=== PATIENT | male | born 1970 | race Caucasian/White ===

== ENCOUNTER 2019-06-21 18:06 | Inpatient (IN) | payer SELFPAY ==
[~2019-06-21] VITALS: Ht 182.9 cm; Wt 98.3 kg
[~2019-06-21 18:06] MED LIST: ASPI325EC PO; LISI20 PO; LISI5 PO; MULVITMIND PO; OMEP20ER PO; OXYACE5T PO; Prilosec Otc20 MG PO
[2019-06-21 18:55] LABS: BASOPHILS ABSOLUTE AUTO 0.02 K/mm3 (0.00-0.23); BASOPHILS PERCENT AUTO 0 % (0-2); EOSINOPHILS ABSOLUTE AUTO 0.01 K/mm3 (0.00-0.68); EOSINOPHILS PERCENT AUTO 0 % (0-6); Hematocrit 32.5 % (37.0-53.0); Hemoglobin 10.9 g/dL (13.5-17.5); IMMATURE GRAN ABSOLUTE AUTO 0.06 K/mm3 (0.00-0.10); IMMATURE GRAN PERCENT AUTO 1 % (0-1); LYMPHOCYTES ABSOLUTE AUTO 0.77 K/mm3 (0.84-5.20); LYMPHOCYTES PERCENT AUTO 17 % (21-46); MONOCYTES ABSOLUTE AUTO 0.43 K/mm3 (0.16-1.47); MONOCYTES PERCENT AUTO 10 % (4-13); Mean Corpuscular HGB 31.1 pg (26.0-34.0); Mean Corpuscular HGB Conc 33.5 g/dL (31.5-36.5); Mean Corpuscular Volume 93 fL (80-100); Mean Platelet Volume 11.1 fL (9.1-12.4); NEUTROPHILS PERCENT AUTO 71 % (41-73); Platelet Count 67 K/mm3 (150-400); RDW Coefficient Variation 18.7 % (11.7-14.2); RDW Standard Deviation 63.5 fL (35.1-46.3); White Blood Cell Count 4.49 K/mm3 (4.00-11.30)
[2019-06-21 19:04] LABS: Alanine Aminotransfer (ALT/SGP 18 U/L (12-78); Albumin, Blood 2.8 g/dL (3.4-5.0); Albumin/Globulin Ratio 0.6 (0.8-1.8); Alk Phos 73 U/L (50-136); Anion Gap 18 mmol/L (6-16); Aspartate Aminotrans (AST/SGOT 111 U/L (12-37); Bilirubin, Total 2.5 mg/dL (0.1-1.0); Blood Urea Nitrogen 5 mg/dL (8-24); Bun/Creatinine Ratio 11.5 (12.0-20.0); CO2, Blood 19 mmol/L (21-32); Calcium, Blood 6.2 mg/dL (8.5-10.1); Chloride, Blood 92 mmol/L (98-108); Creatinine, Blood 0.43 mg/dL (0.60-1.20); Ethanol (Alcohol), Blood, Med 90 mg/dL; Glomerular Filtration Rate >60 (60-); Glucose, Blood 66 mg/dL (70-99); Potassium, Blood 2.5 mmol/L (3.5-5.5); Sodium, Blood 129 mmol/L (136-145); Total Protein, Blood 7.8 g/dL (6.4-8.2)
[2019-06-21 19:50] LABS: Magnesium, Blood 0.4 mg/dL (1.6-2.4)
[2019-06-21 19:51] LABS: Beta-hydroxybutyrate 57.1 mg/dL (0.2-2.8)
[2019-06-22 04:31] LABS: BASOPHILS ABSOLUTE AUTO 0.02 K/mm3 (0.00-0.23); BASOPHILS PERCENT AUTO 1 % (0-2); EOSINOPHILS ABSOLUTE AUTO 0.02 K/mm3 (0.00-0.68); EOSINOPHILS PERCENT AUTO 1 % (0-6); Hematocrit 27.9 % (37.0-53.0); Hemoglobin 9.4 g/dL (13.5-17.5); IMMATURE GRAN ABSOLUTE AUTO 0.04 K/mm3 (0.00-0.10); IMMATURE GRAN PERCENT AUTO 1 % (0-1); LYMPHOCYTES ABSOLUTE AUTO 0.65 K/mm3 (0.84-5.20); LYMPHOCYTES PERCENT AUTO 17 % (21-46); MONOCYTES ABSOLUTE AUTO 0.33 K/mm3 (0.16-1.47); MONOCYTES PERCENT AUTO 9 % (4-13); Mean Corpuscular HGB 31.2 pg (26.0-34.0); Mean Corpuscular HGB Conc 33.7 g/dL (31.5-36.5); Mean Corpuscular Volume 93 fL (80-100); Mean Platelet Volume 10.7 fL (9.1-12.4); NEUTROPHILS ABSOLUTE AUTO 2.81 K/mm3 (1.96-9.15); NEUTROPHILS PERCENT AUTO 73 % (41-73); Platelet Count 57 K/mm3 (150-400); RDW Coefficient Variation 18.4 % (11.7-14.2); RDW Standard Deviation 62.5 fL (35.1-46.3); Red Blood Cell Count 3.01 M/mm3 (4.30-5.90); White Blood Cell Count 3.87 K/mm3 (4.00-11.30)
[2019-06-22 04:47] LABS: Troponin I 0.065 ng/mL (0.000-0.040)
[2019-06-22 04:50] LABS: Anion Gap 16 mmol/L (6-16); Blood Urea Nitrogen 6 mg/dL (8-24); CO2, Blood 23 mmol/L (21-32); Chloride, Blood 94 mmol/L (98-108); Creatinine, Blood 0.55 mg/dL (0.60-1.20); Glomerular Filtration Rate >60 (60-); Glucose, Blood 81 mg/dL (70-99); Magnesium, Blood 0.8 mg/dL (1.6-2.4); Potassium, Blood 2.5 mmol/L (3.5-5.5); Sodium, Blood 133 mmol/L (136-145)
[2019-06-22 04:51] LABS: Calcium, Blood 5.9 mg/dL (8.5-10.1)
--- NOTE | 2019-06-22 06:33 | NUR ---
shift summary: Patient arrived to pcu4 at approx 2140 via gurney from ed, patient alert and oriented but too weak to transfer to bed without maximum assist/slide sheet. Skin has multiple small bruises and scabs in various sizes and stages of healing all throughout. Patient admission and room orientation completed, friend at bedside throughout night. Seizure pads applied, patients CIWA scores remain 0, last drink was reportedly 06/21/19 sometime in the afternoon. Patients urine is orange and his sclera and skin are jaundiced appearing. VSS, call light within reach, bed low and locked with exit alarm on, tele placed on patient per unit protocol.
--- NOTE | 2019-06-22 08:00 | NUR ---
pt laying in bed, visitor in room, pt is a/ox3, pleasant and cooperative with care, follows commands well, denies pain at this time, lungs are clear t/o, resp even and unlabored, no cough noted, hrr, tle in place, running st per monitor, see strip, no edema noted, ppp+1, cap refill <3sec, vs stable, iv sites are clear and patent, to r hand and r ac, voids via urinal, dk orange color, skin has some sores, to head, otherwise intact, maew, very weak, naima, call light in reach.
--- NOTE | 2019-06-22 13:30 | NUR ---
PT FAMILY IN TO VISIT, ASKING QUESTIONS, WAS WILLING TO GO IN AND SPEAK TO THEM, PT UP TO CHAIR THIS AM FOR A FEW HRS. NO COMPLAINTS, CALL LIGHT IN REACH.
[2019-06-22 15:28] LABS: Anion Gap 13 mmol/L (6-16); Blood Urea Nitrogen 9 mg/dL (8-24); Bun/Creatinine Ratio 11.2 (12.0-20.0); CO2, Blood 24 mmol/L (21-32); Calcium, Blood 6.1 mg/dL (8.5-10.1); Chloride, Blood 97 mmol/L (98-108); Glomerular Filtration Rate >60 (60-); Glucose, Blood 113 mg/dL (70-99); Potassium, Blood 2.9 mmol/L (3.5-5.5); Sodium, Blood 134 mmol/L (136-145)
[2019-06-22 15:40] LABS: Magnesium, Blood 0.8 mg/dL (1.6-2.4)
--- NOTE | 2019-06-22 19:15 | NUR ---
PT MAG CAME BACK THE SAME THIS AFTERNOON, RUNNING MORE RIDERS, LOTS OF FAMILY IN ROOM. NO CHANGES IN PT CONDITION, CALL LIGHT IN REACH.
--- NOTE | 2019-06-23 04:06 | NUR ---
SHIFT SUMMARY: PATIENT UP TO BSC WITH 1 PERSON ASSIST AND FWW, VSS. PATIENT STAES HE FEELS BETTER. BED LOW AND LOCKED, FAMILY AT BEDSIDE ALL SHIFT, PATIENT COMPLIANT WITH CARE, NO OTHER ISSUES NOTED THIS SHIFT.
[2019-06-23 04:21] LABS: BASOPHILS ABSOLUTE AUTO 0.01 K/mm3 (0.00-0.23); BASOPHILS PERCENT AUTO 0 % (0-2); EOSINOPHILS ABSOLUTE AUTO 0.02 K/mm3 (0.00-0.68); EOSINOPHILS PERCENT AUTO 1 % (0-6); Hematocrit 26.2 % (37.0-53.0); Hemoglobin 8.7 g/dL (13.5-17.5); IMMATURE GRAN ABSOLUTE AUTO 0.04 K/mm3 (0.00-0.10); IMMATURE GRAN PERCENT AUTO 1 % (0-1); LYMPHOCYTES ABSOLUTE AUTO 0.48 K/mm3 (0.84-5.20); LYMPHOCYTES PERCENT AUTO 17 % (21-46); MONOCYTES ABSOLUTE AUTO 0.46 K/mm3 (0.16-1.47); MONOCYTES PERCENT AUTO 16 % (4-13); Mean Corpuscular HGB 31.5 pg (26.0-34.0); Mean Corpuscular HGB Conc 33.2 g/dL (31.5-36.5); Mean Corpuscular Volume 95 fL (80-100); Mean Platelet Volume 10.7 fL (9.1-12.4); NEUTROPHILS ABSOLUTE AUTO 1.79 K/mm3 (1.96-9.15); NEUTROPHILS PERCENT AUTO 64 % (41-73); RDW Coefficient Variation 18.5 % (11.7-14.2); RDW Standard Deviation 63.8 fL (35.1-46.3); Red Blood Cell Count 2.76 M/mm3 (4.30-5.90)
[2019-06-23 04:27] LABS: Platelet Count 49 K/mm3 (150-400)
[2019-06-23 04:41] LABS: Anion Gap 10 mmol/L (6-16); Blood Urea Nitrogen 8 mg/dL (8-24); Bun/Creatinine Ratio 12.8 (12.0-20.0); CO2, Blood 26 mmol/L (21-32); Calcium, Blood 6.3 mg/dL (8.5-10.1); Chloride, Blood 100 mmol/L (98-108); Creatinine, Blood 0.63 mg/dL (0.60-1.20); Glomerular Filtration Rate >60 (60-); Glucose, Blood 101 mg/dL (70-99); Magnesium, Blood 1.2 mg/dL (1.6-2.4); Potassium, Blood 2.9 mmol/L (3.5-5.5); Sodium, Blood 136 mmol/L (136-145)
[2019-06-23 04:48] LABS: Phosphorus, Blood 0.8 mg/dL (2.5-4.9)
--- NOTE | 2019-06-23 08:21 | NUR ---
PT LAYING IN BED AWAKE, MOM IN ROOM, STATES HE HAD A PRETTY GOOD NIGHT, LUNGS ARE CLEAR T/O, RESP EVEN AND UNLABORED, NO COUGH NOTED, HRR, TELE IN PLACE RUNNING ST PER MONITOR, SEE STRIP, NO EDEMA NOTED, PPP+2, CAP REFILL <3SEC, VS STABLE, AFEBRILE, IV SITE TO RAC, SITE IS CLEAR AND PATENT, BTX4, ABD FLAT SOFT NONTENDER, VOIDS DK TAMEKA URINE VIA URINAL, SKIN PALE, FRAIL, OTHERWISE C/W/D, PRADEEP STAPLES, CALL LIGHT IN REACH.
--- NOTE | 2019-06-23 11:00 | NUR ---
PATIENT TRANSFERRED FROM PCU 4 TO ROOM 358. PATIENT IS A/O X4, PARENTS AT BEDSIDE. VSS, ON RA. KPHOS RUNNING CURRENTLY. DENIES ANY PAIN. REPORTS RECEIVED FROM MI PHELPS. PATIENT ORIENTED TO ROOM AND USE OF CALL LIGHT.
--- NOTE | 2019-06-23 11:14 | NUR ---
PT HAS BEEN TRANSFERRED TO MEDICAL FLOOR, LEFT VIA WHEELCHAIR WITH MANAGER STRATEGIC IN ATTENDENCE, REPORT TO HOLLIE STARK, ALL BELONGINGS WENT WITH PT.
[2019-06-23 13:06] LABS: Anion Gap 11 mmol/L (6-16); Blood Urea Nitrogen 8 mg/dL (8-24); Bun/Creatinine Ratio 11.9 (12.0-20.0); CO2, Blood 23 mmol/L (21-32); Calcium, Blood 6.6 mg/dL (8.5-10.1); Chloride, Blood 102 mmol/L (98-108); Creatinine, Blood 0.67 mg/dL (0.60-1.20); Glomerular Filtration Rate >60 (60-); Glucose, Blood 125 mg/dL (70-99); Magnesium, Blood 1.6 mg/dL (1.6-2.4); Potassium, Blood 3.3 mmol/L (3.5-5.5); Sodium, Blood 136 mmol/L (136-145)
[2019-06-24 06:03] LABS: Alanine Aminotransfer (ALT/SGP 15 U/L (12-78); Albumin, Blood 2.6 g/dL (3.4-5.0); Albumin/Globulin Ratio 0.6 (0.8-1.8); Alk Phos 81 U/L (50-136); Anion Gap 10 mmol/L (6-16); Aspartate Aminotrans (AST/SGOT 80 U/L (12-37); Bilirubin, Total 2.7 mg/dL (0.1-1.0); Blood Urea Nitrogen 8 mg/dL (8-24); Bun/Creatinine Ratio 13.1 (12.0-20.0); CO2, Blood 24 mmol/L (21-32); Calcium, Blood 6.5 mg/dL (8.5-10.1); Chloride, Blood 104 mmol/L (98-108); Creatinine, Blood 0.61 mg/dL (0.60-1.20); Globulin, Blood 4.5 g/dL (2.2-4.0); Glomerular Filtration Rate >60 (60-); Glucose, Blood 113 mg/dL (70-99); Magnesium, Blood 1.3 mg/dL (1.6-2.4); Phosphorus, Blood 1.5 mg/dL (2.5-4.9); Potassium, Blood 2.9 mmol/L (3.5-5.5); Sodium, Blood 138 mmol/L (136-145); Total Protein, Blood 7.1 g/dL (6.4-8.2)
--- NOTE | 2019-06-24 07:15 | NUR ---
SHIFT SUMMARY NO ACUTE CHANGES TO REPORT THIS SHIFT. PT HAS RESTED FOR MOST OF THE NIGHT. CIWA'S ARE AT A ZERO. A/OX4, PLESANT, MAKES NEEDS KNOWN. PT STRENGTH IS RETURNING AND HE IS ABLE TO AMBULATE WELL WITH 1 PA. VITALS STABLE. PT MOTHER AT BEDSIDE T/O THE NIGHT. BED IN LOWEST POSITION, CALL LIGHT WITHIN REACH. WILL CONTINUE TO MONITOR AND REPORT TO ONCOMING RN.
--- NOTE | 2019-06-24 18:05 | NUR ---
PATIENT A/OX4, UP WITH FWW AND 1 ASSIST. DENIES ANY PAIN OR DISCOMFORT. ELECTROLYTES REPLACED TODAY. TOLERATING REGULAR DIET. VSS, ON RA. VOIDING IN RESTROOM, URINE TEA COLORED. SR/ST ON TELE, DENIES ANY CP OR SOB. CIWA < 8, NO WITHDRAWAL MEDICATION NEEDED THIS SHIFT. 20G IV TO L FA WNL AND SL. WORKED WITH PT/OT TODAY. PATIENT IS CALM AND COOPERATIVE WITH CARE, AND USES CALL LIGHT APPROPRIATELY FOR ASSISTANCE.
--- NOTE | 2019-06-25 04:55 | NUR ---
SUMMARY PT HAS HAD NOTED EPISODE OF DIARRHEA THIS SHIFT. PT REPORTED FEELING FATIGUED AT BEGINNING OF SHIFT. PT HAS SLEPT WELL T/O SHIFT. PT CIWA HAS BEEN UNREMARKABLE, "0". PT MOTHER STAYED THE NIGHT. PT IS EAGER TO GO HOME. PT CURRENTLY SLEEPING IN NO DISTRESS. CALL LIGHT IN REACH
[2019-06-25 05:21] LABS: BASOPHILS ABSOLUTE AUTO 0.02 K/mm3 (0.00-0.23); BASOPHILS PERCENT AUTO 1 % (0-2); EOSINOPHILS ABSOLUTE AUTO 0.03 K/mm3 (0.00-0.68); EOSINOPHILS PERCENT AUTO 1 % (0-6); Hemoglobin 9.1 g/dL (13.5-17.5); IMMATURE GRAN ABSOLUTE AUTO 0.04 K/mm3 (0.00-0.10); IMMATURE GRAN PERCENT AUTO 1 % (0-1); LYMPHOCYTES ABSOLUTE AUTO 0.58 K/mm3 (0.84-5.20); LYMPHOCYTES PERCENT AUTO 17 % (21-46); MONOCYTES ABSOLUTE AUTO 0.76 K/mm3 (0.16-1.47); MONOCYTES PERCENT AUTO 22 % (4-13); Mean Corpuscular HGB 31.9 pg (26.0-34.0); Mean Corpuscular HGB Conc 32.5 g/dL (31.5-36.5); Mean Platelet Volume 11.2 fL (9.1-12.4); NEUTROPHILS ABSOLUTE AUTO 1.97 K/mm3 (1.96-9.15); NEUTROPHILS PERCENT AUTO 58 % (41-73); Platelet Count 68 K/mm3 (150-400); RDW Coefficient Variation 18.9 % (11.7-14.2); RDW Standard Deviation 68.8 fL (35.1-46.3); Red Blood Cell Count 2.85 M/mm3 (4.30-5.90)
[2019-06-25 05:23] LABS: Mean Corpuscular Volume 98 fL (80-100)
[2019-06-25 05:50] LABS: Magnesium, Blood 1.6 mg/dL (1.6-2.4)
[2019-06-25 05:53] LABS: Alanine Aminotransfer (ALT/SGP 16 U/L (12-78); Albumin, Blood 2.3 g/dL (3.4-5.0); Albumin/Globulin Ratio 0.5 (0.8-1.8); Alk Phos 67 U/L (50-136); Anion Gap 10 mmol/L (6-16); Aspartate Aminotrans (AST/SGOT 72 U/L (12-37); Bilirubin, Total 2.3 mg/dL (0.1-1.0); Blood Urea Nitrogen 9 mg/dL (8-24); Bun/Creatinine Ratio 15.3 (12.0-20.0); CO2, Blood 20 mmol/L (21-32); Calcium, Blood 6.6 mg/dL (8.5-10.1); Chloride, Blood 105 mmol/L (98-108); Creatinine, Blood 0.59 mg/dL (0.60-1.20); Globulin, Blood 4.6 g/dL (2.2-4.0); Glomerular Filtration Rate >60 (60-); Glucose, Blood 88 mg/dL (70-99); Phosphorus, Blood 3.1 mg/dL (2.5-4.9); Potassium, Blood 3.6 mmol/L (3.5-5.5); Sodium, Blood 135 mmol/L (136-145); Total Protein, Blood 6.9 g/dL (6.4-8.2)
[2019-06-25] MEDS ORDERED: THERA1 EACH PO (10:49)
--- NOTE | 2019-06-25 18:17 | NUR ---
PATIENT DISCHARGE: PATIENT DISCHARGED TO HOME/XFR TO HOME HEALTH THIS SHIFT. MEDICATION RECONCILIATION COMPLETED; NO NEW MEDS TO REPORT. DISCHARGE EDUCATION COMPLETED WITH PATIENT AND FAMILY. PATIENT TRANSPORTED TO EXIT BY [facility] STAFF WITH WHEELCHAIR AT 1630. PATIENT DEPARTED [facility] VIA PRIVATE AUTO.
== END 2019-06-25 16:30 | disposition home health service (06) | DRG 641 ==
LOC: ER 18:06 → PCU 21:31 → MEDS 06-23 11:11 → ENPENDDIS 06-25 10:00 → MEDS 06-25 16:30
PROVIDERS: Emergency Medicine; Hospitalist; Internal Medicine; ADMIT Internal Medicine
DX: E87.6 Hypokalemia (principal); D61.818 Other pancytopenia; E83.39 Other disorders of phosphorus metabolism; E87.2 Acidosis; F10.10 Alcohol abuse, uncomplicated; G62.1 Alcoholic polyneuropathy; E83.42 Hypomagnesemia; R26.89 Other abnormalities of gait and mobility; K70.31 Alcoholic cirrhosis of liver with ascites; D63.1 Anemia in chronic kidney disease; I10 Essential (primary) hypertension; F17.220 Nicotine dependence, chewing tobacco, uncomplicated
CPT/HCPCS: 36415; 70450; 71045; 76705; 80048; 80053; 82010; 82140; 82272; 83735; 84100; 84484; 85025; 86850; 86900; 86901; 93005; 93010; 96365; 96375; 97110; 97162; 97166; 97530; 97535; 99285-25; C9113; G0480; J0610; J2060; J3411; J3475; J3480; J7042; J7050; J7060

== ENCOUNTER 2019-10-20 15:37 | Emergency (ER) | payer SELFPAY ==
[~2019-10-20] VITALS: Ht 182.9 cm; Wt 94.8 kg
[~2019-10-20 15:37] MED LIST changes: +Daily Multiple1 EACH PO; +Vitamin D2000 UNIT PO
[2019-10-20] MEDS ORDERED: Cod Liver Oil1 EAC2 (15:58)
[2019-10-20] MEDS ORDERED: AMOX50 (15:58)
[2019-10-20] MEDS ORDERED: OMEP20ER (15:59)
[2019-10-20 19:30] LABS: BASOPHILS ABSOLUTE AUTO 0.04 K/mm3 (0.00-0.23); BASOPHILS PERCENT AUTO 0 % (0-2); EOSINOPHILS ABSOLUTE AUTO 0.03 K/mm3 (0.00-0.68); EOSINOPHILS PERCENT AUTO 0 % (0-6); Hematocrit 38.3 % (37.0-53.0); Hemoglobin 11.1 g/dL (13.5-17.5); IMMATURE GRAN ABSOLUTE AUTO 0.04 K/mm3 (0.00-0.10); IMMATURE GRAN PERCENT AUTO 0 % (0-1); LYMPHOCYTES ABSOLUTE AUTO 0.49 K/mm3 (0.84-5.20); LYMPHOCYTES PERCENT AUTO 5 % (21-46); MONOCYTES ABSOLUTE AUTO 0.45 K/mm3 (0.16-1.47); MONOCYTES PERCENT AUTO 5 % (4-13); Mean Corpuscular Volume 72 fL (80-100); Mean Platelet Volume 9.2 fL (9.1-12.4); NEUTROPHILS ABSOLUTE AUTO 8.46 K/mm3 (1.96-9.15); NEUTROPHILS PERCENT AUTO 89 % (41-73); Platelet Count 800 K/mm3 (150-400); RDW Coefficient Variation 14.6 % (11.7-14.2); RDW Standard Deviation 38.1 fL (35.1-46.3); Red Blood Cell Count 5.29 M/mm3 (4.30-5.90); White Blood Cell Count 9.51 K/mm3 (4.00-11.30)
[2019-10-20] MEDS ORDERED: JEVITY 1.2 CAL237 M1 PO (19:37)
[2019-10-20] MEDS ORDERED: MIRALAX17 GM PO (19:40)
[2019-10-20] MEDS ORDERED: [UNRECOGNIZED DRUG - OTHER] PO (19:41)
[2019-10-20] MEDS ORDERED: [UNRECOGNIZED DRUG - OTHER] PO (19:42)
[2019-10-20 19:54] LABS: Alanine Aminotransfer (ALT/SGP 31 U/L (12-78); Albumin, Blood 2.6 g/dL (3.4-5.0); Albumin/Globulin Ratio 0.5 (0.8-1.8); Alk Phos 246 U/L (50-136); Anion Gap 9 mmol/L (6-16); Aspartate Aminotrans (AST/SGOT 29 U/L (12-37); Bilirubin, Total 0.7 mg/dL (0.1-1.0); Blood Urea Nitrogen 19 mg/dL (8-24); Bun/Creatinine Ratio 24.7 (12.0-20.0); CO2, Blood 24 mmol/L (21-32); Calcium, Blood 8.8 mg/dL (8.5-10.1); Chloride, Blood 99 mmol/L (98-108); Creatinine, Blood 0.77 mg/dL (0.60-1.20); Globulin, Blood 5.3 g/dL (2.2-4.0); Glomerular Filtration Rate >60 (60-); Glucose, Blood 118 mg/dL (70-99); Potassium, Blood 4.5 mmol/L (3.5-5.5); Sodium, Blood 132 mmol/L (136-145); Total Protein, Blood 7.9 g/dL (6.4-8.2)
== END 2019-10-20 23:34 | disposition short-term general hospital (02) ==
LOC: ER 15:37
PROVIDERS: Student in an Organized Health Care Education/Training Program
DX: K94.23 Gastrostomy malfunction (principal); A41.9 Sepsis, unspecified organism; R65.20 Severe sepsis without septic shock; K65.9 Peritonitis, unspecified; I10 Essential (primary) hypertension; E11.9 Type 2 diabetes mellitus without complications; F17.220 Nicotine dependence, chewing tobacco, uncomplicated; Z79.899 Other long term (current) drug therapy
CPT/HCPCS: 36415; 74177; 80053; 83605; 83690; 85025; 96361-59; 96374-59; 96375-59; 99284-25; J1170; J2270; J2543; J7030; Q9967; U0002

== ENCOUNTER 2020-05-24 07:30 | Day surgery (SDC) | payer OTHER ==
[~2020-05-24] VITALS: Ht 182.9 cm; Wt 84.0 kg
[~2020-05-24 07:30] MED LIST changes: +AMOX50; +Cod Liver Oil1 EAC2; +JEVITY 1.2 CAL237 M1 PO; +MIRALAX17 GM PO; +OMEP20ER; +[UNRECOGNIZED DRUG - OTHER] PO; +[UNRECOGNIZED DRUG - OTHER] PO
[2020-05-24] MEDS ORDERED: FURO20 PO (08:00)
[2020-05-24] MEDS ORDERED: FEROSUL325 M1 PO (08:00)
[2020-05-24] MEDS ORDERED: SPIR50 PO (08:00)
[2020-05-24] MEDS ORDERED: LISI20 PO (08:01)
--- NOTE | 2020-05-24 11:50 | NUR ---
PT ANXIOUS TO GO HOME. ALERT AND ORIENTED, TALKED WITH DR ABOUT PROCEDURE. DISCHARGE GONE OVER WITH PT, VERBALIZES UNDERSTANDING. SALINE LOCK OUT WITH CATHETER INTACT. PT TO PRIVATE VEHICLE PER W/C.
== END 2020-05-24 11:49 | disposition home or self-care (01) ==
LOC: MHTC 07:30
DX: K74.60 Unspecified cirrhosis of liver (principal); I10 Essential (primary) hypertension; E11.9 Type 2 diabetes mellitus without complications; D64.9 Anemia, unspecified; Z93.4 Other artificial openings of gastrointestinal tract status; Z87.19 Personal history of other diseases of the digestive system
CPT/HCPCS: 36012; 75889; 76937; 99152; C1769; C1887; C1894; J1644; J2250; J3010; J7030; J7040; Q9967

== ENCOUNTER 2020-06-26 10:52 | Day surgery (SDC) | payer OTHER ==
[~2020-06-26] VITALS: Ht 182.9 cm; Wt 81.4 kg
[~2020-06-26 10:52] MED LIST changes: +FEROSUL325 M1 PO; +FURO20 PO; +SPIR50 PO
== END 2020-06-26 12:58 | disposition home or self-care (01) ==
LOC: ORSCSDS 10:52
PROVIDERS: Internal Medicine Gastroenterology
PROC: 0DJD8ZZ Inspection of Lower Intestinal Tract, Via Natural or Artificial Opening Endoscopic (ICD-10-PCS; principal; 2020-06-26 12:00)
DX: Z01.818 Encounter for other preprocedural examination (principal); K22.3 Perforation of esophagus; K70.31 Alcoholic cirrhosis of liver with ascites; I10 Essential (primary) hypertension; E11.9 Type 2 diabetes mellitus without complications; F17.220 Nicotine dependence, chewing tobacco, uncomplicated; Z79.899 Other long term (current) drug therapy
CPT/HCPCS: J2704; J7120

== ENCOUNTER 2020-07-06 07:14 | Emergency (ER) | payer OTHER ==
[~2020-07-06] VITALS: Ht 182.9 cm; Wt 81.7 kg
== END 2020-07-06 10:03 | disposition home or self-care (01) ==
LOC: ER 07:14
DX: K94.23 Gastrostomy malfunction (principal); I10 Essential (primary) hypertension; E11.9 Type 2 diabetes mellitus without complications; F17.220 Nicotine dependence, chewing tobacco, uncomplicated; Z79.899 Other long term (current) drug therapy
CPT/HCPCS: 43762; 74018; 99282-25; A9270

== ENCOUNTER 2021-02-14 10:51 | Day surgery (SDC) | payer OTHER ==
[~2021-02-14] VITALS: Ht 182.9 cm; Wt 83.0 kg
--- NOTE | 2021-02-14 13:04 | NUR ---
02/14/21 1304 Krystle Fiore DURING DISCHARGE PROCESS THE PATIENT HAD A PERSON LISTED A SUPERVISOR COOK ROOM AND A PHONE NUMBER, I CALLED THIS PERSON AND HE ANSWERED AND I ASKED HIM TO PULL HIS CAR TO THE FRONT DOOR AND THAT I WOULD WALK THIS PATIENT OUT. ASKED THE GENTLEMAN WHO ANSWERED WHAT TYPE AND COLOR OF CAR HE WAS DRIVING AND HE ANSWRED A [employer] [place] 4RUNNER. I PROCEEDED TO WALK THE PATIENT OUT AND WE WERE WALKING THIS PATIENT KEPT SAYING THINGS LIKE I'M OK, I GOT IT ETC. WHEN WE ARRIVED TO THE FRONT DOOR AND THE CAR WASN'T WAITING THE PATIENT LOOKS AROUND AND SHOWS ME A [employer]ARK BLUE 4RUNNER AND SAYS OH THAT'S HIS CAR. I STATED TO HIM THERE ISN'T ANYONE IN IT. THE PATIENT THEN SAYS "OH I SHOULD TELL YOU I REALLY DON'T HAVE A SUPERVISOR COOK ROOM" I BRING THE PATIENT BACK INSIDE AND STAY WITH HIM WHILE HE CALLS A FRIEND NAMED NINOSKA TO COME AND GIVEN HIM A RIDE HOME. I LEAVE THIS PATIENT IN STEPDOWN WITH THE NURSES THERE WATCHING AND AWARE OF THE SITUATION. CASSIE STARK COMES TO REPORT TO ME THAT THE SUPERVISOR COOK ROOM NINOSKA HAS ARRIVED AND SHE TOOK THIS PATIENT OUT TO HER CAR.
== END 2021-02-14 12:30 | disposition home or self-care (01) ==
LOC: ORSCSDS 10:51
PROVIDERS: Internal Medicine Gastroenterology
PROC: 0DJ08ZZ Inspection of Upper Intestinal Tract, Via Natural or Artificial Opening Endoscopic (ICD-10-PCS; principal; 2021-02-14 12:30)
DX: K74.60 Unspecified cirrhosis of liver (principal); I10 Essential (primary) hypertension; E11.9 Type 2 diabetes mellitus without complications; Z79.899 Other long term (current) drug therapy
CPT/HCPCS: J2704; J7120

== ENCOUNTER 2021-04-19 22:09 | Emergency (ER) | payer OTHER ==
[~2021-04-19] VITALS: Ht 182.9 cm; Wt 90.7 kg
== END 2021-04-20 00:30 | disposition home or self-care (01) ==
LOC: ER 22:09
DX: S09.90XA Unspecified injury of head, initial encounter (principal); S80.01XA Contusion of right knee, initial encounter; I10 Essential (primary) hypertension; E11.9 Type 2 diabetes mellitus without complications; Z79.899 Other long term (current) drug therapy; W19.XXXA Unspecified fall, initial encounter
CPT/HCPCS: 70450; 72125; 73080; 73562-RT; 99284-25

== ENCOUNTER 2023-04-20 12:28 | Inpatient (IN) | payer OTHER ==
[~2023-04-20] VITALS: Ht 180.3 cm; Wt 110.1 kg
[~2023-04-20 12:28] MED LIST changes: -OMEP20ER; +ONE DAILY MUL400 MCG PO; -[UNRECOGNIZED DRUG - OTHER] PO
[2023-04-20 14:18] LABS: BASOPHILS ABSOLUTE AUTO 0.01 K/mm3 (0.00-0.23); BASOPHILS PERCENT AUTO 0 % (0-2); EOSINOPHILS ABSOLUTE AUTO 0.01 K/mm3 (0.00-0.68); EOSINOPHILS PERCENT AUTO 0 % (0-6); Hematocrit 28.5 % (37.0-53.0); Hemoglobin 8.3 g/dL (13.5-17.5); IMMATURE GRAN ABSOLUTE AUTO 0.08 K/mm3 (0.00-0.10); IMMATURE GRAN PERCENT AUTO 1 % (0-1); LYMPHOCYTES ABSOLUTE AUTO 0.57 K/mm3 (0.84-5.20); LYMPHOCYTES PERCENT AUTO 8 % (21-46); MONOCYTES ABSOLUTE AUTO 0.71 K/mm3 (0.16-1.47); MONOCYTES PERCENT AUTO 10 % (4-13); Mean Corpuscular HGB 24.4 pg (26.0-34.0); Mean Corpuscular HGB Conc 29.1 g/dL (31.5-36.5); Mean Corpuscular Volume 84 fL (80-100); NEUTROPHILS ABSOLUTE AUTO 5.53 K/mm3 (1.96-9.15); NEUTROPHILS PERCENT AUTO 80 % (41-73); NRBC ABSOLUTE 0.02 K/mm3 (0.00-0.02); NRBC Auto 0.3 /100 WBC (0.0-0.2); Platelet Count 74 K/mm3 (150-400); RDW Standard Deviation 63.5 fL (35.1-46.3); White Blood Cell Count 6.91 K/mm3 (4.00-11.30)
[2023-04-20 14:31] LABS: Albumin, Blood 1.9 g/dL (3.4-5.0); Albumin/Globulin Ratio 0.4 (0.8-1.8); Bilirubin, Total 5.7 mg/dL (0.1-1.0); Bun/Creatinine Ratio 11.3 (12.0-20.0); Calcium, Blood 7.8 mg/dL (8.5-10.1); Creatinine, Blood 0.71 mg/dL (0.60-1.20); Globulin, Blood 4.4 g/dL (2.2-4.0); Potassium, Blood 4.1 mmol/L (3.5-5.5); Total Protein, Blood 6.3 g/dL (6.4-8.2)
[2023-04-20 15:14] LABS: Source, Urine Clean Catch
[2023-04-20 15:17] LABS: Appearance, Urine Cloudy (Clear); Blood, Urine 3+ (Neg); Glucose Qualitative, Urine Neg (Neg); Ketones, Urine 3+ (Neg); Leukocyte Esterase, Urine 3+ (Neg); Nitrite, Urine Pos (Neg); Protein, Urine 2+ (Neg); Urobilinogen, Urine 4+ (Normal)
[2023-04-20 15:23] LABS: Bilirubin, Urine 3+ (Neg)
[2023-04-20 15:25] LABS: Color, Urine Amber (P-Yellow); White Blood Cells, Urine TNTC /hpf (0-5)
[2023-04-20 15:27] LABS: Bacteria Many /hpf; Squamous Epithelial Cells Few /hpf (Few)
[2023-04-20 15:28] LABS: Amorphous Light (0-Heavy); Mucus Light (0-Heavy)
[2023-04-20 15:30] LABS: Hyaline Casts 0-2 /lpf (0-2); Transitional Epithelial Cells Rare /hpf (0-Rare)
[2023-04-20 18:07] LABS: International Normalized Ratio 1.41; Prothrombin Time Results 14.5 Sec (9.7-11.5)
[2023-04-20 19:22] LABS: Hematocrit 25.4 % (37.0-53.0); Hemoglobin 7.2 g/dL (13.5-17.5)
[2023-04-20 21:30] VITALS: BP 133/88
[2023-04-21 02:10] LABS: BASOPHILS ABSOLUTE AUTO 0.01 K/mm3 (0.00-0.23); BASOPHILS PERCENT AUTO 0 % (0-2); EOSINOPHILS ABSOLUTE AUTO 0.03 K/mm3 (0.00-0.68); EOSINOPHILS PERCENT AUTO 1 % (0-6); Hematocrit 26.7 % (37.0-53.0); Hemoglobin 7.8 g/dL (13.5-17.5); IMMATURE GRAN ABSOLUTE AUTO 0.07 K/mm3 (0.00-0.10); IMMATURE GRAN PERCENT AUTO 1 % (0-1); LYMPHOCYTES PERCENT AUTO 10 % (21-46); MONOCYTES ABSOLUTE AUTO 0.66 K/mm3 (0.16-1.47); MONOCYTES PERCENT AUTO 13 % (4-13); Mean Corpuscular HGB 24.8 pg (26.0-34.0); Mean Corpuscular HGB Conc 29.2 g/dL (31.5-36.5); Mean Corpuscular Volume 85 fL (80-100); NEUTROPHILS ABSOLUTE AUTO 3.81 K/mm3 (1.96-9.15); NEUTROPHILS PERCENT AUTO 75 % (41-73); Platelet Count 72 K/mm3 (150-400); RDW Coefficient Variation 21.1 % (11.7-14.2); RDW Standard Deviation 64.9 fL (35.1-46.3); Red Blood Cell Count 3.15 M/mm3 (4.30-5.90); White Blood Cell Count 5.08 K/mm3 (4.00-11.30)
[2023-04-21 02:32] LABS: Albumin, Blood 2.2 g/dL (3.4-5.0); Albumin/Globulin Ratio 0.6 (0.8-1.8); Bilirubin, Total 5.3 mg/dL (0.1-1.0); Calcium, Blood 7.7 mg/dL (8.5-10.1); Creatinine, Blood 0.75 mg/dL (0.60-1.20); Globulin, Blood 3.9 g/dL (2.2-4.0); Potassium, Blood 3.8 mmol/L (3.5-5.5); Total Protein, Blood 6.1 g/dL (6.4-8.2)
[2023-04-21 03:48] VITALS: BP 124/81
[2023-04-21 07:18] VITALS: BP 122/85
--- NOTE | 2023-04-21 07:46 | NUR ---
Shift Summary Pt came in from ED with dx of UTI+Sepsis and alcohol withdrawal. CIWA assessment was stable between 4-7. No c/o of pain or nausea. Pt is too weak to transfer out of bed at this time, at baseline he uses a walker but for the past 3 days he has been feeling weak, and tonight he doesn't feel safe getting out of bed. He is on tele running sinus tach 100-130. Incontinet voids and 3 loose bowel movements with a high water content. Pt is AOx4 and cooperative with care.
[2023-04-21 08:37] LABS: Hematocrit 26.7 % (37.0-53.0); Hemoglobin 7.7 g/dL (13.5-17.5)
[2023-04-21 14:16] LABS: Hematocrit 25.3 % (37.0-53.0); Hemoglobin 7.4 g/dL (13.5-17.5)
--- NOTE | 2023-04-21 15:37 | NUR ---
URINE URINE DARK ORANGE. SMALL VOLUME. IV FLUIDS INFUSING AT 125 ML/HR. ENCOURAGED PT TO INCREASE FLUID INTAKE. CARE ON GOING.
--- NOTE | 2023-04-21 16:20 | NUR ---
LOW OUTPT REPORTED TO DR HOWARD PT LOW URINE OUT PUT AND COLOR. CARE ONGOING.
[2023-04-21 17:39] VITALS: BP 116/92
[2023-04-21 19:34] VITALS: BP 111/79
[2023-04-21 20:17] LABS: Hematocrit 24.3 % (37.0-53.0); Hemoglobin 6.9 g/dL (13.5-17.5)
[2023-04-22] VITALS (7 sets, daily range): BP systolic 94–143; BP diastolic 60–88
[2023-04-22 05:23] LABS: Hematocrit 27.5 % (37.0-53.0); Hemoglobin 7.8 g/dL (13.5-17.5)
[2023-04-22 05:46] LABS: Albumin, Blood 2.1 g/dL (3.4-5.0); Albumin/Globulin Ratio 0.5 (0.8-1.8); Bilirubin, Total 5.1 mg/dL (0.1-1.0); Bun/Creatinine Ratio 14.6 (12.0-20.0); Calcium, Blood 7.9 mg/dL (8.5-10.1); Creatinine, Blood 0.76 mg/dL (0.60-1.20); Globulin, Blood 4.4 g/dL (2.2-4.0); Potassium, Blood 3.5 mmol/L (3.5-5.5); Total Protein, Blood 6.5 g/dL (6.4-8.2)
--- NOTE | 2023-04-22 07:25 | NUR ---
Shift Summary Pt became confused and disoriented last night, combined with his tremors and anxiety he scored a CIWA of 12. Gave PRN Ativan, 1 mg followed by 3 mg an hour later. Pt remained fairly confused t/o the night, alert and oriented to self and person only. He had no nausea, headache, sweating or sensetivity to light. This AM pt is insistent on going home but is still extremely weak and unable to ambulate. Pt rcving NS @ 125 and IV ABX for UTI. He is on tele, HR elevated t/o the night 100-130.
--- NOTE | 2023-04-22 10:24 | NUR ---
ETOH W/D PT CURRENTLY RESTING QUEITLY. HOB 45 DEGREES FOR ASPIRATION PRECAUTIONS. ATIVAN TOTAL 8MG, LIBRIUM TOTAL 75MG. HE WILL WAKE UP TO VOICE. COOPERATIVE WITH CARE. TELE HR 115. IVF INFUSING 125 ML/HR. CONTINUE POC.
--- NOTE | 2023-04-22 17:35 | NUR ---
EVENING NOTE PT AWAKE AND CONFUSED. COOPERATIVE WITH CARE. ATIVAN TOTAL 12MG, LIBRIUM 150MG. PARENTS AT BEDSIDE. NO ATTEMPTS TO CLIMB OOB OR PULL LINES. BED BATH DONE. INCONTENT OF URINE. URINE VERY DARK, ORANGE. PT CONTINUES TO BE JAUNDICED. IVF INFUSING 125 ML/HR. PLAN TO TRANSFER TO A HIGHER LEVEL OF CARE-PCU. CARE ON GOING.
--- NOTE | 2023-04-22 18:33 | NUR ---
PCU 9 TRANSFER TO U 9. REPORT GIVEN TO DOMENICA STARK.
--- NOTE | 2023-04-22 18:45 | NUR ---
Pt arrived from medical floor, in his bed, at approx 1815. Alert, oriented to person, but not to place. STates date is February 23, 2023. Asking questions about where he is and why everyone is awake so late at night. Responding well to reorientation attempts, cooperative and calm. CIWA score 6 at this time. IVF infusing NS at 125 cc/hour, left AC IV. R AC IV is patent, verified with 5 cc NS flush.
[2023-04-23 04:04] VITALS: BP 144/90
--- NOTE | 2023-04-23 06:48 | NUR ---
SHIFT SUMMARY PATIENT ALERT AND ORIENTED TO SELF AND ABLE TO FOLLOW SIMPLE DIRECTIONS, HE IS FORGETFUL AND OCCASIONALLY PULLING AT LINES. CIWA MAX OF 15 MEDICATED THREE TIMES OVERNIGHT ACCORDINGLY. SPO2 >90% ON ROOM AIR. VITAL SIGNS STABLE. DENIES CHEST PAIN AND SHORTNESS OF BREATH. WILL CONTINUE TO MONITOR. CALL LIGHT WITHIN REACH.
[2023-04-23 07:28] VITALS: BP 134/87
[2023-04-23 07:42] LABS: BASOPHILS ABSOLUTE AUTO 0.04 K/mm3 (0.00-0.23); BASOPHILS PERCENT AUTO 1 % (0-2); EOSINOPHILS ABSOLUTE AUTO 0.07 K/mm3 (0.00-0.68); EOSINOPHILS PERCENT AUTO 2 % (0-6); Hematocrit 29.2 % (37.0-53.0); IMMATURE GRAN ABSOLUTE AUTO 0.07 K/mm3 (0.00-0.10); IMMATURE GRAN PERCENT AUTO 2 % (0-1); LYMPHOCYTES ABSOLUTE AUTO 0.45 K/mm3 (0.84-5.20); LYMPHOCYTES PERCENT AUTO 10 % (21-46); MONOCYTES ABSOLUTE AUTO 0.59 K/mm3 (0.16-1.47); MONOCYTES PERCENT AUTO 13 % (4-13); Mean Corpuscular HGB 24.9 pg (26.0-34.0); Mean Corpuscular HGB Conc 27.4 g/dL (31.5-36.5); Mean Platelet Volume 10.1 fL (9.1-12.4); NEUTROPHILS ABSOLUTE AUTO 3.35 K/mm3 (1.96-9.15); NEUTROPHILS PERCENT AUTO 73 % (41-73); RDW Coefficient Variation 20.4 % (11.7-14.2); RDW Standard Deviation 67.9 fL (35.1-46.3); Red Blood Cell Count 3.21 M/mm3 (4.30-5.90); White Blood Cell Count 4.57 K/mm3 (4.00-11.30)
[2023-04-23 07:46] LABS: Bun/Creatinine Ratio 14.6 (12.0-20.0); Calcium, Blood 7.6 mg/dL (8.5-10.1); Creatinine, Blood 0.69 mg/dL (0.60-1.20); Potassium, Blood 3.4 mmol/L (3.5-5.5)
[2023-04-23 07:47] LABS: Mean Corpuscular Volume 91 fL (80-100); Platelet Count 99 K/mm3 (150-400)
[2023-04-23 12:12] VITALS: BP 122/81
[2023-04-23 15:10] VITALS: BP 129/88
--- NOTE | 2023-04-23 16:42 | NUR ---
SPEECH THERAPY ORDERED PT CHANGED TO [facility] SOFT DIET DUE TO COUGHING ON FOOD, THIN LIQUIDS, AND HAVING ISSUES SWALLLOWING MEDS. THIS WAS DISCUSSED W/ DR. GRESHAM. HE IS ABLE TO SWALLOW MEDICATIONS ONE AT A TIME IN APPLE SAUCE BUT NEEDS COACHING. HE IS A SUPERVISED FEEDER.
--- NOTE | 2023-04-23 17:58 | NUR ---
SHIFT SUMMARY PT IS A [facility] PT WHO'S CIWA IS CURRENTLY ABOUT 9-11. I JUST GAVE 1MG OF ATIVAN. SEE [facility] DOCUMENTATION AND EMAR FOR DAILY ASSEMENTS. HE HAS BEEN SR/ST 90'S-110'S ON TELE W/O ANY COMPLAINTS OF ANGINA OR CHEST PRESSURE. HIS SP02 HAS BEEN >90% ON RA AND HE DENIES ANY SOB. THE PT HAS BEEN PRETTY COURSE T/O. HE WORK WITH MAYUR FROM [facility] AND DEPENDING ON MENTATION HE IS A 2P MAX ASSIST W/ GAITBELT AND FWW PIVTO TRANSFER. THE PT DID NOT AMBULATE TODAY. A SPEECH THERAPY CONSULT WAS PLACED TODAY BECAUSE THE PT WAS HAVING A HARD TIME EATING AND SWALLOWING PILLS, SEE PREVIOUS NOTE. I DO THINK THE PT DOES BETTER TAKING HIS PILLS WITH PUDDING OR APPLE SAUCE ONE AT A TIME, DRINKING THICKENED LIQUIDS WITH A SPOON, AND EATING MECHANICAL SOFT FOODS. THE PT DOES HAVE A VIRTUAL EMERGING TECHNOLOGIES DIRECTOR IN THE ROOM, HAS A BED ALARM ON, HE HAS NON SLIP SOCKS ON, THREE SIDE RAILS ARE UP, CALL LIGHT IS IN REACH, AND THE DOOR REMAINS OPEN. THE PT'S PARENTS CAME AND VISITED A FEW TIMES TODAY AND HAVE BEEN UPDATES ON CARE. FIRE IGNITION RISK HAS BEEN ASSESSED.
--- NOTE | 2023-04-23 18:08 | NUR ---
I TALKED TO DR. GRESHAM ABOUT THE RASH ON THE PT'S FACE AND HE SAID TO JUST MONITOR IT AT THIS TIME.
[2023-04-23 22:18] VITALS: BP 104/75
[2023-04-24 03:37] VITALS: BP 128/75
--- NOTE | 2023-04-24 06:55 | NUR ---
SHIFT SUMMARY PATIENT ALERT AND ORIENTED X 2-3. CIWAS STABLE OVERNIGHT NOT REQUIRING TO BE MEDICATED, PATIENT HAS BECOME MORE ALERT AND ORIENTED THE NIGHT GONE ON. IS APPROPRIATELY FOLLOWING CONVERSATIONS, ASKING WHERE HIS CALL LIGHT IS, AND ASKING TO USE THE URINAL. CONTINUES ON ROOM AIR WITH SPO2 >90%. VITAL SIGNS STABLE. NO ACUTE ISSUES NOTED OVERNIGHT. WILL CONTINUE TO MONITOR. CALL LIGHT WITHIN REACH.
[2023-04-24 07:01] LABS: BASOPHILS ABSOLUTE AUTO 0.03 K/mm3 (0.00-0.23); BASOPHILS PERCENT AUTO 1 % (0-2); EOSINOPHILS ABSOLUTE AUTO 0.07 K/mm3 (0.00-0.68); EOSINOPHILS PERCENT AUTO 2 % (0-6); Hematocrit 25.2 % (37.0-53.0); IMMATURE GRAN ABSOLUTE AUTO 0.05 K/mm3 (0.00-0.10); IMMATURE GRAN PERCENT AUTO 1 % (0-1); LYMPHOCYTES ABSOLUTE AUTO 0.44 K/mm3 (0.84-5.20); LYMPHOCYTES PERCENT AUTO 9 % (21-46); MONOCYTES PERCENT AUTO 13 % (4-13); Mean Corpuscular HGB 24.6 pg (26.0-34.0); Mean Corpuscular HGB Conc 27.8 g/dL (31.5-36.5); Mean Corpuscular Volume 89 fL (80-100); Mean Platelet Volume 10.3 fL (9.1-12.4); NEUTROPHILS ABSOLUTE AUTO 3.48 K/mm3 (1.96-9.15); NEUTROPHILS PERCENT AUTO 75 % (41-73); Platelet Count 108 K/mm3 (150-400); RDW Coefficient Variation 20.7 % (11.7-14.2); RDW Standard Deviation 67.6 fL (35.1-46.3); Red Blood Cell Count 2.84 M/mm3 (4.30-5.90); White Blood Cell Count 4.67 K/mm3 (4.00-11.30)
[2023-04-24 07:22] VITALS: BP 122/86
[2023-04-24 07:25] LABS: Bun/Creatinine Ratio 15.5 (12.0-20.0); Calcium, Blood 7.3 mg/dL (8.5-10.1); Creatinine, Blood 0.58 mg/dL (0.60-1.20); Potassium, Blood 3.2 mmol/L (3.5-5.5)
--- NOTE | 2023-04-24 08:38 | NUR ---
PT COVERED FOR CIWA OF 8 THIS MORNING, HE HAS A NOTED STRONG TERMOR AND TACHY ON MONITOR. HE ATTEMPTED TO WORK WITH OCCUPATIONAL THERAPY WHICH WAS NOT COMPLETELY SUCCESSFUL, PT WAS ABLE TO SIT UP AT THE SIDE OF THE BED AND FLEX ARMS BUT WAS UNABLE TO STAND
[2023-04-24 11:35] VITALS: BP 118/85
--- NOTE | 2023-04-24 12:17 | NUR ---
STATUS CHANGED TO MEDICAL WITH TELE. HIS CIWA IS NEGATIVE AT THIS TIME HE HAS BEEN RESTING WELL SINCE LIBRIUM ADMINISTRATION THIS AM, ALL SIGNS OF ETOH WITHDRAWL CEASED AFTER MEDICATION WAS GIVEN. JOEYS
[2023-04-24 14:24] LABS: BASOPHILS ABSOLUTE AUTO 0.04 K/mm3 (0.00-0.23); BASOPHILS PERCENT AUTO 1 % (0-2); EOSINOPHILS ABSOLUTE AUTO 0.07 K/mm3 (0.00-0.68); EOSINOPHILS PERCENT AUTO 1 % (0-6); Hematocrit 28.7 % (37.0-53.0); Hemoglobin 7.9 g/dL (13.5-17.5); IMMATURE GRAN ABSOLUTE AUTO 0.05 K/mm3 (0.00-0.10); IMMATURE GRAN PERCENT AUTO 1 % (0-1); LYMPHOCYTES ABSOLUTE AUTO 0.55 K/mm3 (0.84-5.20); LYMPHOCYTES PERCENT AUTO 11 % (21-46); MONOCYTES ABSOLUTE AUTO 0.57 K/mm3 (0.16-1.47); MONOCYTES PERCENT AUTO 11 % (4-13); Mean Corpuscular HGB 24.5 pg (26.0-34.0); Mean Corpuscular HGB Conc 27.5 g/dL (31.5-36.5); Mean Corpuscular Volume 89 fL (80-100); Mean Platelet Volume 10.6 fL (9.1-12.4); NEUTROPHILS ABSOLUTE AUTO 3.75 K/mm3 (1.96-9.15); NEUTROPHILS PERCENT AUTO 75 % (41-73); Platelet Count 123 K/mm3 (150-400); RDW Coefficient Variation 20.7 % (11.7-14.2); RDW Standard Deviation 67.2 fL (35.1-46.3); Red Blood Cell Count 3.22 M/mm3 (4.30-5.90); White Blood Cell Count 5.03 K/mm3 (4.00-11.30)
[2023-04-24 15:33] VITALS: BP 126/90
--- NOTE | 2023-04-24 17:52 | NUR ---
PT WITH LOW URINE OUTPUT, BLADDER SCAN WAS PERFORMED, THERE WERE QUESTIONABLE RESULTS OF BLADDER SCAN RELATED TO ASCITES. PT REPORTS THAT HE HAS A STRONG URGE TO VOID AND IS UNABLE TO, PT AGREEABLE TO STRAIGHT CATH. STRIAGHT CATH WAS PERFORMED WITH 25ML URINE OUTPUT, REPEAT BLADDER SCAN SHOWS LESS THAN 100ML. DR GUERRA IS CALLED ABOUT LOW URINE OUTPUT, HE IS MADE AWARE, KIDNEY FUNCTION REMAINS PRESERVED, THERE ARE NO FURTHER ORDERS FROM MD. PT REMAINS ALERT, HE IS ORIENTED X3 BUT THIS ORIENTATION WAXES AND WANES T/O THE DAY. PT IS CALM AND PLEASANT WITH ME, BUT DOES GET ANGRY WITH BUSINESS ADMINISTRATION PROGRAM CHAIR EASILY. HIS DIET IS CHANGED TO PUREE, HE IS NECTAR THICK LIQUIDS WITH A SPOON, MEDS ARE CRUSHED IN APPLESAUCE. THE RASH TO FACE HAS REMAINED UNCHANGED FOR THIS SHIFT, PER FAMILY THIS RASH IS NEW, PT STS THAT THE RASH IS NOT NEW. VSS.
--- NOTE | 2023-04-24 18:51 | NUR ---
PT BECOMING MORE CONFUSED AT THIS TIME, PICKING AT LINENS, HE WAS WAVING TO THE CAMERA IN ROOM THIS RN TO ROOM PT ASKED WHAT HE NEEDS PT STARES BLANKLY AT THIS RN, SLIGHT TREMOR NOTED HE IS PICKING AT LINENS. CIWA 8, 2MG ATIVAN ADMINISTERED AT THIS TIME FOR CIWA OF 8. ST 113 NOTED ON MONITOR. WHEN I RETURNED TO THE ROOM PT SUDDENLY HE IS VERBAL
[2023-04-24 21:46] VITALS: BP 119/82
[2023-04-25 04:03] VITALS: BP 138/90
--- NOTE | 2023-04-25 06:50 | NUR ---
SHIFT SUMMARY PATIENT ALERT AND ORIENTED X 2-3. WAS PLEASANTLY CONFUSE OVERNIGHT. CIWAS RANGED FROM 6-10, MEDICATED TWICE FOR ALCOHOL WITHDRAWL SYMPTOMS. VITAL SIGNS STABLE. ON ROOM AIR. WILL CONTINUE TO MONITOR. CALL LIGHT WITHIN REACH.
[2023-04-25 07:46] VITALS: BP 131/89
[2023-04-25 17:08] VITALS: BP 125/84
--- NOTE | 2023-04-25 17:26 | NUR ---
PT'S MENTATION HAS WAXES AND WANES T/O THE DAY. HIS CIWA INCREASES TO 8 TWICE DURING THIS SHIFT WHICH HE RESPONDS WELL TO LIBRIUM FOR CIWA COVERAGE. RASH HAS REMAINED UNCAHGED FOR THIS SHIFT. VSS. DENIES CP OR SOB. HE HAD A BED BATH TODAY, DRESSINGS APPLIED TO BUTTOCKS AND BARRIER CREAM. HE IS REPOSITIONED T/O THE DAY WHICH IS ALL TOLERATED WELL. FAMILY HAS BEEN UPDATED ABOUT SUGGESTION FOR SNF PLACEMENT. NS HAS BEEN STOPPED THIS SHIFT. HE CONTINUES TO HAVE LOW URINE OUTPUT WITH 1 UNMEASURED VOID TODAY. HE IS ABLE TO TAKE IN ORAL FLUIDS BY SPOON WHICH ARE NECTAR THICK, HE CAN NOT TOLERATE MUCH FLUIDS AT A TIME HE COUGHS, SPEECH THERAPY SAW HIM TODAY THERE WAS NO CHANGE IN PRECAUTIONS. PHYSICAL THERAPY SAW PT TODAY THEY WERE NOT ABLE TO AMBULATE PT HE IS TOO WEAK.
[2023-04-25 19:26] VITALS: BP 159/97
--- NOTE | 2023-04-25 22:18 | NUR ---
UPDATE THIS RN TO PT'S ROOM, PT W/ LEGS SWUNG OVER SIDE OF BED & FIDGETING W/ SIDE RAIL. PT AGITATED & RESTLESS, BECOMING UPSET W/ STAFF STATING "YOU ARE JUST NOT MAKING ANY SENSE RIGHT NOW" WHEN ASSISTING PT W/ PUTTING LEGS BACK IN BED. CALL PLACED TO PHYSICIAN REGARDING INCREASING AGITATION; ORDERS RECEIVED FOR OLANZAPINE 5-10MG QHS PRN AGITATION/INSOMNIA. AWAITING PHARMACY VERIFICATION AT THIS TIME. AVASURE CAMERA AND BED ALARM REMAIN IN PLACE FOR PT'S SAFETY PT IS CONTINUING TO ATTEMPT TO CLIMB OUT OF BED.
[2023-04-26 04:12] VITALS: BP 146/89
[2023-04-26 04:42] LABS: BASOPHILS ABSOLUTE AUTO 0.04 K/mm3 (0.00-0.23); BASOPHILS PERCENT AUTO 1 % (0-2); EOSINOPHILS ABSOLUTE AUTO 0.04 K/mm3 (0.00-0.68); EOSINOPHILS PERCENT AUTO 1 % (0-6); Hematocrit 29.3 % (37.0-53.0); Hemoglobin 7.8 g/dL (13.5-17.5); IMMATURE GRAN ABSOLUTE AUTO 0.02 K/mm3 (0.00-0.10); IMMATURE GRAN PERCENT AUTO 1 % (0-1); LYMPHOCYTES ABSOLUTE AUTO 0.53 K/mm3 (0.84-5.20); LYMPHOCYTES PERCENT AUTO 15 % (21-46); MONOCYTES ABSOLUTE AUTO 0.46 K/mm3 (0.16-1.47); MONOCYTES PERCENT AUTO 13 % (4-13); Mean Corpuscular HGB 24.3 pg (26.0-34.0); Mean Corpuscular HGB Conc 26.6 g/dL (31.5-36.5); Mean Corpuscular Volume 91 fL (80-100); Mean Platelet Volume 10.4 fL (9.1-12.4); NEUTROPHILS ABSOLUTE AUTO 2.39 K/mm3 (1.96-9.15); NEUTROPHILS PERCENT AUTO 69 % (41-73); Platelet Count 134 K/mm3 (150-400); RDW Coefficient Variation 20.6 % (11.7-14.2); RDW Standard Deviation 68.5 fL (35.1-46.3); RETICULOCYTE ABSOLUTE 0.1711 M/mm3 (0.0200-0.1100); RETICULOCYTE COUNT PERCENT 5.33 % (0.50-2.50); Red Blood Cell Count 3.21 M/mm3 (4.30-5.90); White Blood Cell Count 3.48 K/mm3 (4.00-11.30)
[2023-04-26 04:59] LABS: Percent Saturation 6.2 % (20.0-50.0)
--- NOTE | 2023-04-26 05:14 | NUR ---
END OF SHIFT NOTE: PT REMAINS ALERT, CONFUSED T/O SHIFT. AGITATED AT TIMES, ZYPREXA ADMINISTERED PER EMAR. CIWA SCORE UP TO 10 BUT DOWN TO 4 W/ ZYPREXA. CIWA UP TO 9 AT 0432, LIBRUIM ADMINISTERED PER EMAR. HR 100'S, SINUS TACH ON TELE. BP STABLE, MAP >65. SPO2 >95% ON RA. AFEBRILE. NO C/O PAIN, HEADACHE, OR N/V. REPOSITIONED Q2HR T/O SHIFT. MULTIPLE INCONTINENT VOIDS W/ TAMEKA COLORED URINE, ATTENDS CHANGED TO KEEP C/D/I. NO BM'S. ABLE TO VOID IN URINAL X1. WOUND DRESSINGS REMAIN C/D/I ON COCCYX, DRESSINGS CHANGED 04/25/23 ON DAY SHIFT. HEEL PROTECTORS CHANGED 04/26/23. CONTINUES TO TOLERATE MEDICATIONS CRUSHED IN APPLESAUCE. VERY MINIMAL PO INTAKE OTHERWISE. PT REMAINS ON BEDREST DUE TO PROFOUND WEAKNESS & AMS. NO OTHER EVENTS. CALL LIGHT WITHIN REACH, BED IN LOWEST POSITION. AVASURE CAMERA AND BED ALARM IN PLACE FOR PT SAFETY AND FALL PREVENTION. WILL REPORT TO ONCOMING RN.
[2023-04-26 09:30] VITALS: BP 107/78
[2023-04-26 16:53] VITALS: BP 117/82
--- NOTE | 2023-04-26 18:29 | NUR ---
DR GRESHAM IN ROOM THIS MORNING, PT'S MENTATION AND HALLUCINATIONS WAS DISCUSSED WITH . DECISION WAS MADE TO FOREGO GIVING ANY BENZODIAZEPINES TODAY TO MONITOR ORIENTATION. PT'S MENTATION CONTINUES TO WAX AND WANE T/O THE DAY. HE HAS HAD VISUAL HALLUCINATIONS THROUGH OUT THE ENTIRE DAY. VSS. HE HAS HAD 2 UNMREASURED VOIDS TODAY, WHICH IS AN IMPROVMENT IN URINE OUTPUT. VSS. HE DENIES CP OR SOB. HE IS CALM AND PLEASANT. FAMILY HAS BEEN IN TO VISIT, THEY ARE PDATED. HE HAS HAD A GOOD APPETITE.
[2023-04-26 19:19] VITALS: BP 108/82
[2023-04-27 03:42] VITALS: BP 125/83
[2023-04-27 03:53] LABS: BASOPHILS ABSOLUTE AUTO 0.05 K/mm3 (0.00-0.23); BASOPHILS PERCENT AUTO 1 % (0-2); EOSINOPHILS ABSOLUTE AUTO 0.03 K/mm3 (0.00-0.68); EOSINOPHILS PERCENT AUTO 1 % (0-6); Hematocrit 26.8 % (37.0-53.0); Hemoglobin 7.5 g/dL (13.5-17.5); IMMATURE GRAN ABSOLUTE AUTO 0.03 K/mm3 (0.00-0.10); IMMATURE GRAN PERCENT AUTO 1 % (0-1); LYMPHOCYTES ABSOLUTE AUTO 0.49 K/mm3 (0.84-5.20); LYMPHOCYTES PERCENT AUTO 14 % (21-46); MONOCYTES PERCENT AUTO 14 % (4-13); Mean Corpuscular HGB 24.6 pg (26.0-34.0); Mean Corpuscular Volume 88 fL (80-100); Mean Platelet Volume 10.5 fL (9.1-12.4); NEUTROPHILS ABSOLUTE AUTO 2.49 K/mm3 (1.96-9.15); NEUTROPHILS PERCENT AUTO 70 % (41-73); Platelet Count 131 K/mm3 (150-400); RDW Coefficient Variation 20.2 % (11.7-14.2); RDW Standard Deviation 64.8 fL (35.1-46.3); Red Blood Cell Count 3.05 M/mm3 (4.30-5.90); White Blood Cell Count 3.59 K/mm3 (4.00-11.30)
[2023-04-27 04:16] LABS: Albumin, Blood 1.6 g/dL (3.4-5.0); Albumin/Globulin Ratio 0.4 (0.8-1.8); Bilirubin, Total 4.2 mg/dL (0.1-1.0); Bun/Creatinine Ratio 13.4 (12.0-20.0); Calcium, Blood 7.5 mg/dL (8.5-10.1); Creatinine, Blood 0.6 mg/dL (0.60-1.20); Globulin, Blood 3.8 g/dL (2.2-4.0); Magnesium, Blood 1.6 mg/dL (1.6-2.4); Phosphorus, Blood 2.7 mg/dL (2.5-4.9); Potassium, Blood 3.4 mmol/L (3.5-5.5); Total Protein, Blood 5.4 g/dL (6.4-8.2)
--- NOTE | 2023-04-27 05:15 | NUR ---
END OF SHIFT NOTE: PT REMAINS ALERT, CONFUSED T/O SHIFT. SOME ATTEMPTS TO CLIMB OUT OF BED W/ AVASURE CAMERA ALARMING. PT REDIRECTABLE AND AGREEABLE TO REMAINING IN BED. VISUAL HALLUCINATIONS PRESENT T/O SHIFT. PT REPORTS SEEING "SNAKES IN THE CEILING" AND NEEDING TO "GET PIZZA FOR ALL THE GUESTS HERE" WHEN NO ONE IS PRESENT IN THE ROOM. HR 90-120'S, SINUS TACH ON TELE. BP STABLE, MAP >65. SPO2 >95% ON RA. AFEBRILE. NO C/O PAIN, HEADACHE, OR N/V. REPOSITIONED Q2HR T/O SHIFT. INCONTINENT VOIDS W/ TAMEKA COLORED URINE, ATTENDS CHANGED TO KEEP C/D/I. NO BM'S. WOUND DRESSINGS REMAIN C/D/I ON COCCYX. HEEL PROTECTORS IN PLACE PHOPHYLACTICALLY. PT CONTINUES TO TOLERATE MEDICATIONS CRUSHED IN APPLESAUCE. VERY MINIMAL PO INTAKE OTHERWISE. PT REMAINS ON BEDREST DUE TO PROFOUND WEAKNESS & AMS. NO OTHER EVENTS. CALL LIGHT WITHIN REACH, BED IN LOWEST POSITION. AVASURE CAMERA AND BED ALARM IN PLACE FOR PT SAFETY AND FALL PREVENTION. WILL REPORT TO ONCOMING RN.
[2023-04-27 07:40] VITALS: BP 114/77
[2023-04-27 16:15] VITALS: BP 116/80
--- NOTE | 2023-04-27 18:41 | NUR ---
PT SUMMARY: PT ALERT AND ORIENTED X3-4 VITALS HAS BEEN STABLE, PT STILL HAS SOME CONFUSION EPISODES PER PROVIDER PT'S MENTATION HAS IMPROVED COMPARED TO YESTERDAY, NO BENZOS GIVEN FOR THE SHIFT, PT HAS BEEN COOPERATIVE AND PLEASANT, BED ALARM AND AVASURE MONITORING REMAIN IN PLACE FOR PT'S SAFETY. PT WAS UP IN THE RECLINER ONCE FOR THE SHIFT FOR A COUPLE OF HRS PT TOLERATED WELL GOT BACK IN BED DUE TO COCCYX/SORE PAIN. PT HAD A BED BATH THIS MORNING HAD 3 INCONTINENT VOIDS FOR THE SHIFT URINE DARK YELLOW IN COLOR. PT ALSO APPEARS JAUNDICED PROVIDER IS AWARE. PT IS VERY WEAK HAS BAD TREMORS WHEN GETTING UP TO TRANSFER, HEAVY 2 PERSON MAX ASSIST FOR TRANSFERS VIA GAIT BELT AND WALKER. COCCYX DRESSINGS REMOVED SORE LEFT OPEN TO AIR DUE TO PT'S INCONTINENCE DRESSINGS GETS SOILED OFTEN, BARRIER CREAM APPLIED. PT REMAINS ON PUREE DIET AND NECTAR THICK FLUIDS, PT ABLE TO FEED HIMSELF NOW NEEDING SUPERVISION. FAMILY HAS BEEN AT THE BEDSIDE ALMOST ALL SHIFT WITH THE PT. NO OTHER ISSUES REPORTED. PT IN BED RESTING CALL LIGHTS IN REACH WILL REPORT TO ONCOMING SHIFT
[2023-04-27 20:00] VITALS: BP 125/81
[2023-04-28 04:00] VITALS: BP 105/78
[2023-04-28 04:02] LABS: BASOPHILS ABSOLUTE AUTO 0.04 K/mm3 (0.00-0.23); BASOPHILS PERCENT AUTO 1 % (0-2); EOSINOPHILS ABSOLUTE AUTO 0.02 K/mm3 (0.00-0.68); EOSINOPHILS PERCENT AUTO 1 % (0-6); Hematocrit 26.5 % (37.0-53.0); Hemoglobin 7.3 g/dL (13.5-17.5); IMMATURE GRAN ABSOLUTE AUTO 0.02 K/mm3 (0.00-0.10); IMMATURE GRAN PERCENT AUTO 1 % (0-1); LYMPHOCYTES ABSOLUTE AUTO 0.47 K/mm3 (0.84-5.20); LYMPHOCYTES PERCENT AUTO 14 % (21-46); MONOCYTES ABSOLUTE AUTO 0.55 K/mm3 (0.16-1.47); MONOCYTES PERCENT AUTO 16 % (4-13); Mean Corpuscular HGB 24.3 pg (26.0-34.0); Mean Corpuscular HGB Conc 27.5 g/dL (31.5-36.5); Mean Corpuscular Volume 88 fL (80-100); Mean Platelet Volume 10.1 fL (9.1-12.4); NEUTROPHILS ABSOLUTE AUTO 2.25 K/mm3 (1.96-9.15); NEUTROPHILS PERCENT AUTO 67 % (41-73); Platelet Count 140 K/mm3 (150-400); RDW Coefficient Variation 20.3 % (11.7-14.2); RDW Standard Deviation 65.4 fL (35.1-46.3); White Blood Cell Count 3.35 K/mm3 (4.00-11.30)
[2023-04-28 04:22] LABS: Albumin, Blood 1.6 g/dL (3.4-5.0); Albumin/Globulin Ratio 0.4 (0.8-1.8); Bilirubin, Total 3.9 mg/dL (0.1-1.0); Bun/Creatinine Ratio 13.8 (12.0-20.0); Calcium, Blood 7.8 mg/dL (8.5-10.1); Creatinine, Blood 0.58 mg/dL (0.60-1.20); Globulin, Blood 3.8 g/dL (2.2-4.0); Potassium, Blood 3.6 mmol/L (3.5-5.5); Total Protein, Blood 5.4 g/dL (6.4-8.2)
--- NOTE | 2023-04-28 05:45 | NUR ---
SHIFT SUMMARY PT A&O X2-3; CONTINUES TO HAVE SOME CONFUSION. PT STATING OR ASKING ODD/INCOHERENT QUESTIONS OR STATEMENTS SUCH "IS WOODY IN THE CHAIR", "IS THAT BLANKET MOVING?" OR "WHO IS STANDING RIGHT THERE". PT OFTEN FORGETTING THAT HE IS IN THE HOSPITAL. PT REDIRECTABLE AND ABLE TO BE REORIENTED, PT THEN ABLE TO RECALL INFORMATION BUT QUICKY FORGETS OR SIMILIR EVENTS ABOVE. VSS T/O SHIFT; REMAINS ON RA, SBP 100 - 120'S, HRR SINUS RHYTHM/SINUS TACH 90 - 100'S. PT AFEBRILE DURING SHIFT. REMAINS CP/PRESSURE FREE, NO SOB NOTED. PT DENIES CP/PRESSRUE, SOB. PT HAD 1 SMALL, FORMED BM THAT WAS LIGHT BROWN IN COLOR WITH SCANT BRIGHT, RED BLOOD NOTED. PT VOID X1 THIS SHIFT; UNMEASURED D/T LEAKING FROM URINAL. PT CONTINUES TO HAVE RASH ON CHEEKS AND FOREHEAD, WELL SCATTERED T/O BODY. NO ACUTE CHANGES WITH PT THIS SHIFT. CALL LIGHT IN REACH AND BED IN LOW POSITION, BED ALARM AND CAMERA IN PLACE. PT DID NOT TRY TO GET OUT OF BED THIS SHIFT, AND SEEMS TO BE FOLLOWING AND UNDERSTANDING COMMANDS WELL. WILL INEZTE JOSE ALEJANDRO STARK
[2023-04-28 08:09] VITALS: BP 112/71
--- NOTE | 2023-04-28 13:38 | NUR ---
PT ALERT AND ORIENTED X 2-3 HE OFTEN DOESN'T KNOW WHAT TOWN HE IS IN AND HAS ESPISODES OF CONFUSION. AVASURE MONITORING WAS IN PLACE AT BEGINNING OF SHIFT & AND IT WAS D/C'S AROUND 0830 AND PT HAS NOT ATTEMPTED TO GET OUT OF BED ON HIS OWN. HIS PARENTS HAVE BEEN IN THE ROOM WITH HIM THE MAJORITY OF THE DAY. BED ALARM IS ON FOR PT'S SAFETY. PT HAS BEEN COOPERATIVE WITH CARE THIS SHIFT. HE IS ON RA AND MAINTAINING 02 SATURATION ABOVE 92%, PT DENIES SOB. PT DENIES CHEST PAIN AND PAIN OF ANY KIND. PT HAS BRIEF ON FOR INCONTINENT EPISODES. HE KNEW HE NEEDED TO URINATE EARLIER IN SHIFT AND USED URINAL WITH ASSISTANCE. URINE IS TEA COLORED. NO BOWEL MOVEMENT THIS SHIFT. PTS SKIN IS JAUNDICE AND HAS RASH SCATTERED THROUGHOUT. BLE PITTING EDEMA, R LOWER LEG SLIGHTLY MORE SWOLLEN THAN LEFT. SWOLLEN PENIS & BLANCHABLE REDNESS TO COCCYX, BARRIER CREAM AND ATTENDS CHANGED PRN. REPOSITIONED Q 2 HOURS. PT WAS UP TO CHAIR WITH 2 PERSON ASSIST, GAIT BELT, AND WALKER. PT WAS VERY SHAKY AND WEAK DURING TRANSFER, BUT HE WAS SUCCESSFUL IN GETTING FROM BED TO CHAIR. CHAIR ALARM SET FOR PT'S SAFETY. PT TRANSFERRED TO MEDICAL FLOOR AT APPROXIMATELY 1445 WITH ALL OF HIS BELONGINGS AND CHART. REPORT WAS GIVEN TO MEDICAL FLOOR NURSE. PT WAS STABLE UPON TRANSFER.
[2023-04-28 15:06] VITALS: BP 93/59
--- NOTE | 2023-04-28 16:03 | NUR ---
PT ARRIVED TO THE MEDICAL FLOOR FROM THE U A/OX3, VIA RECLINER CHAIR. ACCOMPANIED BY HIS FAMILY, THE PT IS A 2 PERSON MAX ASSIST TO STAND AND PIVOT TO THE BED FROM THE CHAIR. THE PT DENIED ANY PAIN AT TIS TIME. THE PT WAS ORIENTED TO THE CALL SYSTEM. BED ALARM ON. BED IN THE LOW POSITION. PT WORKED WITH THE OCCUPATIONAL AND PHYSICAL THERAPIST TODAY. CALL LIGHT IN REACH
[2023-04-28 19:53] VITALS: BP 107/69
[2023-04-29 02:14] VITALS: BP 140/78
--- NOTE | 2023-04-29 04:24 | NUR ---
SHIFT SUMMARY PT A&O TO SELF, BUT VARIES IN MENTATION BETWEEN BEING ORIENTED TO PLACE AND SITUATION AND CONFUSED. PT ATTEMPTED TO EXIT BED FREQUENTLY DURING SHIFT. REDIRECTION/REORIENTATION UNSUCCESSFUL. PHYSICIAN CALLED AND TEMAZEPAM ORDERED AND GIVEN AT 2345 TO ASSIST WITH RESTLESSNESS AND ANXIETY. PT WAS AWAKE THROUGHOUT MOST OF SHIFT AND VERBALIZED CONCERN WITH "SOCIALIZING ONCE I GET OUT" DUE TO HIS INABILITY TO AMBULATE. THERAPEUTIC COMMUNICATION UTELIZED. PT WAS INCONTINENT AND PRODUCED A SMALL BM. NO ACUTE EVENTS OCCURED DURING MY SHIFT. VSS. PT LEFT IN A POSITION OF SAFETY WITH APPROPRIATE FALL PRECAUTIONS IN PLACE AND CALL LIGHT WITHIN REACH.
[2023-04-29 06:13] LABS: BASOPHILS ABSOLUTE AUTO 0.07 K/mm3 (0.00-0.23); BASOPHILS PERCENT AUTO 2 % (0-2); EOSINOPHILS ABSOLUTE AUTO 0.04 K/mm3 (0.00-0.68); EOSINOPHILS PERCENT AUTO 1 % (0-6); Hematocrit 30.2 % (37.0-53.0); Hemoglobin 8.3 g/dL (13.5-17.5); IMMATURE GRAN ABSOLUTE AUTO 0.03 K/mm3 (0.00-0.10); IMMATURE GRAN PERCENT AUTO 1 % (0-1); LYMPHOCYTES ABSOLUTE AUTO 0.71 K/mm3 (0.84-5.20); LYMPHOCYTES PERCENT AUTO 19 % (21-46); MONOCYTES ABSOLUTE AUTO 0.57 K/mm3 (0.16-1.47); MONOCYTES PERCENT AUTO 15 % (4-13); Mean Corpuscular HGB 24.4 pg (26.0-34.0); Mean Corpuscular HGB Conc 27.5 g/dL (31.5-36.5); Mean Corpuscular Volume 89 fL (80-100); Mean Platelet Volume 10.7 fL (9.1-12.4); NEUTROPHILS ABSOLUTE AUTO 2.28 K/mm3 (1.96-9.15); NEUTROPHILS PERCENT AUTO 62 % (41-73); Platelet Count 189 K/mm3 (150-400); RDW Coefficient Variation 20.2 % (11.7-14.2)
[2023-04-29 07:28] LABS: Albumin, Blood 1.8 g/dL (3.4-5.0); Albumin/Globulin Ratio 0.4 (0.8-1.8); Bun/Creatinine Ratio 13.1 (12.0-20.0); Calcium, Blood 7.9 mg/dL (8.5-10.1); Creatinine, Blood 0.61 mg/dL (0.60-1.20); Globulin, Blood 4.2 g/dL (2.2-4.0); Potassium, Blood 3.6 mmol/L (3.5-5.5)
[2023-04-29 07:49] LABS: Bilirubin, Total 3.9 mg/dL (0.1-1.0)
[2023-04-29 07:50] VITALS: BP 102/69
[2023-04-29 16:36] VITALS: BP 101/67
--- NOTE | 2023-04-29 17:38 | NUR ---
PT IS ALERT, ORIENTED TO SELF AND HIS FAMILY. THE PT HAD VISUAL HALUCINATIONS THIS AM, SEEMED TO RESOLVE THIS AFTERNOON. THE PT APPEARS TO BE BREATHING EASILY ON RA AT REST. THE PT WAS UP IN THE CHAIR FOR LUNCH TODAY HE IS A 2 PERSON MAX ASSIST UP FROM THE CHAIR TO THE BED. MEPILEX APPLIED TO B COCCYX AND BARRIER CREAM APPLIED TO THE BUTTOCKS. THE PTS FAMILY WAS AT THE BEDSIDE FOR MOST OF THE DAY. CALL LIGHT IN REACH. BED IN THE LOW POSITION.
[2023-04-29 19:12] VITALS: BP 90/63
[2023-04-29 20:31] VITALS: BP 113/72
--- NOTE | 2023-04-30 04:12 | NUR ---
SHIFT SUMMARY PT A/O X2-3. EXPERIENCES CONFUSION AT TIMES EVIDENCED BY SPEAKING TO PEOPLE NOT REALLY THERE. PT INCONTINENT, ATTENDS CHANGED PRN. PT TOLERATING PURREED DIET, NEEDS ASSISTANCE WHEN EATING OR DRINKING. PT ABLE TO MAKE NEEDS KNOWN AND CALLS APPROPRIATELY. BED KEPT IN LOWEST POSIITON WITH CALL LIGHT WITHIN REACH. WILL CONTNUE TO MONITOR.
[2023-04-30 04:45] VITALS: BP 119/79
[2023-04-30 07:33] VITALS: BP 129/88
[2023-04-30 17:18] VITALS: BP 108/70
--- NOTE | 2023-04-30 17:50 | NUR ---
SHIFT SUMMARY- PT IS ALERT, PLESANT AND COOPERATIVE. HE IS EATING AND DRINKING WELL. WENT FOR MODIFIED BARIUM THIS AFTERNOON. HE WORKED WITH PT AND OT THIS SHIFT. WAS UP TO THE CHAIR FOR DINNER WITH THE LIFT. PARENTS WERE AT BEDSIDE THIS SHIFT. HIS CALL LIGHT IS WITIN REACH.
[2023-04-30 20:19] VITALS: BP 104/65
--- NOTE | 2023-05-01 03:43 | NUR ---
SHIFT SUMMARY PT IS ALERT, CONFUSED AND EXPERIENCING VISUAL HALLUCINATIONS. TALKING TO PEOPLE AND SEEING THINGS NOT IN THE ROOM. PT INCONTINENT OF BOWEL/BLADDER THIS SHIFT. ATTENDS CHANGED NEEDED. LIFT PATIENT. BED IN LOWEST POSITION WITH CALL LIGHT WITHIN REACH. WILL CONTINUE TO MONITOR UNTIL END OF SHIFT.
[2023-05-01 03:44] VITALS: BP 113/84
[2023-05-01 14:20] VITALS: BP 94/60
--- NOTE | 2023-05-01 16:25 | NUR ---
SHIFT SUMMARY MR HARRIS REMAINS CONFUSED TODAY. MUMBLING CONVERSATION WHICH CAN BE DIFFICULT TO UNDERSTAND. SUPPORTIVE PARENTS AT BEDSIDE MOST OF THE DAY. UP TO THE RECLINER WITH THE [employer] LIFT, HE WAS ENCOURAGED TO DO ARM AND LEG EXERCISES. HE WAS ENCOURAGED TO PARTICIPATE IN HIS CARE. HE NEEDS A FAIR AMOUNT OF PROMPTING AND EDUCATION TO PARTICIPATE IN HIS OWN CARE. HE STOOD UP WITH P.T. AND C/O DIZZYNESS. MANUAL BLOOD PRESSURE WHEN HE WAS BACK IN THE RECLINER WAS 94/60. ABDOMINAL SWELLING, BLE EDEMA. PO FLUIDS ENCOURAGED BUT POOR INTAKE. HE ATE SMALL LUNCH AND MAGIC CUP AND C/O FEELING ABSOLUTELY FULL. HE VOIDED ONCE THIS SHIFT TO THE URINAL. NO BM. BED AND CHAIR ALARMS IN USE. BED LOW, CALL LIGHT IN REACH.
[2023-05-01 17:25] VITALS: BP 108/72
--- NOTE | 2023-05-01 18:12 | NUR ---
RN UPDATE 400CC UOP THIS SHIFT. INCREASING PITTING EDEMA UP TO HIS HIPS.
[2023-05-01 19:38] VITALS: BP 96/66
[2023-05-02 01:58] VITALS: BP 92/64
--- NOTE | 2023-05-02 06:24 | NUR ---
SHIFT SUMMARY: PT IS ADMITTED FOR SEPSIS AND IS A FULL CODE. IS ALERT AND ABLE TO MAKE SOME NEEDS KNOWN. ADLs HAVE BEEN 2P MAX THROUGH SHIFT WHILE IN BED WITH LIFT TRANSFERS FROM CHAIR TO BED. DENIES PAIN OR DISCOMFORT WHEN ASKED. SOME FLEM BUILD UP NOTED OFF AND ON THROUGH SHIFT BUT WAS ABLE TO CLEAR WITHOUT ASSISTANCE.
[2023-05-02 07:40] VITALS: BP 115/81
--- NOTE | 2023-05-02 15:05 | NUR ---
SHIFT SUMMARY MR HARRIS IS MORE TALKATIVE TODAY, HE REMAINS CONFUSED, BUT ABLE TO HAVE MORE COHERANT CONVERSATIONS, VOICE IS CLEARER AND EASIER TO UNDERSTAND. HE STILL GETS CONFUSED ABOUT WHERE HE IS AND WHAT HE'S DOING HERE BUT CAN BE REORIENTATED EACH TIME. HE IS MORE ACTIVE TODAY, MOVING HIS LIMBS AND PARTICIPATING IN HIS CARE A LITTLE MORE THAN YESTERDAY. HE IS ABLE TO LIFT THE CUP TO HIS MOUTH AND DRINK BY HIMSELF AND FEED HIMSELF UNDER OBSERVATION. HE STILL HAS A POOR APPETITE AND FEELS FULL QUICKLY. EDEMA PITTING TO BLE, THIGHS AND HIPS - INCONTINENT OF URINE HEAVILY AFTER PO LASIX AND FREQUENT EPISODES OF INCONTINENCE OF SOFT STOOL. HIS BUTTOCKS ARE RED AND SKIN IS FRIABLE AND SLIGHTLY BLOODY. UP TO CHAIR FOR MEALS AND SHORT DURATIONS THEN BACK TO BED AND KEPT OFF HIS BUTTOCKS. ZINC CREAM APPLIED TO FRIABLE SKIN. BED LOW, CALL LIGHT IN REACH. BED AND CHAIR ALARMS USED.
[2023-05-02 16:34] VITALS: BP 93/60
[2023-05-02 19:30] VITALS: BP 98/62
[2023-05-03 03:50] VITALS: BP 110/82
--- NOTE | 2023-05-03 05:37 | NUR ---
SHIFT SUMMARY: PT IS ADMITTED FOR SEPSIS AND IS A FULL CODE. IS ALERT AND ABLE TO MAKE MOST NEEDS KNOWN. ADLs HAVE BEEN MOSTLY 2P MOD-MAX WHILE IN BED. DENIES PAIN OR DISCOMFORT. IV TO RIGHT AC IS PATENT WITH A DRESSING THAT IS CDI.
[2023-05-03 07:17] LABS: Bun/Creatinine Ratio 15.5 (12.0-20.0); Calcium, Blood 7.9 mg/dL (8.5-10.1); Creatinine, Blood 0.65 mg/dL (0.60-1.20); Potassium, Blood 3.3 mmol/L (3.5-5.5)
[2023-05-03 08:17] VITALS: BP 131/70
[2023-05-03 10:53] VITALS: BP 118/76
--- NOTE | 2023-05-03 11:06 | NUR ---
PATIENT STARTED COUGHING WITH BREAKFAST SO IT WAS TAKEN AWAY. PATIENT SWALOWED HIM CRUSHED MEDS WITH APPLESAUCE FINE. IV LASIX ADMINISTERED OVER 2 MINUTES. PATIENT WAS EAGER TO GET BACK TO BED SO STAFF TRANSFERED HIM BACK TO BED VIA LIFT. ONCE IN BED PATIENT STARTED COUGHING AGAIN AND SPIITING UP SOME CLEAR SPUTUM, SUCTION WAS ALSO UTILIZED. PATIENT WAS SAT UP IN BED TO HELP WITH COUGHING. HIS EYES ARE CLOSED AND ABLE TO REST BETWEEN COUGHING FITS. THE PATIENT'S PARENTS ARE AT THE BEDSIDE. VITALS WERE TAKEN WHILE THE PATIENT WAS IN BED, AFTER HIS LASIX WAS ADMINISTERED. WILL CONTINUE TO MONITOR
[2023-05-03 14:11] VITALS: BP 100/62
[2023-05-03 14:56] VITALS: BP 95/66
--- NOTE | 2023-05-03 17:19 | NUR ---
THE PATIENT IS ALERT AN ORIENTED TO SELF, FOLLOWING DIRECTIONS AND HIS FAMILY. HE WAS UNABLE TO TELL THE RN WHERE HE IS. THE PATIENT WAS COUGHING WHILE EATING/DRINKING DURING BREAKFAST AND LUNCH. THIS RN SPOON FED HIM PO FLUIDS THIS AFTERNOON WITH SOME SUCESS. THE PATIENT'S MOTHER REPORTS HIS URINE IS DARKER TODAY THAN BEFORE. DIURETICS WERE STARTED TODAY, PO LASIX AND ALDACTONE WERE HELD THIS AFTERNOON ACCORDING TO THE PARAMETERS GIVEN BY DR. SAM. PATIENT DOES HAVE EDEMA RANGING FROM HIS BACK DOWN TO HIS FEET. CHEST XRAY WAS COMPLETED THIS MORNING. THE PATIENTS PARENTS SPOKE WITH DR. SAM THIS AFTERNOON AND ARE EAGER TO SPEAK WITH CARE MANAGEMENT SOON REGARDING HIS DISCHARGE TO A FACILITY. PATIENT IS ON RA. WILL CONTINUE TO MONITOR
[2023-05-03 21:12] VITALS: BP 117/82
--- NOTE | 2023-05-03 21:50 | NUR ---
2145: CALL TO DR. WINSTON. PT HAS PULLED OUT HIS PIV. ORDERS RECEIVED THAT IT IS OK TO LEAVE HIS IV OUT.
[2023-05-04 02:42] VITALS: BP 128/86
--- NOTE | 2023-05-04 04:12 | NUR ---
1900: ASSUMED CARE OF PT, REPORT RECEIVED FROM DAY SHIFT RN. PT SITTING UP IN BED WITH HOB ELEVATED. A/O TO SELF AND PLACE. NEEDS FREQUENT REORIENTATION. CONCERNED ABOUT WHAT HIS PLAN IS FROM HERE. HALLUCINATIONS OFF/ON. QUESTIONS WHY HE NEEDS POLICE ESCORT. WANTS TO KNOW WHY SO MANY PEOPLE ARE STANDING IN HIS ROOM WHEN NO ONE IS THERE. SLEPT MINIMALLY DURING THE NIGHT. INCONTINENT OF STOOL AND URINE MULPTIPLE TIMES DURING THE NIGHT. DECLINES TO WEAR ANYTHING OTHER THAN HIS BRIEF. SEE EMR FOR ROS AND MEDICATION ADMINISTRATION. PT PULLED HIS PIV OUT AT THE START OF SHIFT, NOT FOUND. PT STATES THAT SOMEONE ELSE THREW IT AWAY FOR HIM. NO S/S OF INFECTION AT THE INSERTION SITE. BED ALARM USED, CALL LIGHT WITHIN REACH, PT DOES NOT USE THE CALL LIGHT HOWEVER. NURSE SITTING NEAR PT DOOR FOR SAFETY. FREQUENT ROUNDING.
[2023-05-04 06:04] LABS: BASOPHILS ABSOLUTE AUTO 0.06 K/mm3 (0.00-0.23); BASOPHILS PERCENT AUTO 1 % (0-2); EOSINOPHILS ABSOLUTE AUTO 0.04 K/mm3 (0.00-0.68); EOSINOPHILS PERCENT AUTO 1 % (0-6); Hematocrit 25.3 % (37.0-53.0); Hemoglobin 7.1 g/dL (13.5-17.5); IMMATURE GRAN ABSOLUTE AUTO 0.02 K/mm3 (0.00-0.10); IMMATURE GRAN PERCENT AUTO 0 % (0-1); LYMPHOCYTES ABSOLUTE AUTO 0.73 K/mm3 (0.84-5.20); LYMPHOCYTES PERCENT AUTO 16 % (21-46); MONOCYTES ABSOLUTE AUTO 0.68 K/mm3 (0.16-1.47); MONOCYTES PERCENT AUTO 15 % (4-13); Mean Corpuscular HGB Conc 28.1 g/dL (31.5-36.5); Mean Corpuscular Volume 86 fL (80-100); Mean Platelet Volume 10.7 fL (9.1-12.4); NEUTROPHILS ABSOLUTE AUTO 3.04 K/mm3 (1.96-9.15); NEUTROPHILS PERCENT AUTO 67 % (41-73); Platelet Count 194 K/mm3 (150-400); RDW Coefficient Variation 19.1 % (11.7-14.2); RDW Standard Deviation 59.7 fL (35.1-46.3); Red Blood Cell Count 2.96 M/mm3 (4.30-5.90); White Blood Cell Count 4.57 K/mm3 (4.00-11.30)
[2023-05-04 06:26] LABS: Bun/Creatinine Ratio 17.1 (12.0-20.0); Calcium, Blood 7.8 mg/dL (8.5-10.1); Creatinine, Blood 0.64 mg/dL (0.60-1.20); Magnesium, Blood 1.9 mg/dL (1.6-2.4); Potassium, Blood 3.2 mmol/L (3.5-5.5)
[2023-05-04 07:42] VITALS: BP 129/75
--- NOTE | 2023-05-04 09:00 | NUR ---
pt pleasant very soft spoken. denies pain this time. a/o x3, slow to respond, hard to understand. not correct on president, thought it was ariel. eyes noticably yellow. h/r reg, murmur noted. no tele. edema ble 3+ pitting. waist down is 2+. lungs clear, resp easy, unlabored. on r.a. b/t x4 last b/m today. voids attends. states too weak to walk. presently is a lift patient. sometimes gets confused. bed in low position. call lite in reach, bed alarm on for safety
[2023-05-04 10:46] LABS: Hematocrit 28.9 % (37.0-53.0); Hemoglobin 8.1 g/dL (13.5-17.5)
[2023-05-04 15:19] VITALS: BP 106/75
--- NOTE | 2023-05-04 18:10 | NUR ---
pt pleasant today. more awake and alert t/o day. parents into visit today. up in chair today with lift. edema persists. vss. no new concerns noted. trying to get moving with p/t today. talking better this afternoon also. bed in low positioin, call lite in reach, bed alarm on for safety
[2023-05-04 19:51] VITALS: BP 100/62
--- NOTE | 2023-05-04 20:57 | NUR ---
RREPORT RECEIVED VERIFIED A/O X 2-3 SOFT SPOKEN ASKED TO BE LIFTED BACK TO BED. LIFT USED ARELI WELL ASSESSMENT DONE VSS, PT HAS NO C/O PAIN SHOWS NO DISTRESS FELL RIGHT ASLEEP WHEN PLACED IN BED.
[2023-05-05 04:21] VITALS: BP 105/82
[2023-05-05 05:50] LABS: BASOPHILS ABSOLUTE AUTO 0.05 K/mm3 (0.00-0.23); BASOPHILS PERCENT AUTO 1 % (0-2); EOSINOPHILS ABSOLUTE AUTO 0.06 K/mm3 (0.00-0.68); EOSINOPHILS PERCENT AUTO 2 % (0-6); Hematocrit 26.4 % (37.0-53.0); Hemoglobin 7.3 g/dL (13.5-17.5); IMMATURE GRAN ABSOLUTE AUTO 0.01 K/mm3 (0.00-0.10); IMMATURE GRAN PERCENT AUTO 0 % (0-1); LYMPHOCYTES ABSOLUTE AUTO 0.87 K/mm3 (0.84-5.20); LYMPHOCYTES PERCENT AUTO 24 % (21-46); MONOCYTES ABSOLUTE AUTO 0.52 K/mm3 (0.16-1.47); MONOCYTES PERCENT AUTO 14 % (4-13); Mean Corpuscular HGB 23.8 pg (26.0-34.0); Mean Corpuscular HGB Conc 27.7 g/dL (31.5-36.5); Mean Corpuscular Volume 86 fL (80-100); Mean Platelet Volume 10.6 fL (9.1-12.4); NEUTROPHILS ABSOLUTE AUTO 2.16 K/mm3 (1.96-9.15); NEUTROPHILS PERCENT AUTO 59 % (41-73); Platelet Count 192 K/mm3 (150-400); RDW Standard Deviation 59.4 fL (35.1-46.3); Red Blood Cell Count 3.07 M/mm3 (4.30-5.90); White Blood Cell Count 3.67 K/mm3 (4.00-11.30)
[2023-05-05 06:10] LABS: Bun/Creatinine Ratio 18.2 (12.0-20.0); Creatinine, Blood 0.66 mg/dL (0.60-1.20); Potassium, Blood 3.6 mmol/L (3.5-5.5)
[2023-05-05 07:49] VITALS: BP 101/81
[2023-05-05 15:59] VITALS: BP 125/75
--- NOTE | 2023-05-05 16:28 | NUR ---
NO ACUTE CHANGES AT THIS TIME. PT AOX2 AND COOPERATIVE OF CARE. PT CAN MAKE SOME NEEDS KNOWN. PT CONTINUES TO HAVE A VERY WEAK COUGH AND WILL TRY TO COUGH HARDER WHEN CUED. SUCTIONING DID NOT SEEM TO GET MUCH OUT. PT IS INCONTINENT AND NEEDS TURNED Q2 HRS HE CAN'T CHANGE POSTION. BED ALARM IS IN PLACE AND LIFT IS NEEDED FOR SAFE TRANSFER.
[2023-05-05 19:31] VITALS: BP 148/132
[2023-05-05 23:45] VITALS: BP 107/69
[2023-05-06 04:10] VITALS: BP 104/67
--- NOTE | 2023-05-06 04:24 | NUR ---
SHIFT SUMMARY: TRELL IS A&OX1-2. VSS, DIASTOLIC BP ELEVATED BEGINNING OF SHIFT BUT RESOLVED AFTER PT WAS RESTING IN BED. PT IS TOLERATING PO INTAKE WELL, BUT STATES THAT HE FEELS THAT THE THICKENED LIQUIDS DO NOT QUENCH HIS THIRST. ATTENDS IN PLACE, PT HAS BEEN ABLE TO USE THE URINAL WITH ASSISTANCE THIS SHIFT. THE CEILING LIFT WAS USED TO ASSIST PT BACK TO BED FROM THE RECLINER. HE IS LYING IN BED WITH THE CALL LIGHT IN REACH. WILL REPORT TO ONCOMING SHIFT.
[2023-05-06 05:30] LABS: BASOPHILS ABSOLUTE AUTO 0.06 K/mm3 (0.00-0.23); BASOPHILS PERCENT AUTO 1 % (0-2); EOSINOPHILS ABSOLUTE AUTO 0.06 K/mm3 (0.00-0.68); EOSINOPHILS PERCENT AUTO 1 % (0-6); Hematocrit 28.3 % (37.0-53.0); Hemoglobin 7.8 g/dL (13.5-17.5); IMMATURE GRAN ABSOLUTE AUTO 0.02 K/mm3 (0.00-0.10); IMMATURE GRAN PERCENT AUTO 1 % (0-1); LYMPHOCYTES ABSOLUTE AUTO 0.82 K/mm3 (0.84-5.20); LYMPHOCYTES PERCENT AUTO 19 % (21-46); MONOCYTES ABSOLUTE AUTO 0.62 K/mm3 (0.16-1.47); MONOCYTES PERCENT AUTO 14 % (4-13); Mean Corpuscular HGB 23.7 pg (26.0-34.0); Mean Corpuscular HGB Conc 27.6 g/dL (31.5-36.5); Mean Corpuscular Volume 86 fL (80-100); Mean Platelet Volume 10.1 fL (9.1-12.4); NEUTROPHILS ABSOLUTE AUTO 2.85 K/mm3 (1.96-9.15); NEUTROPHILS PERCENT AUTO 64 % (41-73); Platelet Count 205 K/mm3 (150-400); RDW Coefficient Variation 18.7 % (11.7-14.2); RDW Standard Deviation 59.1 fL (35.1-46.3); Red Blood Cell Count 3.29 M/mm3 (4.30-5.90); White Blood Cell Count 4.43 K/mm3 (4.00-11.30)
[2023-05-06 05:57] LABS: Albumin, Blood 1.9 g/dL (3.4-5.0); Albumin/Globulin Ratio 0.4 (0.8-1.8); Bilirubin, Total 2.8 mg/dL (0.1-1.0); Bun/Creatinine Ratio 21.1 (12.0-20.0); Calcium, Blood 8.3 mg/dL (8.5-10.1); Creatinine, Blood 0.66 mg/dL (0.60-1.20); Globulin, Blood 4.5 g/dL (2.2-4.0); Potassium, Blood 3.7 mmol/L (3.5-5.5); Total Protein, Blood 6.4 g/dL (6.4-8.2)
[2023-05-06 08:07] VITALS: BP 125/80
[2023-05-06 15:01] VITALS: BP 95/64
--- NOTE | 2023-05-06 16:06 | NUR ---
PT AOX3 AND COOPERATIVE OF CARE. PT DOING WELL TODAY AND PARTICIPATED WELL WITH ALL CARE TODAY. PT WAS ABLE TO BE TRANSFERED WITH A SIT TO STAND AND WORKED WITH OT WELL. PT HAD PARENTS IN ROOM ALL DAY AND HELP TO ENCOURAGE HIM. PT WAS NOT COUGHING MUCH TODAY. PT HAS BEEN ABLE TO VERBALIZED NEEDS. PT WAS ABLE TO BE HELPED TO STANDING, BUT IS TO WEAK TO DO THIS FOR VERY LONG AND NEEDS TO PEOPLE TO ASSIST. BED ALARM AND CHAIR ALARM ARE IN PLACE PT CAN BE IMPULSIVE WHEN ALONE. CALL LIGHT IS ENCOURAGED. WILL CONTINUE TO MONITOR.
[2023-05-06 19:16] VITALS: BP 93/69
[2023-05-07 02:03] VITALS: BP 136/83
--- NOTE | 2023-05-07 04:43 | NUR ---
SHIFT SUMMARY: TRELL IS A&OX1-2. VSS, NO ACUTE EVENTS THIS SHIFT. ATTENDS IN PLACE, PT ABLE TO USE THE URINAL WITH ASSISTANCE, MIXED CONTINENT/INCONTINENT. [id number] LIFT TO BEDSIDE RECLINER AND BACK. HE IS TOLERATING PO INTAKE WELL, ASPIRATION PRECAUTIONS IN PLACE. HE IS LYING IN BED WITH THE CALL LIGHT IN REACH. WILL REPORT TO ONCOMING RN.
[2023-05-07 07:08] VITALS: BP 105/69
[2023-05-07 16:26] VITALS: BP 116/76
--- NOTE | 2023-05-07 16:56 | NUR ---
SHIFT SUMMARY: NO ACUTE EVENTS. DENIED PAIN. A&O TO SELF AND FAMILY, FORGETS WHERE HE IS. HAS 3+ PITTING EDEMA IN BLE FROM FEET TO MID-THIGH. HAS BEEN IN RECLINER WITH FEET ELEVATED MOST OF THE DAY; WOULD LIKELY BENEFIT FROM [facility]. CBG AT START OF SHIFT WAS 65; GAVE NECTAR-THICK APPLE JUICE AND BREAKFAST WAS DELIVERED SHORTLY AFTER. WEARING ATTENDS. USING [id number] LIFT TO TRANSFER FROM BED TO CHAIR.
[2023-05-07 19:49] VITALS: BP 101/65
[2023-05-08 03:00] VITALS: BP 138/86
--- NOTE | 2023-05-08 05:03 | NUR ---
SHIFT SUMMARY: TRELL IS A&OX2. VSS, NO ACUTE EVENTS THIS SHIFT. ATTENDS IN PLACE FOR MIXED INCONTINENCE, PT DID HAVE A BOWEL MOVEMENT THIS SHIFT. PT REFUSED TO LEAVE SCDs IN PLACE, [facility] MAY PROVIDE BETTER BENEFIT. HE IS TOLERATING PO INTAKE WELL, ASPIRATION PRECAUTIONS IN PLACE. SPEECH MUMBLED, ABLE TO REORIENT TO PLACE OCCASIONALLY. [id number]-[id number] USED FOR TRANSFERS. HE IS SITTING UP IN THE BEDSIDE RECLINER WITH THE CALL LIGHT IN REACH. WILL REPORT TO ONCOMING RN.
[2023-05-08 07:12] VITALS: BP 101/79
[2023-05-08 15:55] VITALS: BP 110/67
--- NOTE | 2023-05-08 18:12 | NUR ---
SHIFT SUMMARY A&O X 1. CONFUSED, VSS. HAS BEEN UP IN RECLINER CHAIR MAJORITY OF THE SHIFT. SIT TO STAND LIFT USED TO MOVE PT FROM BED TO RECLINER BACK TO BED. PLAN IS FOR PLACEMENT HOWEVER HE HAS BEEN DENIED TO FACILITIES, HE MAY BE DC'D TO CARE OF PARENTS W/HH, CAREGIVERS & EQUIPMENT. HAS NO IV, BED & CHAIR ALARM HAVE BEEN ON THIS SHIFT. IS INCONTINENT OF URINE & STOOL. IS PLEASANT & COOPERATIVE WITH MUCH ENCOURAGMENT & REDIRECTION FOR SIMPLE TASKS. CALL LIGHT WITHIN REACH, BED IN LOW POSITION.
[2023-05-08 21:02] VITALS: BP 147/86
[2023-05-09 02:32] VITALS: BP 110/77
--- NOTE | 2023-05-09 04:24 | NUR ---
SHIFT SUMMARY PATIENT HAD NO ACUTE CHANGES. AXO X 1 WITH CONFUSION AND MUMBLED SPEECH. SIT TO STAND LIFT. INCONTINENT OF BOWEL AND BLADDER. MULTIPLE OOB ATTEMPTS ACTIVATING ALARM. REDIRECTED BACK TO BED. TAKES MEDICATION CRUSHED IN APPLESAUCE. MELATONIN 5 MG ORDERED FOR INSOMNIA BY HOSPITALIST DR COLLIER. NO IV ACCESS. DENIES CHEST PAIN, SOB, AND N/V. VSS/AFEBRILE.CALL LIGHT IN REACH. BED IN LOWEST POSITION AND ALARM ACTIVATED. WILL CONTINUE TO MONITOR UNTIL DAY SHIFT NURSE ASSUMES CARE.
[2023-05-09 07:26] VITALS: BP 106/70
[2023-05-09 07:35] LABS: BASOPHILS ABSOLUTE AUTO 0.03 K/mm3 (0.00-0.23); BASOPHILS PERCENT AUTO 1 % (0-2); EOSINOPHILS ABSOLUTE AUTO 0.07 K/mm3 (0.00-0.68); EOSINOPHILS PERCENT AUTO 1 % (0-6); Hematocrit 27.7 % (37.0-53.0); Hemoglobin 7.9 g/dL (13.5-17.5); IMMATURE GRAN ABSOLUTE AUTO 0.01 K/mm3 (0.00-0.10); IMMATURE GRAN PERCENT AUTO 0 % (0-1); LYMPHOCYTES ABSOLUTE AUTO 0.66 K/mm3 (0.84-5.20); LYMPHOCYTES PERCENT AUTO 12 % (21-46); MONOCYTES PERCENT AUTO 9 % (4-13); Mean Corpuscular HGB 23.7 pg (26.0-34.0); Mean Corpuscular HGB Conc 28.5 g/dL (31.5-36.5); Mean Corpuscular Volume 83 fL (80-100); Mean Platelet Volume 9.6 fL (9.1-12.4); NEUTROPHILS ABSOLUTE AUTO 4.32 K/mm3 (1.96-9.15); NEUTROPHILS PERCENT AUTO 77 % (41-73); Platelet Count 187 K/mm3 (150-400); RDW Standard Deviation 54.6 fL (35.1-46.3); Red Blood Cell Count 3.33 M/mm3 (4.30-5.90); White Blood Cell Count 5.59 K/mm3 (4.00-11.30)
[2023-05-09 07:55] LABS: Albumin/Globulin Ratio 0.4 (0.8-1.8); Bilirubin, Total 2.8 mg/dL (0.1-1.0); Bun/Creatinine Ratio 22.3 (12.0-20.0); Calcium, Blood 8.4 mg/dL (8.5-10.1); Creatinine, Blood 0.63 mg/dL (0.60-1.20); Globulin, Blood 4.5 g/dL (2.2-4.0); Potassium, Blood 3.6 mmol/L (3.5-5.5); Total Protein, Blood 6.5 g/dL (6.4-8.2)
[2023-05-09 16:19] VITALS: BP 116/57
--- NOTE | 2023-05-09 18:03 | NUR ---
SHIFT SUMMARY PATIENT APPEARED TO BE HALLUCINATING MID SHIFT TODAY, STATED HE WAS SPEAKING TO ANDREW AND GESTURING TOWARD EMPTY CHAIRS, SHUSHED NURSE WHEN CONTINUING TO INVESTIGATE, STATED "YOURE BEING RUDE, I WASN'T TALKING TO YOU, I'M TALKING TO ANDREW, QUIT INTERUPTING" AND CONTINUED TO SPEAK TO EMPTY CHAIRS. WORKED WITH PT AND ST THIS SHIFT. COMPLIANT WITH CARES AND WAS ABLE TO USE BEDPAN AND VERBALIZE NEED TO GO RATHER THAN BE INCONTINENT. WILL CONTINUE TO MONITOR.
[2023-05-09 20:11] VITALS: BP 96/73
--- NOTE | 2023-05-09 21:57 | NUR ---
PATIENT HAVING INCREASED AGITATION. REFUSING PERSONAL CARE AT FIRST. ABLE TO CHANGE ATTENDS AFTER TALKING TO PATIENT. SWINGING LEGS OUT OF BED X FOUR SINCE SHIFT CHANGE. BED ALARM ON. WCTM.
[2023-05-10 03:03] VITALS: BP 125/76
--- NOTE | 2023-05-10 04:00 | NUR ---
SHIFT SUMMARY PATIENT AGITATED X ONE AND ABLE TO CALM DOWN. AXOX 2 AND SIT TO STAND. TAKES MEDS CRUSHED IN APPLESAUCE. BASELINE TREMORS. NO IV ACCESS. VSS/AFEBRILE. DENIES CHEST PAIN, SOB, AND N/V. ON ROOM AIR. PATIENT SWINGING LEGS OOB T/O SHIFT ACTIVATING BED ALARM. CALLS OUT FOR PARENTS AT TIMES. CALL LIGHT IN REACH. BED IN LOWEST POSITION AND ALARM ACTIVATED. WILL CONTINUE TO MONITOR UNTIL DAY SHIFT NURSE ASSUMES CARE.
[2023-05-10 05:31] LABS: BASOPHILS ABSOLUTE AUTO 0.03 K/mm3 (0.00-0.23); BASOPHILS PERCENT AUTO 1 % (0-2); EOSINOPHILS PERCENT AUTO 2 % (0-6); Hematocrit 27.5 % (37.0-53.0); Hemoglobin 7.7 g/dL (13.5-17.5); IMMATURE GRAN ABSOLUTE AUTO 0.01 K/mm3 (0.00-0.10); IMMATURE GRAN PERCENT AUTO 0 % (0-1); LYMPHOCYTES ABSOLUTE AUTO 0.72 K/mm3 (0.84-5.20); LYMPHOCYTES PERCENT AUTO 14 % (21-46); MONOCYTES ABSOLUTE AUTO 0.69 K/mm3 (0.16-1.47); MONOCYTES PERCENT AUTO 14 % (4-13); Mean Corpuscular HGB 23.5 pg (26.0-34.0); Mean Corpuscular Volume 84 fL (80-100); Mean Platelet Volume 10.1 fL (9.1-12.4); NEUTROPHILS ABSOLUTE AUTO 3.46 K/mm3 (1.96-9.15); NEUTROPHILS PERCENT AUTO 69 % (41-73); Platelet Count 173 K/mm3 (150-400); RDW Standard Deviation 55.8 fL (35.1-46.3); Red Blood Cell Count 3.28 M/mm3 (4.30-5.90); White Blood Cell Count 5.01 K/mm3 (4.00-11.30)
[2023-05-10 06:03] LABS: Bun/Creatinine Ratio 20.3 (12.0-20.0); Calcium, Blood 8.3 mg/dL (8.5-10.1); Creatinine, Blood 0.69 mg/dL (0.60-1.20); Potassium, Blood 3.4 mmol/L (3.5-5.5)
[2023-05-10 07:06] VITALS: BP 93/64
--- NOTE | 2023-05-10 18:00 | NUR ---
SHIFT SUMMARY PATIENT AGREEABLE TO SIT IN CHAIR TODAY. CONTINUES TO HALLUCINATE PERSONS SPEAKING TO HIM. ABLE TO USE URINAL THIS SHIFT WITH NO INCONTINENT EPISODES. C/O TESTICLE PAIN WHILE IN CHAIR, RESOLVED WITH REPOSITIONING. ABLE TO CLEAR THROAT AFTER FLUID INTAKE. CARES ONGOING.
[2023-05-10 18:12] VITALS: BP 94/57
[2023-05-10 20:10] VITALS: BP 94/66
[2023-05-11] VITALS (7 sets, daily range): BP systolic 82–142; BP diastolic 57–84
--- NOTE | 2023-05-11 03:02 | NUR ---
PATIENT HAVING MULTIPLE OOB ATTEMPTS ACTIVATING BED ALARM. BEDREST. INCREASED AGITATION. ALERT TO SELF. NOT ABLE TO FOLLOW DIRECTIONS AT THIS TIME. PATIENT BACK INTO BED AND ALARM ON. WCTM.
--- NOTE | 2023-05-11 04:01 | NUR ---
SHIFT SUMMARY PATIENT AGITATED AT TIMES WITH ATTENDS CHANGES AND GETTING BACK IN BED FROM SITTING POSITION IN BED. SIX PLUS OOB ATTEMPTS ACTIVATING BED ALARM. AXOX 2 AND BEDREST. SIT TO STAND FROM CHAIR TO BED. NO IV ACCESS. DENIES CHEST PAIN, SOB, AND N/V. VSS/AFEBRILE. BASELINE TREMORS BUE AND BLE. CALL LIGHT IN REACH. BED IN LOWEST POSITION AND ALARM ACTIVATED. WILL CONTINUE TO MONIOR UNTIL DAY SHIFT NURSE ASSUMES CARE.
[2023-05-11 04:59] LABS: BASOPHILS ABSOLUTE AUTO 0.04 K/mm3 (0.00-0.23); BASOPHILS PERCENT AUTO 1 % (0-2); EOSINOPHILS ABSOLUTE AUTO 0.09 K/mm3 (0.00-0.68); EOSINOPHILS PERCENT AUTO 1 % (0-6); Hematocrit 24.5 % (37.0-53.0); IMMATURE GRAN ABSOLUTE AUTO 0.02 K/mm3 (0.00-0.10); IMMATURE GRAN PERCENT AUTO 0 % (0-1); LYMPHOCYTES PERCENT AUTO 13 % (21-46); MONOCYTES ABSOLUTE AUTO 0.88 K/mm3 (0.16-1.47); MONOCYTES PERCENT AUTO 14 % (4-13); Mean Corpuscular HGB 23.9 pg (26.0-34.0); Mean Corpuscular HGB Conc 28.6 g/dL (31.5-36.5); Mean Corpuscular Volume 84 fL (80-100); Mean Platelet Volume 10.5 fL (9.1-12.4); NEUTROPHILS ABSOLUTE AUTO 4.51 K/mm3 (1.96-9.15); NEUTROPHILS PERCENT AUTO 71 % (41-73); Platelet Count 177 K/mm3 (150-400); RDW Coefficient Variation 18.1 % (11.7-14.2); RDW Standard Deviation 55.1 fL (35.1-46.3); Red Blood Cell Count 2.93 M/mm3 (4.30-5.90); White Blood Cell Count 6.34 K/mm3 (4.00-11.30)
[2023-05-11 05:18] LABS: Albumin, Blood 1.7 g/dL (3.4-5.0); Albumin/Globulin Ratio 0.4 (0.8-1.8); Bun/Creatinine Ratio 23.8 (12.0-20.0); Calcium, Blood 8.1 mg/dL (8.5-10.1); Creatinine, Blood 0.67 mg/dL (0.60-1.20); Potassium, Blood 3.4 mmol/L (3.5-5.5); Total Protein, Blood 5.7 g/dL (6.4-8.2)
[2023-05-11 10:28] LABS: Hematocrit 27.5 % (37.0-53.0); Hemoglobin 7.8 g/dL (13.5-17.5)
--- NOTE | 2023-05-11 15:44 | NUR ---
HYPOTENSION BP 86/[address] CASANOVA NOTIFIED AND IN TO SEE THE PATIENT. ORDERED BOLUS OF 1L NS. IV PLACED AND FLUIDS NOW RUNNING. PTS PARENTS IN ROOM AND UPDATED ABOUT THIS. ENCOURAGING PO FLUID INTAKE.
--- NOTE | 2023-05-11 17:17 | NUR ---
SHIFT SUMMARY PT UP TO CHAIR FOR MEALS AND MOST THE DAY. HAD A BM ON THE COMMODE. BP LW THIS AFTERNOON. PT STATES HE IS DIZZY WHEN STANDING WITH PHYSICAL THERAPY. 1L NS BOLUS ADMINISTERED ORDERED. BP IMPROVED TO 107/60 AFTERWARDS. PT ENCOURAGED TO INCREASE FLUID INTAKE. PT HAS DONE BETTER THE SECOND HALF OF DAY. DRINKING 480CC SO FAR THIS SHIFT. URINE TEA COLORED. MDS AWARE. DISCHARGE PLANNING WORKING ON PLACEMENT FOR THE PATIENT. NO OTHER ACUTE CHANGES IN ASSESSMENT AT THIS TIME. NO OTHER ACUTE CHANGES IN ASSESSMENT AT THIS TIME. VS REVIEWED. CALL LIGHT IN REACH. DENIES OTHER NEEDS AT THIS TIME.
--- NOTE | 2023-05-12 | NUR ---
2330: PT ATTEMPTED TO GET UP OOB. PT WAS VERY CONFUSED, STATED THAT HE HAD TO TAKE HIS SISTER TO HER DOCTOR'S APPOINTMENT. PT WAS VERY ADAMANT ABOUT LEAVING AMA RIGHT NOW. VAIBHAV WAS ABLE TO PERSUADE PT TO STAY OVERNIGHT. PT WAS SAFELY REPOSITIONED, PT ASSESSED FOR PAIN. PT DENIED PAIN/DISCOMFORT. THIS AUTHOR ASKED IF PT NEEDED TO USE THE URINAL. EARLIER DURING 2100 MEDICATION PASS, PT CLAIMED THAT HE JUST GOT BACK FROM [place] RECENTLY. PRN MELATONIN OFFERED BUT PT DECLINED. FLUIDS ENCOURAGED, AND SNACKS WERE OFFERED. BED ALARM TURNED ON, BED IN LOWEST POSITION, CALL LIGHT WITHIN REACH, WCTM.
[2023-05-12 02:14] VITALS: BP 121/71
--- NOTE | 2023-05-12 02:48 | NUR ---
END OF SHIFT SUMMARY PT SLEPT ON AND OFF THROUGHOUT THE SHIFT. PT A&O x1-2. PT ATTEMPTED TO GET OOB, PULLED HIS IV OUT AND URINATED ALL OVER THE FLOOR. TOTAL BED CHANGE x1, PT VERY UNSTEADY WHILE STANDING UP TO USE FWW TO STAND PIVIOT TO CHAIR AT BEDSIDE. PT ENCOURAGED TO USE CALL LIGHT FOR ASSISTANCE. 3 BED RAILS ARE UP, BED ALARM ON FOR SAFETY. FREQUENT SAFETY CHECKS COMPLETED. CALL LIGHT WITHIN REACH, WCTM.
[2023-05-12 07:21] VITALS: BP 91/60
[2023-05-12 08:46] LABS: Hematocrit 27.5 % (37.0-53.0); Hemoglobin 7.8 g/dL (13.5-17.5)
[2023-05-12 09:09] LABS: Albumin, Blood 1.9 g/dL (3.4-5.0); Albumin/Globulin Ratio 0.4 (0.8-1.8); Bilirubin, Total 2.2 mg/dL (0.1-1.0); Bun/Creatinine Ratio 27.2 (12.0-20.0); Calcium, Blood 8.2 mg/dL (8.5-10.1); Creatinine, Blood 0.63 mg/dL (0.60-1.20); Globulin, Blood 4.7 g/dL (2.2-4.0); Potassium, Blood 3.5 mmol/L (3.5-5.5); Total Protein, Blood 6.6 g/dL (6.4-8.2)
[2023-05-12 11:19] LABS: Source, Urine Voided
[2023-05-12 11:24] LABS: Appearance, Urine Clear (Clear); Bilirubin, Urine Neg (Neg); Blood, Urine Neg (Neg); Color, Urine Yellow (P-Yellow); Glucose Qualitative, Urine Neg (Neg); Ketones, Urine Neg (Neg); Leukocyte Esterase, Urine 1+ (Neg); Nitrite, Urine Neg (Neg); Protein, Urine 1+ (Neg); Urobilinogen, Urine 2+ (Normal)
[2023-05-12 11:31] LABS: Bacteria Rare /hpf; Red Blood Cells, Urine 0-2 /hpf (0-2); Squamous Epithelial Cells Rare /hpf (Few)
[2023-05-12 12:06] LABS: Base Excess Venous -3.4 mmol/L; Bicarbonate Venous 21.5 mmol/L (24.0-30.0); PCO2 Venous 47.4 mmHg (38-42)
--- NOTE | 2023-05-12 12:50 | NUR ---
AGITATION PT INCREASED IN AGITATION. PT UPSET AT STAFF FOR "RUINING HIS LIFE". RN ATTEMPTED TO TALK WITH PATIENT AND SEE WHAT MIGHT BE THE ISSUE. PT RESPONDED BY STATING "I AM GOING TO THROW THIS KELIN IN YOUR FACE". RN REMINDED PATIENT THAT IS INAPPROPRIOTE AND LEFT THE ROOM.
[2023-05-12 12:58] VITALS: BP 120/100
[2023-05-12 15:16] VITALS: BP 106/68
--- NOTE | 2023-05-12 16:48 | NUR ---
SHIFT SUMMARY OVERALL PT MENTATION IS FLUCTUATING TODAY. PT WAS AGITATED FIRST THIS THIS MORNING. AND ALSO UPSET THIS AFTERNOON, STATING HE WAS "GETTING OUT OF HERE". PT CALMED DOWN BY STAFF AND ENCOURAGED TO STAY UNTIL HE IS ABLE TO WALK ON HIS OWN. PT UNDERSTOOD AND SETTLED BACK DOWN. OTHERWISE, PT HAS BEEN COOPERATIVE TODAY. OVERALL MORE CONFUSED AND HALLUCINATING MORE COMPARED TO YESTERDAY. UA OBTAINED & SET TO LAB. CURRENTLY BEING CULTURED. BP SOFT THIS AM. D51/2 NS X1 LITER ORDERED & ADMINISTERED TO HELP. PT ENCOURAGED TO INCREASE HIS PO INTAKE. PT DOES NOT REMEMBER TO DRINK UNLESS BEING REMINDED. POOR APPETITE OVERALL TODAY. URINATING WITHOUT RETENTION, CONTINENTLY. UP TO CHAIR FOR MEALS VIA SIT TO STAND LIFT. PARTICIPATING IN THERAPY TODAY. NO OTHER ACUTE CHANGES IN ASSESSMENT AT THIS TIME. VS REVIEWED. CALL LIGHT IN REACH. PT CURRENTLY PRESSING CALL LIGHT BUTTONS, BUT STATES HE DOES NOT NEED HELP. BED BATH COMPLETED TODAY ALSO.
--- NOTE | 2023-05-12 19:40 | NUR ---
DISCUSSED BEHAVIOR DURING SHIFT REPORT. VOICED UNDERSTANDING OF WHAT WE WERE TALKING ABOUT, BUT DID NOT SEEM MOTIVATED ABOUT BEING COOPERATIVE. CALL LIGHT IN REACH. WILL ENCOURAGE SAFETY OF ELF AND OTHERS
[2023-05-12 19:57] VITALS: BP 99/69
--- NOTE | 2023-05-13 03:30 | NUR ---
MACHINE INSPECTOR SUMMARY BP LOW NORMAL, OTHERWISE VSS. FLUIDS ENCOURAGED, ASSISED WITH URINAL HE VOICED NEED TO VOID AND IS WEAK WITH AMBULATION. INTERMITTENT VERBALIZATION SLOW, LOW TONED WORDS. SOME CONFSUSION AND APPARENT VISUAL HALLUCINATIONS HE MENTIONED/DISCUSSED THINGS HE SAW BUT I DID NOT. EASILY AGITATED, ESPECIALLY WHEN STAFF TRIED TO ASSIST HIM AND HE DIDN'T WANT TO BE ASSISTED. ASSISTED TO BED FROM BEDSIDE CHAIR WITH SIT TO STAND. BECAME AGITATED SOON AFTER AND MADE MULTIPLE ATTEMPTS TO GET OUT OF BED. NONRECEPTIVE TO REDIRECTIN AND ANGER/AGITATION INCREASED. NOTIFIED AND HALDOL 2.5 MG IV ORDERED/ADMINISTERED AND HAS BEEN RESTING QUIETLY WITH FEW INTERRUPTIONS SINCE. CALL LIGHT IN REACH. RAILS UP X 3 FOR SAFETY. BED ALARM ON. WILL CONTINUE TO MONITOR
[2023-05-13 03:56] VITALS: BP 148/86
[2023-05-13 05:08] LABS: BASOPHILS ABSOLUTE AUTO 0.04 K/mm3 (0.00-0.23); BASOPHILS PERCENT AUTO 1 % (0-2); EOSINOPHILS ABSOLUTE AUTO 0.13 K/mm3 (0.00-0.68); EOSINOPHILS PERCENT AUTO 2 % (0-6); Hematocrit 26.1 % (37.0-53.0); Hemoglobin 7.5 g/dL (13.5-17.5); IMMATURE GRAN ABSOLUTE AUTO 0.03 K/mm3 (0.00-0.10); IMMATURE GRAN PERCENT AUTO 0 % (0-1); LYMPHOCYTES ABSOLUTE AUTO 0.86 K/mm3 (0.84-5.20); LYMPHOCYTES PERCENT AUTO 11 % (21-46); MONOCYTES ABSOLUTE AUTO 0.72 K/mm3 (0.16-1.47); MONOCYTES PERCENT AUTO 9 % (4-13); Mean Corpuscular HGB 23.7 pg (26.0-34.0); Mean Corpuscular HGB Conc 28.7 g/dL (31.5-36.5); Mean Corpuscular Volume 83 fL (80-100); NEUTROPHILS ABSOLUTE AUTO 5.91 K/mm3 (1.96-9.15); NEUTROPHILS PERCENT AUTO 77 % (41-73); Platelet Count 212 K/mm3 (150-400); RDW Coefficient Variation 17.7 % (11.7-14.2); RDW Standard Deviation 53.4 fL (35.1-46.3); Red Blood Cell Count 3.16 M/mm3 (4.30-5.90); White Blood Cell Count 7.69 K/mm3 (4.00-11.30)
[2023-05-13 05:37] LABS: Albumin, Blood 1.8 g/dL (3.4-5.0); Albumin/Globulin Ratio 0.4 (0.8-1.8); Bilirubin, Total 2.1 mg/dL (0.1-1.0); Bun/Creatinine Ratio 27.1 (12.0-20.0); Calcium, Blood 8.2 mg/dL (8.5-10.1); Creatinine, Blood 0.52 mg/dL (0.60-1.20); Globulin, Blood 4.4 g/dL (2.2-4.0); Potassium, Blood 3.4 mmol/L (3.5-5.5); Total Protein, Blood 6.2 g/dL (6.4-8.2)
[2023-05-13 07:05] VITALS: BP 137/75
[2023-05-13 16:31] VITALS: BP 132/62
--- NOTE | 2023-05-13 17:24 | NUR ---
SUMMARY- PT A/O X2, LABILE ORIENTATION, TIMES OF CONFUSION/DELUSIONS, TALKATIVE NONSENCIAL SPEECH. AT OTHER TIMES MORE ORIENTED. PT UP TO CHAIR FOR BREAKFAST AND LUNCH USING SIT TO STAND. PT IS AT TIMES CONTINET OTHER TIMES INCONT. PT FEEDS SELF WITH SET UP AND ASSISTANCE/CUING NEEDED. PT DOES NOT DRINK FLUIDS WITHOUT FREQ CUES TO TAKE SIPS. TAKES IN SMALL SIPS AT A TIME OF THICK FLUIDS. APPROX 3 TIMES TODAY THAT PT BEGAN COUGHING CLOSELY AFTER PO INTAKE, ENC COUGH AND YANKAUR SUCTION. SATS 98-100% ON ROOM AIR. LUNGS CLEAR. CONT PULSE OX ON REMOTE MONITOR. PT TOLERATES ABOUT 25%-50 OF MEALS. NAPPED ON/OFF TODAY DURING ACTIVITIES. WORKED WITH PHYSICAL THERAPY TODAY. PARANTS HERE MOST OF THE DAY ON/OFF, INVOLVED AND SUPPORTIVE IN CARE. WILL REPORT TO GENI STARK
[2023-05-13 20:16] VITALS: BP 123/73
--- NOTE | 2023-05-14 03:55 | NUR ---
SHIFT SUMMARY PT ALERT TO SELF ONLY. CONFUSED WITH FREQUENT AUDITORY AND VISUAL HALLUCINATIONS. PT IS CURRENTLY NPO DUE TO ASPIRATION RISK AND AWAITING SWALLOW EVAL. LR INFUISING AT 75 ML/HR. PT CONTINENT/INCONTINET. USES URINAL WITH ASSISTANCE AND SIT TO STAND TO BSC. PT FREQUENTLY HITS CALL LIGHT, TRIES GETTING OOB, OR PULLS AT CLOTHING AND LINES. EASILY REDIRECTABLE BUT EASILY FORGETS. BED ALARM IN PLACE FOR SAFETY. BED IN LOWEST POSITION WITH CALL LIGHT IN REACH.
[2023-05-14 04:33] VITALS: BP 125/77
[2023-05-14 05:50] LABS: BASOPHILS ABSOLUTE AUTO 0.03 K/mm3 (0.00-0.23); BASOPHILS PERCENT AUTO 1 % (0-2); EOSINOPHILS PERCENT AUTO 2 % (0-6); Hematocrit 26.9 % (37.0-53.0); Hemoglobin 7.7 g/dL (13.5-17.5); IMMATURE GRAN ABSOLUTE AUTO 0.01 K/mm3 (0.00-0.10); IMMATURE GRAN PERCENT AUTO 0 % (0-1); LYMPHOCYTES ABSOLUTE AUTO 0.59 K/mm3 (0.84-5.20); LYMPHOCYTES PERCENT AUTO 10 % (21-46); MONOCYTES ABSOLUTE AUTO 0.54 K/mm3 (0.16-1.47); MONOCYTES PERCENT AUTO 10 % (4-13); Mean Corpuscular HGB 23.8 pg (26.0-34.0); Mean Corpuscular HGB Conc 28.6 g/dL (31.5-36.5); Mean Corpuscular Volume 83 fL (80-100); Mean Platelet Volume 10.3 fL (9.1-12.4); NEUTROPHILS ABSOLUTE AUTO 4.43 K/mm3 (1.96-9.15); NEUTROPHILS PERCENT AUTO 78 % (41-73); Platelet Count 198 K/mm3 (150-400); RDW Coefficient Variation 17.8 % (11.7-14.2); RDW Standard Deviation 54.4 fL (35.1-46.3); Red Blood Cell Count 3.23 M/mm3 (4.30-5.90)
[2023-05-14 06:04] LABS: Albumin, Blood 1.8 g/dL (3.4-5.0); Albumin/Globulin Ratio 0.4 (0.8-1.8); Bilirubin, Total 2.1 mg/dL (0.1-1.0); Bun/Creatinine Ratio 21.2 (12.0-20.0); Calcium, Blood 8.2 mg/dL (8.5-10.1); Creatinine, Blood 0.57 mg/dL (0.60-1.20); Globulin, Blood 4.5 g/dL (2.2-4.0); Potassium, Blood 3.4 mmol/L (3.5-5.5); Total Protein, Blood 6.3 g/dL (6.4-8.2)
[2023-05-14 07:46] VITALS: BP 140/57
[2023-05-14 15:39] VITALS: BP 77/62
[2023-05-14 15:41] VITALS: BP 110/71
--- NOTE | 2023-05-14 18:25 | NUR ---
SUMMARY- PT A/O X2- CONFUSED, MUMBLED SPEECH, FREQ DELUSIONS AND VISUAL HALLULCINATIONS. DURING WAKING HOURS IS CONSTANTLY TALKING TO HIMSELF AND FIDGITING WITH ANYTHING CLOSE TO HIS REACH. NAPPED ON/OFF DURING THE DAY FOR 30MIN PERIODS THAN AWAKENS, ANXIOUS AND CONFUSED. GOT UP TO CHAIR WITH CEILING LIFT. USED SIT TO STAND TO TRY FOR BM ON BSC, PT NOT ABLE TO BEAR WT AND TEDIOUS, SLIPPING OUT FROM MACHINE, 3 PEOPLE WERE ABLE TO GET HIM BACK TO THE CHAIR. PT GIVEN [place]. PT KEPT TRYING FOR BM, RN CHECKED RECTUM, FELT FIRM STOOL FILLING RECTUM. ORDER FOR FLEETS, GIVEN, PT HAD LG FORMED BROWN BM AFTER FLEETS. PT FED LUNCH TODAY AFTER CLEARED BY SPEECH, SM BITES, SLOWLY, PT STILL HAD COUGHING EPISODE DURING LUNCH. THICK LIQ, CONSTANTLY OFFERING FLUIDS. PT ABLE TO TAKE IN FREQ SM AMOUNTS OF THICK LIQ ONLY WITH QUING. PARENTS HERE VISITING MOST OF THE DAY. INVOLVED IN POC. WILL REPORT TO GENI STARK
[2023-05-14 21:34] VITALS: BP 140/89
--- NOTE | 2023-05-15 04:27 | NUR ---
SHIFT SUMMARY PT ALERT, CONFUSED, AND COOPERATIVE WITH CARE. PT UP MOST OF THE NIGHT HAVING AUDITORY AND VISUAL HALLUCINATIONS. TRIED GIVING PT THINGS TO FIDGIT WITH BECAUSE HE IS CONSTANTLY PULLING ON THINGS AND FREQ TRYING TO GET OOB. PT ON PUREED DIET AND THICKENED LIQUIDS. PT IS A FEEDER AND NEEDS FULL ASSITANCE, OFFERED THICKENED FLUIDS FREQ. PT CONTINENT/INCONTINENT OF BLADDER AND BOWEL. ROOM AIR WITH REMOTE BOIX IN PLACE, SATS IN THE 90S. BED KEPT IN LOWEST POSITION WITH CALL LIGHT IN REACH. PT KNOWS HOW TO CALL FOR NEEDS. BED ALARM IN PLACE.
[2023-05-15 07:39] VITALS: BP 95/81
[2023-05-15 08:38] VITALS: BP 131/96
[2023-05-15 08:40] LABS: BASOPHILS ABSOLUTE AUTO 0.03 K/mm3 (0.00-0.23); BASOPHILS PERCENT AUTO 1 % (0-2); EOSINOPHILS ABSOLUTE AUTO 0.14 K/mm3 (0.00-0.68); EOSINOPHILS PERCENT AUTO 2 % (0-6); Hematocrit 29.2 % (37.0-53.0); Hemoglobin 8.1 g/dL (13.5-17.5); IMMATURE GRAN ABSOLUTE AUTO 0.01 K/mm3 (0.00-0.10); IMMATURE GRAN PERCENT AUTO 0 % (0-1); LYMPHOCYTES ABSOLUTE AUTO 0.68 K/mm3 (0.84-5.20); LYMPHOCYTES PERCENT AUTO 12 % (21-46); MONOCYTES ABSOLUTE AUTO 0.63 K/mm3 (0.16-1.47); MONOCYTES PERCENT AUTO 11 % (4-13); Mean Corpuscular HGB 23.7 pg (26.0-34.0); Mean Corpuscular HGB Conc 27.7 g/dL (31.5-36.5); Mean Corpuscular Volume 85 fL (80-100); Mean Platelet Volume 10.2 fL (9.1-12.4); NEUTROPHILS ABSOLUTE AUTO 4.32 K/mm3 (1.96-9.15); NEUTROPHILS PERCENT AUTO 74 % (41-73); Platelet Count 200 K/mm3 (150-400); RDW Coefficient Variation 17.7 % (11.7-14.2); RDW Standard Deviation 54.6 fL (35.1-46.3); Red Blood Cell Count 3.42 M/mm3 (4.30-5.90); White Blood Cell Count 5.81 K/mm3 (4.00-11.30)
[2023-05-15 09:10] LABS: Alanine Aminotransfer (ALT/SGP 38 U/L (12-78); Albumin, Blood 1.8 g/dL (3.4-5.0); Albumin/Globulin Ratio 0.4 (0.8-1.8); Alk Phos 208 U/L (50-136); Anion Gap 7 mmol/L (6-16); Aspartate Aminotrans (AST/SGOT 91 U/L (12-37); Bilirubin, Indirect 0.1 mg/dL (0.1-0.7); Bilirubin, Total 2.1 mg/dL (0.1-1.0); Blood Urea Nitrogen 10 mg/dL (8-24); Bun/Creatinine Ratio 15.9 (12.0-20.0); CO2, Blood 23 mmol/L (21-32); Calcium, Blood 8.1 mg/dL (8.5-10.1); Chloride, Blood 115 mmol/L (98-108); Creatinine, Blood 0.63 mg/dL (0.60-1.20); Globulin, Blood 4.5 g/dL (2.2-4.0); Glomerular Filtration Rate 115 (60-); Glucose, Blood 80 mg/dL (70-99); Potassium, Blood 3.5 mmol/L (3.5-5.5); Sodium, Blood 145 mmol/L (136-145); Total Protein, Blood 6.3 g/dL (6.4-8.2)
[2023-05-15 15:26] VITALS: BP 93/71
[2023-05-15 15:27] VITALS: BP 91/62
--- NOTE | 2023-05-15 15:48 | NUR ---
SHIFT SUMMARY: PATIENT ALERT AND ORIENTED TO SELF ONLY, MUMBLES IN SPEECH, ANXIOUS AT TIMES, CONFUSED AND EPISODE OF VISUAL HALLUCINATION OFF AND ON T/O THE DAY. PATIENT HAS VISIBLE TREMORS TO BUE'S. PATIENT ABLE TO GET OOB USING A CEILING LIFT AND TRANSFERRED TO RECLINER CHAIR c 2 MAX ASSIST AND STAYED IN CHAIR FOR 6 HRS, TOLERATED WELL. PATIENT HAD LARGE SOFT BM, INCONT OF BLADDER, EMILY CARE, ATTENDS PLACED AND CHANGED T/O SHIFT. PATIENT PARTICIPATED c OT MOBILITY IN CHAIR, TOLERATED WELL. PATIENT DENIES SOB, N/V, CP/PRESSURE, AND DIZZINESS. PATIENT RECEIVED SCHEDULED MEDS PER EMAR. PATIENT ON PUREED DIET, FEED ASSIST AND ORAL CARE DONE. VITAL SIGNS REVIEWED. CHAIR ALARM ON FOR SAFETY. CALL LIGHT IN REACH.
[2023-05-15 16:30] VITALS: BP 110/60
[2023-05-15 20:27] VITALS: BP 122/88
[2023-05-15 22:49] LABS: HOMOCYSTEINE,TOTAL 7 umol/L (0-15)
[2023-05-16] VITALS (7 sets, daily range): BP systolic 89–129; BP diastolic 54–110
--- NOTE | 2023-05-16 02:46 | NUR ---
AGGRESSION PT AWAKENED FOR ATTENDS CHECK. PT STATED TO PICTURE FRAMER," GET OUT OR I WILL PUNCH YOU." REDIRECTED. ASKED PT TO USE THE URINAL. BED ALARM ON. BED LOW AND LOCKED. CALL LIGHT WITH IN REACH. CARE ON GOING.
--- NOTE | 2023-05-16 03:55 | NUR ---
NOTE PT AWAKE AND DELISIONAL. THINNKS THE BED CONTROLS ARE THE CONTROLS TO A VIDEO GAME HE'S PLAYING. SCREAMS AT STAFF IF THEY TOUCH THE BUTTONS. VSS. REFUSED CPAP DURING THE NIGHT. MULTIPLE ATTEMPTS TO APPLY. VOIDED X1 WITH ASSIST IN URINAL. FREQUENT ATTEMPTS TO CLIMB OOB UNASSISTED. SLIPPY SOCK ON BFEET. BED LOW AND LOCKED. CALL LIGHT WITH IN REACH. BED ALARM ON. CARE ONGOING.
--- NOTE | 2023-05-16 16:02 | NUR ---
SHIFT SUMMARY: PATIENT A/O TO SELF ONLY, MUMBLES IN SPEECH, VISIBLE TREMORS TO BUE'S AND CONINUES TO HAVE VISUAL HALLUCINATION THIS SHIFT. PATIENT IS CONFUSED, ATTEMPTED TO GET OOB ON COUPLE OCCASION, BUT EASILY REDIRECTABLE. PATIENT IS ON PUREED DIET, FEED ASSIST c MEALS AND ORAL CARE DONE. PATIENT IS CONTIN/INCON OF BLADDER, EMILY CARE, ATTENDS PLACED/CHANGED AND USES URINAL c ASSISTANCE. PATIENT OOB USING CEILING LIFT c 2 MAX ASSIST, TRANSFERRED TO RECLINER CHAIR AND STAYED IN CHAIR FOR A TOTAL OF 8 HRS THIS SHIFT AND TOLERATED WELL. PATIENT HAS BEEN SLEEPING OFF AND ON c CPAP IN PLACED T/O THE DAY. PARENTS AT BEDSIDE OFF/ON T/O SHIFT. PATIENT IS PLEASANT AND COOPERATIVE c CARE THIS SHIFT. PATIENT TAKES MEDS CRUSHED IN APPLE SAUCE. VITAL SIGNS REVIEWED. CHAIR ALARM ON FOR SAFETY. CALL LIGHT IN REACH.
[2023-05-17 03:55] VITALS: BP 122/76
--- NOTE | 2023-05-17 04:44 | NUR ---
Shift Assessment Patient was awake and alert until aroud 2 am. After that he slept about an hour. Respirations regular and unlabored. Skin warm and dry. His speach is mumbled but clear at times. He had a large bowel movement this shift. He used his call light appropriately during the first few hours of the shift. Later he tried to get up unassisted. Bed alarm is in use for patient safety. Denies pain. Call light in reach. Bed in low position.
[2023-05-17 06:46] LABS: Albumin, Blood 1.8 g/dL (3.4-5.0); Albumin/Globulin Ratio 0.4 (0.8-1.8); Bun/Creatinine Ratio 29.2 (12.0-20.0); Creatinine, Blood 0.62 mg/dL (0.60-1.20); Globulin, Blood 4.6 g/dL (2.2-4.0); Potassium, Blood 3.6 mmol/L (3.5-5.5); Total Protein, Blood 6.4 g/dL (6.4-8.2)
[2023-05-17 07:08] VITALS: BP 106/84
[2023-05-17 15:42] VITALS: BP 102/85
--- NOTE | 2023-05-17 16:03 | NUR ---
SHIFT SUMMARY: NO NEW ACUTE CHANGES IN PATIENT CONDITION. PATIENT CONTINUES TO BE A/O TO SELF ONLY, VISUAL HALLUCINATIONS AND VISIBLE TREMORS TO BUE'S. PATIENT HAD BEDBATH AND LINEN CHANGED, TRANSFERRED TO RECLINER CHAIR USING CEILING LIFT. PATIENT STAYED IN THE RECLINER CHAIR c LEGS ELEVATED FOR ABOUT 6 HRS AND HAS BEEN SLEEPING OFF AND ON T/O SHIFT c CPAP IN PLACED. PATIENT STILL ON PUREE DIET c FEED ASSIST AND ORAL CARE DONE. PATIENT TAKE MEDS CRUSHED IN APPLE SAUCE. PATIENT DENIES CP/PRESSURE, N/V, DIZZINESS AND SOB. VITAL SIGNS REVIEWED. NO IV ACCESS PER ORDER. PATIENT AWATING FOR LTC MEDICAID AUTH AND SNF PLACEMENT. CHAIR ALARM ON FOR SAFETY. CALL LIGHT IN REACH.
[2023-05-17 20:25] VITALS: BP 114/73
[2023-05-18 02:42] VITALS: BP 102/81
--- NOTE | 2023-05-18 05:22 | NUR ---
SHIFT SUMMARY PT IS A&O TO SELF. HAVING VISUAL AND AUDITORY HALUCINATIONS. VSS, HR TACHY IN THE 100'S, ON RA, PUT CPAP ON PT AT BEDTIME, HE REMOVED SHORTLY AFTER. DENIES PAIN. TOLERATING A PUREED DIET WITH THICKENED LIQUID. NOT ABLE TO FEED HIMSELF D/T BUE TREMORS. VOIDING SMALL AMOUNTS OF [place] COLORED URINE IN URINAL WITH ASSISTANCE. ALSO IS INCONTINENT, PULL-UP IN PLACE. NO BM THIS SHIFT. BED IN LOWEST POSITION, CALL LIGHT WITHIN REACH. DOES NOT USE CALL LIGHT APPROPRIATELY, BED ALARM SET FOR PT'S SAFETY.
[2023-05-18 06:02] LABS: Hematocrit 26.3 % (37.0-53.0); Hemoglobin 7.5 g/dL (13.5-17.5)
[2023-05-18 06:29] LABS: Albumin, Blood 1.7 g/dL (3.4-5.0); Albumin/Globulin Ratio 0.4 (0.8-1.8); Bilirubin, Total 1.7 mg/dL (0.1-1.0); Bun/Creatinine Ratio 29.9 (12.0-20.0); Creatinine, Blood 0.74 mg/dL (0.60-1.20); Globulin, Blood 4.5 g/dL (2.2-4.0); Potassium, Blood 3.4 mmol/L (3.5-5.5); Total Protein, Blood 6.2 g/dL (6.4-8.2)
[2023-05-18 07:39] VITALS: BP 92/58
[2023-05-18 07:42] VITALS: BP 102/70
--- NOTE | 2023-05-18 08:00 | NUR ---
pt laying in bed, repositioned him for breakfast, he attempted to help but is pretty weak, alert to self, did say good morning and attempted some conversation, lungs are clear t/o, on r/a, resp even and unlabored, has an occ cough more like trying to clear his throat, hrr, murmur noted, no edema noted, ppp+1, cap refill <3sec, vs stable, afebrile, btx4, abd flat soft nontender, voids without diff, skin c/w/d, maew, naima, call light in reach.
[2023-05-18 16:10] VITALS: BP 118/74
--- NOTE | 2023-05-18 18:06 | NUR ---
Pt ambulated the length of the damian with PT, using a walker and gaitbelt, parents here when he walked. pt was assisted to bsc several times with two person assist, he does better if he has a walker or funiture to hold on to, no further changes this shift. call light in reach.
[2023-05-18 19:30] VITALS: BP 114/70
--- NOTE | 2023-05-19 04:29 | NUR ---
SHIFT SUMMARY PT IS A&OX2, SELF AND PLACE. C/O PAIN IN HIS ABD, RLQ. ABD IS FIRM AND TENDER TO PALPATE. VSS ON RA. NO ACUTE CHANGES THIS SHIFT. X1 ASSIST WITH URINAL, ALSO INCONTINENT AT TIMES. PULL-UP IN PLACE. HAD A LARGE LOOSE BM X1 THIS SHIFT. PT STATES HIS ABD FEELS BETTER AFTER THIS. X2 ASSIST WITH GAITBELT, STAND PIVOT TO BSC. SLEPT MORE TONIGHT THAN THE PREVIOUS NIGHT. BED IN LOWEST POSITION, CALL LIGHT WITHIN REACH. BED ALARM SET FOR PT'S SAFETY.
[2023-05-19 04:38] VITALS: BP 116/77
[2023-05-19 07:09] VITALS: BP 119/75
[2023-05-19 07:41] LABS: Hematocrit 26.7 % (37.0-53.0); Hemoglobin 7.6 g/dL (13.5-17.5)
[2023-05-19 08:14] LABS: Albumin, Blood 1.8 g/dL (3.4-5.0); Albumin/Globulin Ratio 0.4 (0.8-1.8); Bilirubin, Total 1.5 mg/dL (0.1-1.0); Bun/Creatinine Ratio 37.9 (12.0-20.0); Creatinine, Blood 0.71 mg/dL (0.60-1.20); Globulin, Blood 4.3 g/dL (2.2-4.0); Potassium, Blood 3.5 mmol/L (3.5-5.5); Total Protein, Blood 6.1 g/dL (6.4-8.2)
[2023-05-19 16:06] VITALS: BP 102/55
--- NOTE | 2023-05-19 17:26 | NUR ---
SHIFT SUMMARY PATIENT UP TODAY AFTER BREAKFAST AND THROUGH LUNCH. HE WALKED WITH THERAPAY DOWN GARG TO WINDOW APPROX 60 FEET, STOPPING EVERY 10-20 FEET TO SIT IN RECLINER WHEELED BEHIND HIM. PARENTS AT BEDSIDE MOST OF DAY. PATIENT ORIENTED X3, UNABLE TO STATE DAY OF WEEK OR MONTH CORRECTLY, HE IS ABLE TO ANSWER ALL OTHER QUESTIONS APPROPRIATELY THOUGH. BED IN LOW POSITION, CALL LIGHT IN REACH. BED ALARM ON FOR SAFETY.
[2023-05-19 20:33] VITALS: BP 123/81
--- NOTE | 2023-05-20 04:39 | NUR ---
SHIFT SUMMARY PT IS A&OX3, SELF, PLACE, KNEW THE MONTH AND YEAR, AND WHO THE PRESIDENT IS. MUCH IMPROVEMENT WITH HIS MENTATION THIS SHIFT. VSS ON RA. C/O PAIN IN HIS ABD. HE HAD 2 LARGE CONTINENT BM'S, AND 3 LOOSE INCONTINENT BM'S THIS SHIFT. SMALL AMOUNT OF TAMEKA COLORED URINE. PULL-UP IN PLACE. X2 ASSIST WITH GAITBELT AND FWW TO BR/BSC. SLEPT WELL ONCE HE QUIT HAVING BM'S. BED IN LOWEST POSITION, CALL LIGHT WITHIN REACH.
[2023-05-20 05:14] VITALS: BP 112/68
[2023-05-20 08:09] VITALS: BP 113/63
[2023-05-20 18:01] LABS: Adenovirus F 40/41 Not Detected (NOT DETECT); Astrovirus Not Detected (NOT DETECT); Campylobacter Sp Not Detected (NOT DETECT); Cryptosporidium Not Detected (NOT DETECT); Cyclospora Cayetanensis Not Detected (NOT DETECT); E. Coli O157 Not Detected (NOT DETECT); Entamoeba Histolytica Not Detected (NOT DETECT); Enteroaggregative E. coli-EAEC Not Detected (NOT DETECT); Enteropathogenic E. coli-EPEC Not Detected (NOT DETECT); Enterotoxigenic E. coli-ETEC Not Detected (NOT DETECT); Giardia Lamblia Not Detected (NOT DETECT); Norovirus GI/GII Not Detected (NOT DETECT); Plesiomonas Shigelloides Not Detected (NOT DETECT); Rotavirus A Not Detected (NOT DETECT); Salmonella Sp Not Detected (NOT DETECT); Sapovirus Not Detected (NOT DETECT); Shiga Toxin-prod E. coli-STEC Not Detected (NOT DETECT); Shigella/Enteroin E. coli-EIEC Not Detected (NOT DETECT); Vibrio Cholerae Not Detected (NOT DETECT); Vibrio Sp Not Detected (NOT DETECT); Yersinia Enterocolitica Not Detected (NOT DETECT)
--- NOTE | 2023-05-20 18:32 | NUR ---
SHIFT SUMMARY PATIENT UP IN CHAIR FOR ALL MEALS, UP TO BATHROOM NEEDED 1-2PERSON ASSIST. HE HAD LOOSE STOOLS THROUGHOUT THE NIGHT AND SOFT STOOLS X2 TODAY. NO OTHER ACUTE EVENTS DURING SHIFT. BED IN LOW POSITION. PATIENT ORIENTED TO SELF SITUATION, LOCATION AND SOMETIMES KNOWS DAY OR MONTH. HE IS USING CALL LIGHT TO MAKE NEEDS KNOWN.
[2023-05-20 21:16] VITALS: BP 107/68
--- NOTE | 2023-05-21 04:53 | NUR ---
SHIFT SUMMARY NOC PT A/O X 3-4. FORGETFUL AT TIMES. PT HAS HALLUCINATIONS SEEING CATS AT TIMES. PT HAS HAD LOOSE STOOLS X 3, WITH 1 INCONTINENT. PT REPORTED ALLERGY TO LACTOSE AND HAS BEEN HAVING DAIRY PRODUCTS WHILE IN HOSPITAL. ALLERGY LIST UPDATED AND DIET ORDER CHANGED. ONE TIME DOSE OF IMODIUM GIVEN. PT USING CPAP FOR SLEEP WITH CONTINUOS BIOX MONITORING SPO2 > 96%. PT AWAITING MEDICAID INSURANCE APPROVAL FOR SNF/LTC PLACEMENT. PT IS CURRENTLY RESTING WITH BED ALARM ON, BED IN LOWEST POSITION, AND CALL LIGHT WITHIN REACH.
[2023-05-21 05:03] VITALS: BP 106/78
[2023-05-21 08:28] VITALS: BP 102/64
--- NOTE | 2023-05-21 16:43 | NUR ---
SHIFT SUMMARY Pt remains A&Ox3 this shift. Forgetful at times. OOB 1 person ast and fww. Unstedy/weak gait. Up in chair majority of day. Resp even nonlabored on RA. Tolerating diet and thickened water. Voiding per urinal. No acute changes this shift. Pain and safety maintained. Will continue to monitor.
[2023-05-21 19:26] VITALS: BP 113/66
[2023-05-22 05:44] VITALS: BP 109/66
--- NOTE | 2023-05-22 06:21 | NUR ---
SHIFT SUMMARY PT A&OX3. COOPERATIVE OF CARE. NO C/O PAIN. PT WOKE DURING THE NIGHT AND THOUGHT HE WAS HOME. ATTEMPTED TO REORIENT PT BUT PT CONTINUED TO FORGET HE WAS IN HOSPITAL. PT WAS UP TO RECLINER FOR A SHORT TIME AT ABOUT 0030. PT REPORTED SEEING HIS CAT UNDER THE BED AND WAS ATTEMPTING TO CALL CAT TO HIM. PT WORE CPAP MOST OF NIGHT. VSS. BED ALARM ON. BED IN LOWEST POSITION AND CALL LIGHT IN REACH.
[2023-05-22 06:30] LABS: Hematocrit 25.2 % (37.0-53.0); Hemoglobin 7.2 g/dL (13.5-17.5)
[2023-05-22 07:11] LABS: Albumin, Blood 1.7 g/dL (3.4-5.0); Albumin/Globulin Ratio 0.4 (0.8-1.8); Bilirubin, Total 1.3 mg/dL (0.1-1.0); Calcium, Blood 7.9 mg/dL (8.5-10.1); Creatinine, Blood 0.78 mg/dL (0.60-1.20); Globulin, Blood 4.3 g/dL (2.2-4.0); Potassium, Blood 3.5 mmol/L (3.5-5.5)
[2023-05-22 07:43] VITALS: BP 99/60
--- NOTE | 2023-05-22 17:20 | NUR ---
SHIFT SUMMARY A&O X 3, VSS. IS 1 PERSON MIN ASSIST TO RESTROOM WITH A FWW. PARTICIPATED ITH PT & OT TODAY. HAS SAT UP IN THE CHAIR MOST OF SHIFT. APPETITE IS GOOD. PARENTS HERE MOST OF SHIFT. PLN IS FOR PLACEMENT OR HOME WITH PARENTS, CAREGIVERS & HH.
[2023-05-22 18:00] VITALS: BP 104/63
[2023-05-22 19:51] VITALS: BP 109/74
--- NOTE | 2023-05-23 04:34 | NUR ---
SHIFT SUMMARY PT A&OX3. COOPERATIVE OF CARE. FORGETFUL AT TIMES BUT REDIRECTABLE. VSS. NO ACUTE CHANGES. PT SLEPT MOST OF NIGHT WITH CPAP IN PLACE. BED ALARM ON. BED IN LOWEST POSITION AND CALL LIGHT IN REACH.
[2023-05-23 05:37] VITALS: BP 112/69
[2023-05-23 07:53] VITALS: BP 99/70
[2023-05-23 15:35] VITALS: BP 101/79
--- NOTE | 2023-05-23 16:35 | NUR ---
SHIFT SUMMARY PATIENT IS ALERT AND ORIENTED X3. PATIENT HAS HAD NO ACUTE EVENTS THIS SHIFT. VITAL SIGNS REVIEWED. PATIENT HAS WORKED WITH PT AND IS A ONE PERSON ASSIST THIS SHIFT. MEDICATIONS TAKEN ONE AT A TIME WITH WATER WORKED WELL. PATIENT HAS HAD FREQUENT VISITORS THIS SHIFT. PATIENT HAS NOT REQUIRED MEDICATING FOR PAIN, NAUSEA, SOB OR VOMITTING. BED IN LOCKED AND LOWEST POSITION. CALL LIGHT IN PLACE. WILL MONITOR UNTIL SHIFT CHANGE.
[2023-05-23 19:24] VITALS: BP 112/66
[2023-05-24 02:55] VITALS: BP 121/56
--- NOTE | 2023-05-24 04:15 | NUR ---
NOTE PT RESTING QUIETLY. CALLS APPROPRIATELY TO USE THE BATHROOM. WEARING CPAP. CONCRETE CARPENTER BLEED IN. CONT BIOX 98% WITH HR 89. UP TO BATHROOM WITH FWW. XLARGE BM. GAIT WEAK AND STEADY. GOOD APPETITE. CARE ONGOING.
[2023-05-24 07:41] VITALS: BP 98/61
[2023-05-24 09:25] LABS: Hematocrit 26.4 % (37.0-53.0); Hemoglobin 7.5 g/dL (13.5-17.5)
[2023-05-24 15:30] VITALS: BP 110/72
--- NOTE | 2023-05-24 17:28 | NUR ---
SHIFT SUMMARY PATIENT IS ALERT AND ORIENTED X3. PATIENT HAS HAD NO ACUTE EVENTS THIS SHIFT. VITAL SIGNS REVIEWED. PATIENT HAS HAD NO COMPLAINT OF SOB, NAUSEA, PAIN OR VOMITTING THIS SHIFT. PATIENT HAS BEEN AMBULATING BETTER WITH A STANDBY ASSIST. PATIENT REQUESTED A DIETARY CONSULT. PATIENT HAS REQUESTED SPEECH RE-EVAL PATIENT. BED IN LOCKD AND LOWEST POSITION. CALL LIGHT IN PLACE. WILL MONITOR UNTIL SHIFT CHANGE.
[2023-05-24 20:02] VITALS: BP 104/76
[2023-05-25 02:36] VITALS: BP 105/70
--- NOTE | 2023-05-25 04:11 | NUR ---
NOTE PT RESTING QUIETLY. CPAP ON. CONTINIOUS BIOX 98%. HR 89. PT HANDLES CPAP MASK HIMSELF. UP TO BATHROOM X1 WITH FWW. GAIT UNSTEADY AND SHAKY. HE DECLINED GOING FOR A WALK IN THE HALLWAY AFTER DINNER. DENIED PAIN OR DISCOMFORT. BED ALARM ON. HE FORGETS TO CALL SOMETIMES. CARE ONGOING.
[2023-05-25 05:34] LABS: Hematocrit 24.1 % (37.0-53.0)
[2023-05-25 08:00] VITALS: BP 90/57
[2023-05-25 15:33] VITALS: BP 103/67
--- NOTE | 2023-05-25 16:34 | NUR ---
SHIFT SUMMARY PATIENT IS ALERT AND ORIENTED X3. PATIENT HAS HAD NO ACUTE EVENTS THIS SHIFT. VITAL SIGNS REVIEWED. PATIENT HAS WORKED WITH PT/OT. PATIENT HAS HAD DIETARY COME AND CONSULT WITH HIM ABOUT DIET CONCERNS. PATIENT HAS HAD A BARIUM SWALLOW REEVALUATION DONE, SEE REPORT. PATIENT HAS NOT HAD ANY OTHER EVENTS THIS SHIFT. PATIENT HAS BEEN CALM AND COOPERATIVE WITH CARE. BED IN LOCKED AND LOWEST POSITION. CALL LIGHT IN PLACE. WILL MONITOR UNTIL SHIFT CHANGE.
[2023-05-25 19:21] VITALS: BP 97/58
[2023-05-26 03:36] VITALS: BP 90/50
--- NOTE | 2023-05-26 04:35 | NUR ---
NOTE PT RESTING WITH CPAP ON. CONT BIOX 98%. PT UP WITH SBA WITH FWW. VSS. NO ACUTE CONCERNS NOTED. CARE ONGOING.
[2023-05-26 07:41] VITALS: BP 101/59
--- NOTE | 2023-05-26 18:07 | NUR ---
SHIFT SUMMARY PT A&OX4, VSS, AND NO ACUTE CHANGES THIS SHIFT. PT WORKED W/ PHYSICAL THERAPY AND OT THIS SHIFT, SEE NOTES. CALL LIGHT WITHIN REACH AND PT ABLE TO MAKE NEEDS KNOWN.
[2023-05-26 19:49] VITALS: BP 104/70
[2023-05-27 02:46] VITALS: BP 96/58
--- NOTE | 2023-05-27 04:30 | NUR ---
1899: ASSUMED CARE OF PT, BEDSIDE REPORT RECEIVED FROM DAYSJONI RN. PT IS SITTING UP IN THE CHAIR AT THIS TIME. DENIES PAIN OR NEEDS. A/O X4, VSS, MEDICATIONS PROVIDED ORDERED. 2129: PT UP TO BED, SBA. ASSISTED WITH BELONGINGS, BRIEF CHANGE, AND CPAP PLACEMENT. URINAL EMPTIED MULTIPLE TIMES DURING THE NIGHT. X1 ASSIST TO REPOSITION CPAP. NO ACUTE EVENTS THIS SHIFT. SAFET MEASURES TAKEN AND NEEDS MET.
[2023-05-27 07:13] VITALS: BP 90/58
[2023-05-27 08:36] LABS: Hematocrit 24.2 % (37.0-53.0); Hemoglobin 6.8 g/dL (13.5-17.5)
[2023-05-27 14:52] VITALS: BP 93/68
--- NOTE | 2023-05-27 17:42 | NUR ---
SHIFT SUMMARY PT WORKED W/ PHYSICAL AND OCCUPATIONAL THERAPY AND TOLERATED IT WELL, SEE NOTES. SPEECH THERAPY SPOKE TO PT AND PT'S FAMILY REGARDING BARRIUM SWALLOW RESULTS W/ NO UPGRADE TO DIET, SEE NOTES. CONT PULSE OX ORDER CHANGED TO USE AT NIGHT W/ CPAP ONLY. PT WALKED THE GARG X2 THIS SHIFT AND TOLERATED IT WELL. NO OTHER ACUTE CHANGES. CALL LIGHT WITHIN REACH AND PT ABLE TO MAKE NEEDS KNOWN.
[2023-05-27 19:25] VITALS: BP 103/68
[2023-05-27 20:00] LABS: Hematocrit 27.5 % (37.0-53.0); Hemoglobin 7.8 g/dL (13.5-17.5)
[2023-05-28] VITALS (10 sets, daily range): BP systolic 93–111; BP diastolic 58–79
--- NOTE | 2023-05-28 04:15 | NUR ---
1900: ASSUMED CARE OF PT, BEDSIDE REPORT RECEIVED FROM MI ANTONIO. PT IS SITTING UP IN THE CHAIR. A/OX4, BREATHING IS EVEN AND UNLABORED. NO ACUTE DISTRESS. UP TO BATHROOM, WALKING IN THE GARG, AND THEN TO BED WITH FWW AND SBA. CPAP AND PLASTIC CNC MACHINE OPERATOR DURING THE NIGHT. NO ACUTE EVENTS. VSS, MEDICATIONS WERE PROVIDED ORDERED EXCEPT FOR POWDER, PT DECLINED. SAFETY MEASURES TAKEN, AND ALL NEEDS ADDRESSED.
[2023-05-28 05:04] LABS: Hematocrit 23.1 % (37.0-53.0); Hemoglobin 6.7 g/dL (13.5-17.5)
[2023-05-28 05:28] LABS: Albumin, Blood 1.7 g/dL (3.4-5.0); Albumin/Globulin Ratio 0.4 (0.8-1.8); Bilirubin, Total 1.1 mg/dL (0.1-1.0); Calcium, Blood 7.7 mg/dL (8.5-10.1); Creatinine, Blood 0.65 mg/dL (0.60-1.20); Globulin, Blood 4.1 g/dL (2.2-4.0); Potassium, Blood 3.8 mmol/L (3.5-5.5); Total Protein, Blood 5.8 g/dL (6.4-8.2)
[2023-05-28 13:43] LABS: Hematocrit 30.3 % (37.0-53.0); Hemoglobin 8.9 g/dL (13.5-17.5)
--- NOTE | 2023-05-28 17:32 | NUR ---
SHIFT SUMMARY PT AOX4, SBA USING THE FWW. HE RECEIVED ONE UNIT OF BLOOD THIS SHIFT AND TOLERATED IT WELL. MEDICATED FOR PAIN PER THE EMAR. WALKED UP AND DOWN THE HALLWAYS TWICE THIS SHIFT, HE TOLERATED IT WELL. NO OTHER COMPLAINTS. PT HAS BEEN UP IN THE CHAIR A MAJORIT OF THE SHIFT, CALLING APPROPRIATELY WHEN HE NEEDS ANYTHING. USING THE URINAL INDEPENDENTLY. CALL LIGHT WITHIN REACH, BED IN THE LOWEST POSITION. WILL REPORT TO ONCOMING NURSE.
[2023-05-29 03:16] VITALS: BP 107/65
[2023-05-29 05:53] LABS: Hematocrit 28.1 % (37.0-53.0); Hemoglobin 8.3 g/dL (13.5-17.5)
--- NOTE | 2023-05-29 06:20 | NUR ---
Shift Summary Pt AOx4, using CPAP during the night. He is on cont. O2 monitoring, no desaturation events. No c/o pain or nausea. Using bedside urinal, continent. Awaiting placement or home health.
[2023-05-29 06:31] LABS: Albumin, Blood 1.9 g/dL (3.4-5.0); Albumin/Globulin Ratio 0.4 (0.8-1.8); Bilirubin, Total 1.4 mg/dL (0.1-1.0); Bun/Creatinine Ratio 25.8 (12.0-20.0); Calcium, Blood 7.9 mg/dL (8.5-10.1); Creatinine, Blood 0.74 mg/dL (0.60-1.20); Globulin, Blood 4.4 g/dL (2.2-4.0); Total Protein, Blood 6.3 g/dL (6.4-8.2)
[2023-05-29 07:36] VITALS: BP 101/64
--- NOTE | 2023-05-29 16:39 | NUR ---
SHIFT SUMMARY: PT A&O X4. PLEASANT AND COOPERATIVE WITH CARE. PT HAD INCONTINENT BM EARLY IN SHIFT. STAFF ASSIST INTO SHOWER AND PT WAS ABLE TO SHOWER HIMSELF. PT USES URINAL INDEPENDENTLY. PT UP IN CHAIR THE ENTIRETY OF THE SHIFT. NO BLOOD NEEDED THIS SHIFT. PT HAS GONE ON 2 WALKS DOWN THE GARG AND BACK TO ROOM. PT WORKED WITH PHYSICAL THERAPY THIS SHIFT. PER PT, PATIENT IS QUICK AND SLIGHTLY IMPULSIVE ON FEET. OT ATTEMPTED TO WORK WITH PT BUT WAS WITH PT AT TIME OF ATTEMPT. LYNNETTE FROM [facility] ARRIVED TO INTERVIEW/ASSESS PT FOR [facility] AND [facility]. NO C/O PAIN THIS SHIFT. MORNING LASIX AND BP MED HELD D/T LOW BP. PT FRUSTRATED THIS SHIFT D/T INSURANCE COMPLICATIONS. CALL LIGHT IN REACH. COMFORTABLE IN CHAIR AT THIS TIME.
[2023-05-29 16:41] VITALS: BP 124/77
[2023-05-29 19:10] VITALS: BP 111/66
[2023-05-30 03:16] VITALS: BP 105/62
--- NOTE | 2023-05-30 05:57 | NUR ---
Shift Summary Pt AOx4, continent, had BM this shift and was able to ambulate to the BR w/ FWW and SBA. No c/o of pain or nausea. He wore his CPAP and slept well t/o the night. Pt GOSIAx4, cooperative with care. BP somewhat soft this AM at 105/62.
[2023-05-30 07:53] VITALS: BP 106/71
[2023-05-30 15:37] VITALS: BP 117/74
--- NOTE | 2023-05-30 16:15 | NUR ---
PATIENT IS ALERT AND ORIENTED AND COOPERATIVE WITH CARE. SBA WITH FWW. HE HAS AMBULATED IN THE HALLWAY TWICE TODAY. UP IN THE CHAIR FOR MEALS. HE WORKED WITH ST TODAY. FAMILY WAS AT THE BEDSIDE THIS AFTERNOON. WILL CONTINUE TO MONITOR
[2023-05-30 19:56] VITALS: BP 107/72
[2023-05-31 04:09] VITALS: BP 106/67
--- NOTE | 2023-05-31 05:30 | NUR ---
SHIFT SUMMARY PT SLEPT THROUGHOUT NIGHT. WOKE FOR MEDS, THEN WENT BACK TO SLEEP. NO SIGNIFICANT CHANGES. PULSEOX REPLACED DUE TO PT PULLING ON IT CAUSING READING ERROR. PT PLEASANT AND COOPERATIVE.
[2023-05-31 07:05] VITALS: BP 130/67
[2023-05-31 15:46] VITALS: BP 117/77
--- NOTE | 2023-05-31 17:14 | NUR ---
SHIFT SUMMARY PT UP TO CHAIR MOST THE DAY. SHOWERED TODAY. AMBULATED THE HALLWAY X3 TIMES WITH STAFF. PT AWAITING SNF PLACEMENT FOR FURTHER REHAB. PARENTS AT BEDISIDE AND UP TO DATE ON THE PLAN OF CARE. VS REVIEWED. PT DENIES PAIN T/O SHIFT. TRANSFERING WITH SUPERVISION. SBA WITH AMBULATION. USING THE URINAL AT BEDSIDE. CALL LIGHT IN REACH. DENIES OTHER NEEDS AT THIS TIME. CALL LIGHT IN REACH.
[2023-05-31 19:40] VITALS: BP 107/67
--- NOTE | 2023-06-01 04:53 | NUR ---
SHIFT SUMMARY PT AWAKE AND ALERT SITTING IN HIS CHAIR AT SHIFT CHANGE. CONVERSATIONAL AND PLEASANT. NO C/O PAIN OR UNCOMFORTABILITY. ASKED FOR ASSISTANCE TO GET INTO BED APPROX. 0, WHERE HE SPENT THE REST OF HIS NIGHT SLEEPING PEACEFULLY.
[2023-06-01 07:38] VITALS: BP 114/75
[2023-06-01 15:01] LABS: SARS-Cov-2 (COVID-19) PCR, MMC NEGATIVE (NEGATIVE)
[2023-06-01 16:04] VITALS: BP 111/65
[2023-06-01] MEDS ORDERED: FOLI1 PO (16:53)
[2023-06-01] MEDS ORDERED: FERSU300 PO (16:53)
[2023-06-01] MEDS ORDERED: FURO20 PO (16:54)
[2023-06-01] MEDS ORDERED: MELA3 PO (16:54)
[2023-06-01] MEDS ORDERED: MICONAZOLE NITR85 GM TOP (16:56)
[2023-06-01] MEDS ORDERED: OLAN10 PO ×2 (16:57→16:58)
[2023-06-01] MEDS ORDERED: Naltrexone HCl50 MG PO (16:57)
[2023-06-01] MEDS ORDERED: LIQUACEL PO (16:58)
[2023-06-01] MEDS ORDERED: ALDACTONE25 MG PO (16:59)
[2023-06-01] MEDS ORDERED: VITAMIN B PO (16:59)
[2023-06-01] MEDS ORDERED: TRAZ50 PO (17:00)
--- NOTE | 2023-06-01 17:16 | NUR ---
PT DISCHARGED THE PT WAS DC'D TO [facility] VIA WHEELCHAIR ACCOMPANIED BY [facility] AND HIS FAMILY. REPORT WAS CALLED TO ACCEPTING RN AT [facility]. BELONGINGS RELEASED TO THE PATIENTS FAMILY
== END 2023-06-01 17:07 | DRG 871 ==
LOC: ER 12:28 → ERHOLD 17:45 → MEDS 17:45 → PCU 04-22 18:06 → MEDS 04-28 14:48
PROVIDERS: Emergency Medicine; Family Medicine; Student in an Organized Health Care Education/Training Program; ADMIT Internal Medicine
PROC: HZ2ZZZZ Detoxification Services for Substance Abuse Treatment (ICD-10-PCS; 2023-04-20)
PROC: 3E03329 Introduction of Other Anti-infective into Peripheral Vein, Percutaneous Approach (ICD-10-PCS; principal; 2023-04-30)
PROC: 5A09357 Assistance with Respiratory Ventilation, Less than 24 Consecutive Hours, Continuous Positive Airway Pressure (ICD-10-PCS; 2023-05-12)
PROC: 30233N1 Transfusion of Nonautologous Red Blood Cells into Peripheral Vein, Percutaneous Approach (ICD-10-PCS; 2023-05-28)
DX: A41.9 Sepsis, unspecified organism (principal); G93.41 Metabolic encephalopathy; N39.0 Urinary tract infection, site not specified; F10.288 Alcohol dependence with other alcohol-induced disorder; G72.1 Alcoholic myopathy; E46 Unspecified protein-calorie malnutrition; E87.1 Hypo-osmolality and hyponatremia; F10.231 Alcohol dependence with withdrawal delirium; F10.232 Alcohol dependence with withdrawal with perceptual disturbance; E11.9 Type 2 diabetes mellitus without complications; D63.8 Anemia in other chronic diseases classified elsewhere; E73.8 Other lactose intolerance; G47.33 Obstructive sleep apnea (adult) (pediatric); I10 Essential (primary) hypertension; R65.20 Severe sepsis without septic shock; F17.220 Nicotine dependence, chewing tobacco, uncomplicated; E88.09 Other disorders of plasma-protein metabolism, not elsewhere classified; Y90.0 Blood alcohol level of less than 20 mg/100 ml; E83.42 Hypomagnesemia; E83.39 Other disorders of phosphorus metabolism; E66.9 Obesity, unspecified; R13.10 Dysphagia, unspecified; K70.30 Alcoholic cirrhosis of liver without ascites; G47.00 Insomnia, unspecified; L71.9 Rosacea, unspecified; I95.9 Hypotension, unspecified; D69.6 Thrombocytopenia, unspecified; K59.00 Constipation, unspecified; E87.6 Hypokalemia; Z87.11 Personal history of peptic ulcer disease; Z96.641 Presence of right artificial hip joint; Z68.34 Body mass index [BMI] 34.0-34.9, adult; Z11.52 Encounter for screening for COVID-19
CPT/HCPCS: 36415; 51798; 71045; 74230; 80048; 80053; 81001; 82140; 82248; 82607; 82728; 82746; 82803; 82947; 83090; 83540; 83550; 83605; 83735; 84100; 84132; 84443; 85014; 85018; 85025; 85045; 85610; 86850; 86900; 86901; 86923; 87040; 87077; 87086; 87186; 87507; 92526; 92610; 92611; 93005; 93010; 94660; 94760; 94762; 96365; 96366; 96368; 96375; 97110; 97110-CQ; 97112; 97116; 97116-CQ; 97129; 97130; 97162; 97164; 97166; 97530; 97535; 99285-25; A9270; C9113; J0696; J1630; J1650; J1940; J2060; J2405; J3411; J3475; J3480; J7030; J7040; J7042; J7050; J7060; J7120; P9016; P9047; U0002

== ENCOUNTER 2024-04-24 21:46 | Emergency (ER) | payer OTHER ==
[~2024-04-24] VITALS: Ht 182.9 cm; Wt 88.5 kg
[~2024-04-24 21:46] MED LIST changes: +ALDACTONE25 MG PO; +Colace100 MG PO; +DULCOLAX400 MG/5 M PO; +FERSU300 PO; +FOLI1 PO; +GABA300 PO; +KETO15TC TOP; +LIQUACEL PO; +MELA3 PO; +MICONAZOLE NITR85 GM TOP; +Naltrexone HCl50 MG PO; +OFLOXACIN5 M9 BOTHEYES; +OLAN10 PO; +SENN187 PO; +TRAZ50 PO; +VITAMIN B PO; +ZINCTRAL57 GM TOP
[2024-04-24] MEDS ORDERED: Ondansetron HCl 2 MG / ML 2ML Vial IV ONE (22:00)
[2024-04-24 22:06] LABS: BASOPHILS ABSOLUTE AUTO 0.02 K/mm3 (0.00-0.23); BASOPHILS PERCENT AUTO 0 % (0-2); EOSINOPHILS ABSOLUTE AUTO 0.04 K/mm3 (0.00-0.68); EOSINOPHILS PERCENT AUTO 1 % (0-6); Hemoglobin 14.3 g/dL (13.5-17.5); IMMATURE GRAN ABSOLUTE AUTO 0.04 K/mm3 (0.00-0.10); IMMATURE GRAN PERCENT AUTO 1 % (0-1); LYMPHOCYTES PERCENT AUTO 10 % (21-46); MONOCYTES PERCENT AUTO 10 % (4-13); Mean Corpuscular HGB 27.9 pg (26.0-34.0); Mean Corpuscular Volume 82 fL (80-100); NEUTROPHILS ABSOLUTE AUTO 4.03 K/mm3 (1.96-9.15); NEUTROPHILS PERCENT AUTO 79 % (41-73); Platelet Count 78 K/mm3 (150-400); RDW Coefficient Variation 16.4 % (11.7-14.2); RDW Standard Deviation 48.7 fL (35.1-46.3); Red Blood Cell Count 5.13 M/mm3 (4.30-5.90); White Blood Cell Count 5.13 K/mm3 (4.00-11.30)
[2024-04-24 22:15] LABS: Albumin, Blood 3.9 g/dL (3.4-5.0); Albumin/Globulin Ratio 0.8 (0.8-1.8); Bilirubin, Total 2.3 mg/dL (0.1-1.0); Bun/Creatinine Ratio 16.5 (12.0-20.0); Calcium, Blood 9.7 mg/dL (8.5-10.1); Creatinine, Blood 0.73 mg/dL (0.60-1.20); Globulin, Blood 4.6 g/dL (2.2-4.0); Potassium, Blood 4.8 mmol/L (3.5-5.5); Total Protein, Blood 8.5 g/dL (6.4-8.2)
[2024-04-24] MEDS ORDERED: LORazepam 2 MG/ML 1ML Injection IV ONE ×2 (22:20→23:20)
[2024-04-24] MEDS ORDERED: NS 1,000 ML IV SCH (23:30)
[2024-04-24] MEDS ORDERED: Thiamine HCl 100 MG Tab PO ONE (23:30)
[2024-04-24] MEDS ORDERED: Multivitamins 1 Tab PO ONE (23:40)
[2024-04-24] MEDS ORDERED: CHLO25 PO (23:54)
[2024-04-24] MEDS ORDERED: ONDA4ODT MM (23:54)
[2024-04-25] MEDS ORDERED: Ibuprofen 600 MG Tab PO ONE (00:10)
[2024-04-25] MEDS ORDERED: ChlordiazePOXIDE 25 MG Cap PO ONE (02:30)
[2024-04-25] MEDS ORDERED: NS 1,000 ML IV SCH (10:35)
[2024-04-25 13:55] VITALS: BP 191/117
== END 2024-04-25 13:56 | disposition home or self-care (01) ==
LOC: ER 21:46
PROVIDERS: Student in an Organized Health Care Education/Training Program
DX: F10.929 Alcohol use, unspecified with intoxication, unspecified (principal); D69.6 Thrombocytopenia, unspecified; R74.01 Elevation of levels of liver transaminase levels; R26.9 Unspecified abnormalities of gait and mobility; I10 Essential (primary) hypertension; E11.9 Type 2 diabetes mellitus without complications; E03.9 Hypothyroidism, unspecified; F17.220 Nicotine dependence, chewing tobacco, uncomplicated
CPT/HCPCS: 80053; 82947; 85025; 96374; 96375; 96376; 99285-25; A9270; J2060; J2405; J7030

== ENCOUNTER 2024-08-29 02:36 | Inpatient (IN) | payer OTHER ==
[~2024-08-29] VITALS: Ht 182.9 cm; Wt 96.8 kg
[~2024-08-29 02:36] MED LIST changes: +CHLO25 PO; +ONDA4ODT MM
[2024-08-29] MEDS ORDERED: Ondansetron HCl 2 MG / ML 2ML Vial IV ONE (04:30)
[2024-08-29] MEDS ORDERED: NS 1,000 ML IV SCH ×4 (04:30→09:20)
[2024-08-29 04:34] LABS: BASOPHILS ABSOLUTE AUTO 0.01 K/mm3 (0.00-0.23); BASOPHILS PERCENT AUTO 0 % (0-2); EOSINOPHILS PERCENT AUTO 0 % (0-6); Hematocrit 41.4 % (37.0-53.0); Hemoglobin 14.3 g/dL (13.5-17.5); IMMATURE GRAN PERCENT AUTO 1 % (0-1); LYMPHOCYTES ABSOLUTE AUTO 0.26 K/mm3 (0.84-5.20); LYMPHOCYTES PERCENT AUTO 2 % (21-46); MONOCYTES ABSOLUTE AUTO 1.04 K/mm3 (0.16-1.47); MONOCYTES PERCENT AUTO 7 % (4-13); Mean Corpuscular HGB 30.8 pg (26.0-34.0); Mean Corpuscular HGB Conc 34.5 g/dL (31.5-36.5); Mean Corpuscular Volume 89 fL (80-100); Mean Platelet Volume 9.6 fL (9.1-12.4); NEUTROPHILS PERCENT AUTO 90 % (41-73); Platelet Count 90 K/mm3 (150-400); RDW Coefficient Variation 16.3 % (11.7-14.2); RDW Standard Deviation 53.1 fL (35.1-46.3); Red Blood Cell Count 4.65 M/mm3 (4.30-5.90); White Blood Cell Count 14.01 K/mm3 (4.00-11.30)
[2024-08-29 05:00] LABS: Alanine Aminotransfer (ALT/SGP 84 U/L (12-78); Albumin, Blood 3.7 g/dL (3.4-5.0); Albumin/Globulin Ratio 0.8 (0.8-1.8); Alk Phos 126 U/L (50-136); Anion Gap 18 mmol/L (3-11); Aspartate Aminotrans (AST/SGOT 156 U/L (12-37); Bilirubin, Total 3.1 mg/dL (0.1-1.0); Blood Urea Nitrogen 12 mg/dL (8-24); Bun/Creatinine Ratio 17.4 (12.0-20.0); CO2, Blood 22 mmol/L (21-32); Calcium, Blood 8.5 mg/dL (8.5-10.1); Chloride, Blood 87 mmol/L (98-108); Creatinine, Blood 0.69 mg/dL (0.60-1.20); Ethanol (Alcohol), Blood, Med <3 mg/dL; Globulin, Blood 4.6 g/dL (2.2-4.0); Glomerular Filtration Rate 111 (60-); Glucose, Blood 148 mg/dL (70-99); Potassium, Blood 4.7 mmol/L (3.5-5.5); Sodium, Blood 122 mmol/L (136-145); Total Protein, Blood 8.3 g/dL (6.4-8.2)
[2024-08-29 05:03] LABS: Source, Urine Clean Catch
[2024-08-29 05:07] LABS: Appearance, Urine Clear (Clear); Blood, Urine 4+ (Neg); Color, Urine Amber (P-Yellow); Glucose Qualitative, Urine 3+ (Neg); Ketones, Urine 4+ (Neg); Leukocyte Esterase, Urine 1+ (Neg); Nitrite, Urine Pos (Neg); Protein, Urine 4+ (Neg); Urobilinogen, Urine 2+ (Normal)
[2024-08-29 05:21] LABS: CORONAVIRUS COVID-19 AG Negative (NEGATIVE); INFLUENZA A AG Negative (NEGATIVE); INFLUENZA B AG Negative (NEGATIVE)
[2024-08-29 05:25] LABS: Bilirubin, Urine 2+ (Neg)
[2024-08-29 05:26] LABS: Mucus Light (0-Heavy); Squamous Epithelial Cells Rare /hpf (Few)
[2024-08-29 05:27] LABS: Bacteria Few /hpf; White Blood Cells, Urine 0-2 /hpf (0-5)
[2024-08-29] MEDS ORDERED: CefTRIAXone Sodium 2,000 MG in NS 100 ML IV ONE (05:45)
[2024-08-29] MEDS ORDERED: Acetaminophen 500 MG Tab PO ONE (06:35)
[2024-08-29 07:50] LABS: International Normalized Ratio 1.07; Prothrombin Time Results 11.4 Sec (9.7-11.5)
[2024-08-29] MEDS ORDERED: LORazepam 2 MG/ML 1ML Injection IV PRN (09:15)
[2024-08-29] MEDS ORDERED: Prochlorperazine Edisylate 10 mg Vial IV PRN (09:20)
[2024-08-29] MEDS ORDERED: Azithromycin 250 MG Tab PO SCH (10:00)
[2024-08-29] MEDS ORDERED: Thiamine HCl 500 MG in NS 100 ML IV SCH (16:00)
[2024-08-29 16:29] VITALS: BP 145/88
[2024-08-29] MEDS ORDERED: PRILOSEC OTC20 MG PO (16:37)
--- NOTE | 2024-08-29 18:03 | NUR ---
PT ADMITTED TO UNIT AT APPROX 1615 FROM ER. PT AWAKE AND ALERT, DISORIENTED TO TIME OF DAY AND YEAR. PT REPORTS WEAKNESS AND NOT WALKING FOR A COUPLE WEEKS. PT SLID TO HOSPITAL BED FROM [facility] USING SLIDE SHEET. PT REPORTS PAIN TO L SHOULDER - LARGE BRUISE TO AREA, PT UNSURE HOW HE OBTAINED BRUISE. SCATTERED MARKINGS ON SKIN - SEE ADMISSION ASSESSMENT, 2 RN CHECK COMPLETED. PT ORIENTED TO ROOM/CALL SYSTEM AND FALL PREVENTION/SAFETY. NORMAL SALINE CONTINUOUS @ 100 ML/HR STARTED, WELL THIAMINE. WATER AND SANDWICH PROVIDER - NO ISSURES SWALLOWING NOTED. TELE IN PLACE - SR @ 100. CIWA 5, NOT MEDICATED AT THIS TIME. ADMISSION COMPLETED INCLUDING MED REC.
--- NOTE | 2024-08-29 18:42 | NUR ---
PT REQUESTED THIS RN CONTACT HIS PARENTS AND PROVIDE UPDATE, THIS RN FOUND PT'S FATHER'S PHONE NUMBER IN PT CHART. IRVING ANSWERED PHONE, PT MOTHER ALSO PRESENT DURING PHONE CALL. UPDATE PROVIDED - THANKFUL FOR CALL. UPDATE FAMILY FOR ANY CONCERNS OR NEEDS.
[2024-08-29 19:29] VITALS: BP 123/80
[2024-08-29] MEDS ORDERED: Famotidine 20 MG Tab PO SCH (21:00)
[2024-08-29] MEDS ORDERED: Docusate Sodium 100 MG Cap PO SCH (21:00)
--- NOTE | 2024-08-29 21:02 | NUR ---
NEW T-ORDER FROM THE ON-CALL HOSPITALIST DR. COLLIER: TORADOL 15MG IV Q8HRS PRN, MAX 4 DOSES. ENTERED TO [employer], SEE EMAR.
[2024-08-29] MEDS ORDERED: Ketorolac Tromethamine 15mg Vial IV PRN (21:05)
[2024-08-29 23:36] VITALS: BP 161/96
[2024-08-30] VITALS (36 sets, daily range): BP systolic 162–202; BP diastolic 88–156
[2024-08-30] MEDS ORDERED: Metoprolol Succinate 25 MG TABCR PO ONE (00:50)
--- NOTE | 2024-08-30 02:49 | NUR ---
SHIFT SUMMARY NO ACUTE EVENTS/DISTRESS DURING THIS SHIFT. MEDICATED Q2HRS WITH ATIVAN 2MG PER EMAR AND CIWA PROTOCOL. CIWA SCORES Q4HRS AND PRN COMPLETED. SCORES BETWEEN 8-12 R/T TREMORS, ORIENTATION, AGITATION, ANXIETY, TREMORS AND SENSITIVITY TO SOUND. NS INFUSING @100MLS/HR ORDERED. ONE TIME ORDER OF METOPROLOL 25MG RECEIVED FROM THE ON-CALL HOSPITALIST D/T PT'S BP&PULSE ELEVATED. PT ALSO HAS A NEW ORDER OF METOPROLOL 25MG QD. PT IS ON BEDREST AND IS CONTINENT/INCONTINENT OF LIQUID BROWN STOOL. BED GARCÍA USED, ATTENDS IN PLACE. PT REPORTS 9/10 LEFT SHOULDER PAIN, NEW ORDER FOR TORADOL 15MG Q6 X4 DOSES TOTAL, RECEIVED FROM THE ON-CALL HOSPITALIST. ONE DOSE ADMINISTERED, INEFFECTIVE PER PT REPORT. PT HAS A LIMITED ROM ON LEFT SHOULDER. NOTED BRUISED POSTERIOR LEFT SHOULDER. PT IS A/O X2-3, ABLE TO MAKE HIS NEEDS KNOWN AND COOPERATIVE WITH CARE. PT REPORTS LESS OF THE WITHDRAWAL SX TODAY COMPARED TO HIS LAST ADMISSION. PT STATES " I WAS SEEING CAREBEARS ALL OVER THE ROOM" DURING THE ADMISSION. BED AT THE LOWEST POSITION, CALL LIGHT W/I REACH.
[2024-08-30] MEDS ORDERED: NS 250 ML IV PRN (03:40)
[2024-08-30] MEDS ORDERED: Metoprolol Succinate 25 MG TABCR PO SCH (09:00)
[2024-08-30] MEDS ORDERED: CefTRIAXone Sodium 2,000 MG in NS 100 ML IV SCH (09:00)
[2024-08-30] MEDS ORDERED: Enoxaparin 40 MG/0.4 ML SYR SC SCH (09:00)
[2024-08-30 09:06] LABS: BASOPHILS ABSOLUTE AUTO 0.03 K/mm3 (0.00-0.23); BASOPHILS PERCENT AUTO 0 % (0-2); EOSINOPHILS ABSOLUTE AUTO 0.06 K/mm3 (0.00-0.68); EOSINOPHILS PERCENT AUTO 1 % (0-6); Hematocrit 33.6 % (37.0-53.0); Hemoglobin 11.4 g/dL (13.5-17.5); IMMATURE GRAN ABSOLUTE AUTO 0.06 K/mm3 (0.00-0.10); IMMATURE GRAN PERCENT AUTO 1 % (0-1); LYMPHOCYTES ABSOLUTE AUTO 0.62 K/mm3 (0.84-5.20); LYMPHOCYTES PERCENT AUTO 6 % (21-46); MONOCYTES ABSOLUTE AUTO 1.18 K/mm3 (0.16-1.47); MONOCYTES PERCENT AUTO 11 % (4-13); Mean Corpuscular HGB 31.5 pg (26.0-34.0); Mean Corpuscular HGB Conc 33.9 g/dL (31.5-36.5); Mean Corpuscular Volume 93 fL (80-100); NEUTROPHILS PERCENT AUTO 82 % (41-73); Platelet Count 81 K/mm3 (150-400); RDW Coefficient Variation 15.9 % (11.7-14.2); RDW Standard Deviation 54.5 fL (35.1-46.3); Red Blood Cell Count 3.62 M/mm3 (4.30-5.90); White Blood Cell Count 10.65 K/mm3 (4.00-11.30)
[2024-08-30 09:26] LABS: Albumin, Blood 3.5 g/dL (3.4-5.0); Bilirubin, Total 1.8 mg/dL (0.1-1.0); Bun/Creatinine Ratio 22.9 (12.0-20.0); Calcium, Blood 8.6 mg/dL (8.5-10.1); Creatinine, Blood 0.79 mg/dL (0.60-1.20); Globulin, Blood 3.5 g/dL (2.2-4.0); Magnesium, Blood 2.2 mg/dL (1.6-2.4); Phosphorus, Blood 2.6 mg/dL (2.5-4.9); Potassium, Blood 3.3 mmol/L (3.5-5.5)
[2024-08-30] MEDS ORDERED: Potassium Chloride 20 MEQ TabCR PO ONE (10:45)
[2024-08-30] MEDS ORDERED: LORazepam 1 MG Tab PO PRN (11:30)
[2024-08-30] MEDS ORDERED: Losartan Potassium 25 MG Tab PO SCH (13:00)
--- NOTE | 2024-08-30 13:23 | NUR ---
INORGANIC CHEMISTRY TEACHER INFORMED ME THAT PT TRIED TO EAT HIS TELE WIRES THINKING THEY WERE SPAGHETTI. PT IS NOW ORIENTED TO SELF ONLY WITH AUDITORY AND VISUAL HALLUCINATIONS. SITTER AT BEDSIDE. PT CONTINUOUSLY GETTING OUT OF BED/CHAIR, UNSTEADY ON FEET. PT REMOVING TELE STICKERS AND ATTEMPTING TO PULL IV OUT. THIS RN HAS ATTEMPTED NUMEROUS TIMES TO REORIENT PT, WITH LITTLE EFFECT. HIGHEST CIWA 24.
[2024-08-30] MEDS ORDERED: dexmedeTOMIDine 100 ML IV PRN (13:40)
--- NOTE | 2024-08-30 15:53 | NUR ---
TRANSFER NOTE: PT TRANSFERRED TO ICU FROM MED FLOOR AT 1408. PT GOING THROUGH ALCOHOL WITHDRAWLS AND REQUIRES A PRECEDEX DRIP; SEE FLOWSHEET FOR TITRATIONS. UPON ARRIVAL PT IS A&O X1 TO SELF, ABLE TO FOLLOW COMMANDS AND IS REDIRECTABLE BUT WILL START TO RAMBLE ABOUT DIFFERENT TOPICS AND WANTS TO LEAVE. PT DOES HAVE A SITTER, THE PT IS CONTINUOUSLY TRYING TO GET OUT OF BED AND VERY ANXIOUS. INITIAL CIWA SCORE OF 18. THEY ARE IN SINUS TACH WITH SYSTOLIC BP 160'S MAP>65, HR 100-120'S. LUNG SOUNDS ARE CLEAR AND EQUAL BILATERALLY. NO COMPLAINTS OF SOB OR CHEST PAIN AT THIS TIME; ON RA. PT DOES HAVE PERIPHERAL IV'S IN R AND L ARM. THEY ARE ABLE TO USE THE URINAL WITH ASSISTANCE. THEY ARE HAVING 3/10 L SHOULDER PAIN, THERE IS A LARGE BRUISE ON THE L UPPER ARM/SHOULDER, THE PT DOESN'T NOT RECALL HOW THEY GOT THE BRUISE.
[2024-08-30] MEDS ORDERED: LORazepam 2 MG/ML 1ML Injection IV PRN (16:05)
--- NOTE | 2024-08-30 18:33 | NUR ---
SHIFT SUMMARY: PT IS DOING WELL AND RESTING IN BED. PRECEDEX DRIP @ 1.3MCG/KG/HR. THEY ARE AROUSABLE AND ABLE TO FOLLOW COMMANDS AND THEY HAVE A 1:1 SITTER. CIWA SCORE-19. WHEN AWAKE THEY WILL TRY TO GET OUT OF BED BUT THEY ARE REDIRECTABLE. THEY HAVE BEEN IN SINUS RYTHM WITH SYSTOLIC BP 150-170'S MAP>65 AND HR 90-110'S. PERIPHERAL IV'S IN RAC AND L FOREARM. LUNG SOUNDS ARE CLEAR AND EQUAL BILATERALLY, SPO2 >94%. ABLE TO USE THE URINAL WITH ASSISTANCE. LINES AND CORDS PLACED OUT OF THE WAY. CALL LIGHT PLACED WITH IN REACH.
[2024-08-30] MEDS ORDERED: Labetalol HCL 5 MG/ML 4ML Injection (Single Dose) IV PRN (19:00)
[2024-08-30] MEDS ORDERED: HydrALAZINE HCl 25 MG Tab PO PRN (22:00)
[2024-08-31] VITALS (36 sets, daily range): BP systolic 125–215; BP diastolic 53–159
[2024-08-31 03:49] LABS: BASOPHILS ABSOLUTE AUTO 0.05 K/mm3 (0.00-0.23); BASOPHILS PERCENT AUTO 1 % (0-2); EOSINOPHILS ABSOLUTE AUTO 0.11 K/mm3 (0.00-0.68); EOSINOPHILS PERCENT AUTO 2 % (0-6); Hematocrit 31.7 % (37.0-53.0); Hemoglobin 10.8 g/dL (13.5-17.5); IMMATURE GRAN ABSOLUTE AUTO 0.03 K/mm3 (0.00-0.10); IMMATURE GRAN PERCENT AUTO 1 % (0-1); LYMPHOCYTES ABSOLUTE AUTO 0.64 K/mm3 (0.84-5.20); LYMPHOCYTES PERCENT AUTO 10 % (21-46); MONOCYTES ABSOLUTE AUTO 0.82 K/mm3 (0.16-1.47); MONOCYTES PERCENT AUTO 13 % (4-13); Mean Corpuscular HGB 30.9 pg (26.0-34.0); Mean Corpuscular HGB Conc 34.1 g/dL (31.5-36.5); Mean Corpuscular Volume 91 fL (80-100); Mean Platelet Volume 9.5 fL (9.1-12.4); NEUTROPHILS ABSOLUTE AUTO 4.68 K/mm3 (1.96-9.15); NEUTROPHILS PERCENT AUTO 74 % (41-73); Platelet Count 66 K/mm3 (150-400); RDW Coefficient Variation 15.6 % (11.7-14.2); RDW Standard Deviation 51.6 fL (35.1-46.3); White Blood Cell Count 6.33 K/mm3 (4.00-11.30)
[2024-08-31 04:10] LABS: Calcium, Blood 8.6 mg/dL (8.5-10.1); Creatinine, Blood 0.71 mg/dL (0.60-1.20); Magnesium, Blood 1.9 mg/dL (1.6-2.4); Phosphorus, Blood 3.1 mg/dL (2.5-4.9); Potassium, Blood 3.6 mmol/L (3.5-5.5)
--- NOTE | 2024-08-31 06:05 | NUR ---
SHIFT SUMMARY: PATIENT IS ALERT TO SELF BUT OTHERWISE CONFUSED ON TIME, PLACE AND SITUATION. ABC'S ARE INTACT. VS ARE OTHERWISE STABLE, HOWEVER THE PATIENT HAS HAD PERSISTENT HYPERTENSION DESPITE MULTIPLE ROUNDS OF PRN MEDICATIONS TO HELP RESOLVE THE ISSUE. MD WAS MADE AWARE AND UPDATED WITH THIS INFORMATION. PATIENT REMAINED IN BED THROUGHOUT THE EVENING, IS ABLE TO ASSIST IN TURNS, AND HAS INTACT EXTREMITIES X4. ON ROOM AIR WITH CLEAR OVER DIMINISHED LS. MONTIOR SHOWS ST WITH A RATE HOLDING BETWEEN 90-105 BPM. ABD IS SNT, ACTIVE BT'S AND ON A C.C. DIET. VOIDS WITH INTERMITTENT INCONTINENCE. CURRENTLY HAS AN EXTERNAL PUREWICK IN PLACE WITH ADEQUATE UOP. LARGE DEEP PURPLE BRUISE ON THE LEFT SHOULDER THAT TRAVELS DOWN TO THE ELBOW. B/L AC PIV'S REMAIN INTACT AND PATENT. NO COMPLAINTS ON PAIN OR DISCOMFORT. NO COMPLAINTS OF SOA OR CP. SEE CHART FOR DETAILS AND TRENDING CIWA ASSESSMENT.
--- NOTE | 2024-08-31 10:12 | NUR ---
THIS RN ASSUMED CARE OF PT AT 0700. PT IS CONFUSED ABOUT PLACE AND DATE BUT VERY REDIRECTABLE AND HAS BEEN PLEASANT THIS MORNING, PT EATING BREAKFAST. PT HEART RATE IN THE 80s, BLOOD PRESSURE ON THE HIGHER END WITH SBP IN THE 180s, LOSARTAN WAS GIVEN WHICH HELPED WITH BLOOD PRESSURE, PT DENIES CHEST PAIN UPON ASSESSMENT. PT SOUNDS CLEAR/DIMINISHED, ON ROOM AIR SATTING >95%, PT DENIES SHORTNESS OF BREATHE. PT HAS MALE PUREWICK ON THAT IS DRAINING TO SUCTION. PRECEDEX HAS BEEN TURNED OFF SINCE 0800, WAS AT BEDSIDE AND WANTS TO KEEP PT IN ICU AND SEE HOW HE DOES, POSSIBLE STATUS CHANGE LATER TODAY. NO OTHER INTERVENTIONS AT THIS TIME. PLAN OF CARE CONTINUED.
[2024-08-31] MEDS ORDERED: Omeprazole 20 MG CapCR PO SCH (12:15)
[2024-08-31] MEDS ORDERED: CloNIDine 0.1 MG Tab PO PRN (18:10)
--- NOTE | 2024-08-31 18:17 | NUR ---
PT SUMMARY PT IS DOING MUCH BETTER TODAY, PRECEDEX WAS OFF AT 0800, AND PT WAS ABLE TO GET UP TODAY AND HAVE A BOWEL MOVEMENT. PT WOULD LIKE TO TALK TO CASE MANAGEMENT TOMORROW ABOUT PLANS FOR OUTSIDE THE HOSPITAL. BLOOD PRESSURE WAS GETTING ELEVATED TOWARDS END OF SHIFT, [facility] MEDICAL CODING TECHNICIAN WAS CALLED AND NEW ORDERS HAVE BEEN PLACED. NO OTHER INTERVENTIONS AT THIS TIME. PLAN OF CARE CONTINUED.
[2024-09-01] VITALS (20 sets, daily range): BP systolic 119–210; BP diastolic 74–106
[2024-09-01] MEDS ORDERED: Melatonin 3 MG Tab PO PRN (01:50)
--- NOTE | 2024-09-01 06:12 | NUR ---
SHIFT SUMMARY: NO SIGNIFICANT CHANGE OVERNIGHT. PT STILL EXHIBITING WITHDRAWAL SYMPTOMS BUT THEY ARE MORE MODERATE. PT HAS EXPRESSED A LOT OF CONCERN ABOUT LEAVING THE HOSPITAL AND RETURNING HOME, HE THINKS HE WOULD DO BETTER IN A CARE FACILITY. OTHERWISE PATIENT HAS NOT BEEN ANXIOUS TONIGHT PREVIOUS NIGHT. HE HAS BEEN COOPERATIVE AND PLEASANT. ABC'S WNL, NEUROLOGICALLY INTACT. PATIENT REMAINS HYPERTENSIVE DESPITE EFFORTS TO LOWER IT WITH MEDICATION. HE IS ASYMPTOMATIC IN RELATION TO BLOOD PRESSURE.
[2024-09-01] MEDS ORDERED: ChlordiazePOXIDE 10 MG Cap PO PRN (08:40)
--- NOTE | 2024-09-01 12:11 | NUR ---
REASSESSMENT PT HAS BEEN RESTING IN THE BED THIS MORNING OR SITTING IN THE CHAIR. HE IS ALERT AND ORIENTED, BUT SAYS HE IS STILL HAVING HALLUCINATIONS. CIWAA WAS 13 THIS MORNING, MEDICATED WITH LIBRIUM PER DR. HOWARD'S ORDERS. PT AND OT ORDERED WELL PT HAS HAD FALLS AT HOME AND HAD DIFFICULTY GETTING OOB. ONCE HE WAS OUT, HE WAS ABLE TO WALK AROUND THE UNIT WITH A WALKER AND NURSE. LUNGS ARE CLEAR, RA, SINUS TACH. STILL HYPERTENSIVE, DR. HOWARD AWARE, BUT NO NEW MEDS AT THIS TIME BECAUSE SBP WAS 120S THIS MORNING AFTER HIS MEDS. CURRENTLY SBP 160S. PUREWICK WAS LEAKING SO IT WAS REMOVED AND PT HAS BRIEF ON AND URINAL AT BEDSIDE.PT'S PARENTS VISITED AND WERE UPDATED. DR. HOWARD GAVE OK FOR PT TO BE MED, NO TELE STATUS.
[2024-09-02 04:51] VITALS: BP 193/109
[2024-09-02 05:15] LABS: Bun/Creatinine Ratio 17.4 (12.0-20.0); Calcium, Blood 8.6 mg/dL (8.5-10.1); Creatinine, Blood 0.75 mg/dL (0.60-1.20); Magnesium, Blood 1.8 mg/dL (1.6-2.4); Potassium, Blood 3.4 mmol/L (3.5-5.5)
--- NOTE | 2024-09-02 06:12 | NUR ---
SHIFT SUMMARY: NO SIGNIFICANT OVERNIGHT CHANGES. PT WAS ABLE TO SLEEP MOST OF THE NIGHT. STILL EXHIBITING SOME ANXIETY AND TREMULOUS BUT VERY PLEASANT AND COOPERATIVE AND LOW CIWA SCORES. BP WAS ELEVATED THIS AM, PRN MEDICATION PROVIDED. ABC'S AND NEUROS INTACT. PT HAS BEEN USING URINAL AND STANDING AT BEDSIDE WITH WALKER, UNASSISTED OTHERWISE.
[2024-09-02] MEDS ORDERED: Potassium Chloride 20 MEQ TabCR PO ONE (07:30)
[2024-09-02 08:29] VITALS: BP 164/102
[2024-09-02] MEDS ORDERED: Trimethoprim/Sulfamethoxazole DS Tab PO SCH (09:00)
--- NOTE | 2024-09-02 10:15 | NUR ---
[place] of Care: Care assumed at 0700hr. Patient alert and oriented x4. Calm and cooperative with staff. VSS, spO2 98% on RA. Independent throughout room, uses call light appropriately for needs. CIWA of 1 this morning with only a very mild tremor, not requiring medication intervention. Tolerating PO food and fluids without difficulty. Patient participated with OT, walking throughout unit without difficulty. Patient eager to go home. Call placed to Dr. Haddad to express patient's wishes. Dr. Haddad plans to see patient soon and most likely discharge home. Will continue to monitor.
[2024-09-02] MEDS ORDERED: Thiamine HCl 100 MG Tab PO SCH (12:00)
[2024-09-02] MEDS ORDERED: CHLO10 PO (12:12)
[2024-09-02] MEDS ORDERED: LOSA25 PO (12:14)
[2024-09-02] MEDS ORDERED: METO25ER PO (12:15)
[2024-09-02] MEDS ORDERED: SULTRIDS PO (12:16)
== END 2024-09-02 14:23 | disposition home or self-care (01) | DRG 896 ==
LOC: ER 02:36 → ICUE 09:16 → ERHOLD 09:16 → MEDS 16:13 → ICUE 08-30 13:48
PROVIDERS: Internal Medicine; Student in an Organized Health Care Education/Training Program; ADMIT Internal Medicine
PROC: HZ2ZZZZ Detoxification Services for Substance Abuse Treatment (ICD-10-PCS; principal; 2024-08-29)
DX: F10.131 Alcohol abuse with withdrawal delirium (principal); I21.A1 Myocardial infarction type 2; E87.1 Hypo-osmolality and hyponatremia; N39.0 Urinary tract infection, site not specified; E87.6 Hypokalemia; Y90.0 Blood alcohol level of less than 20 mg/100 ml; D63.8 Anemia in other chronic diseases classified elsewhere; M19.90 Unspecified osteoarthritis, unspecified site; K21.9 Gastro-esophageal reflux disease without esophagitis; G62.1 Alcoholic polyneuropathy; E11.9 Type 2 diabetes mellitus without complications; Z87.19 Personal history of other diseases of the digestive system; E11.42 Type 2 diabetes mellitus with diabetic polyneuropathy; Z87.81 Personal history of (healed) traumatic fracture; Z98.890 Other specified postprocedural states; F17.220 Nicotine dependence, chewing tobacco, uncomplicated
CPT/HCPCS: 36415; 71045; 73030; 80048; 80053; 80320; 81001; 82947; 83605; 83690; 83735; 84100; 84145; 84484; 85025; 85610; 85730; 87040; 87077; 87086; 87186; 87428-QW; 93005; 93010; 94762; 96361; 96365; 96375; 97116; 97161; 97165; 97530; 97535; 99285-25; A9270; J0696; J1650; J1885; J2060; J2405; J3411; J7030

== ENCOUNTER 2024-12-14 21:52 | Inpatient (IN) | payer OTHER ==
[~2024-12-14] VITALS: Ht 182.9 cm; Wt 100.9 kg
[~2024-12-14 21:52] MED LIST changes: +CHLO10 PO; +LOSA25 PO; +METO25ER PO; +PRILOSEC OTC20 MG PO; +SULTRIDS PO
[2024-12-14 22:28] LABS: BASOPHILS ABSOLUTE AUTO 0.04 K/mm3 (0.00-0.23); BASOPHILS PERCENT AUTO 0 % (0-2); EOSINOPHILS ABSOLUTE AUTO 0.00 K/mm3 (0.00-0.68); EOSINOPHILS PERCENT AUTO 0 % (0-6); Hematocrit 35.1 % (37.0-53.0); Hemoglobin 11.3 g/dL (13.5-17.5); IMMATURE GRAN ABSOLUTE AUTO 0.10 K/mm3 (0.00-0.10); IMMATURE GRAN PERCENT AUTO 1 % (0-1); LYMPHOCYTES ABSOLUTE AUTO 0.42 K/mm3 (0.84-5.20); LYMPHOCYTES PERCENT AUTO 3 % (21-46); MONOCYTES ABSOLUTE AUTO 0.95 K/mm3 (0.16-1.47); MONOCYTES PERCENT AUTO 8 % (4-13); Mean Corpuscular HGB Conc 32.2 g/dL (31.5-36.5); Mean Corpuscular Volume 86 fL (80-100); NEUTROPHILS ABSOLUTE AUTO 11.03 K/mm3 (1.96-9.15); NEUTROPHILS PERCENT AUTO 88 % (41-73); NRBC ABSOLUTE 0.00 K/mm3 (0.00-0.02); NRBC Auto 0.0 /100 WBC (0.0-0.2); Platelet Count 100 K/mm3 (150-400); RDW Coefficient Variation 15.4 % (11.7-14.2); RDW Standard Deviation 47.2 fL (35.1-46.3)
[2024-12-14 22:41] LABS: Prothrombin Time Results 11.9 Sec (9.7-11.5)
[2024-12-14 22:43] LABS: Ethanol (Alcohol), Blood, Med 4.0 mg/dL
[2024-12-14 22:44] LABS: Alanine Aminotransfer (ALT/SGP 48.0 U/L (12-78); Albumin, Blood 3.7 g/dL (3.4-5.0); Albumin/Globulin Ratio 0.8 (0.8-1.8); Anion Gap 18.0 mmol/L (3-11); Aspartate Aminotrans (AST/SGOT 110.0 U/L (12-37); Bilirubin, Total 1.9 mg/dL (0.1-1.0); Blood Urea Nitrogen 11.0 mg/dL (8-24); CO2, Blood 18.0 mmol/L (21-32); Calcium, Blood 8.7 mg/dL (8.5-10.1); Chloride, Blood 100.0 mmol/L (98-108); Creatinine, Blood 0.85 mg/dL (0.60-1.20); Globulin, Blood 4.5 g/dL (2.2-4.0); Glucose, Blood 170.0 mg/dL (70-99); Potassium, Blood 4.2 mmol/L (3.5-5.5); Sodium, Blood 132.0 mmol/L (136-145); Total Protein, Blood 8.2 g/dL (6.4-8.2)
[2024-12-15] VITALS (61 sets, daily range): BP systolic 102–180; BP diastolic 50–99
[2024-12-15] MEDS ORDERED: Diazepam 5 MG / ML 2ML SYR IV ONE (02:15)
[2024-12-15] MEDS ORDERED: Ondansetron HCl 2 MG / ML 2ML Vial IV PRN (03:15)
[2024-12-15] MEDS ORDERED: HydrALAZINE HCl 20 MG / ML 1ML Vial IV PRN (03:20)
[2024-12-15] MEDS ORDERED: Diazepam 5 MG / ML 2ML SYR IV PRN (03:20)
[2024-12-15 03:46] LABS: Magnesium, Blood 1.8 mg/dL (1.6-2.4)
[2024-12-15 03:58] LABS: Source, Urine Clean Catch
[2024-12-15] MEDS ORDERED: NS 1,000 ML IV SCH ×2 (04:00→12:00)
[2024-12-15] MEDS ORDERED: Pantoprazole Sodium 40 MG Injection IV ONE (04:00)
[2024-12-15 04:01] LABS: Bilirubin, Urine Neg (Neg); Glucose Qualitative, Urine Neg (Neg); Ketones, Urine 3+ (Neg); Leukocyte Esterase, Urine 1+ (Neg); Protein, Urine 2+ (Neg); Specific Gravity, Urine 1.010 (1.003-1.022); Urobilinogen, Urine 1+ (Normal)
[2024-12-15] MEDS ORDERED: CefTRIAXone Sodium 1,000 MG in NS 100 ML IV SCH (04:04)
[2024-12-15 04:23] LABS: Color, Urine Yellow (P-Yellow)
[2024-12-15 04:24] LABS: Red Blood Cells, Urine Not Seen /hpf (0-2)
[2024-12-15 04:25] LABS: Ferritin, Serum 84.0 ng/mL (26-388)
[2024-12-15 04:31] LABS: Total Iron Binding Capacity 450.0 ug/dL (250-450)
[2024-12-15] MEDS ORDERED: MELATONIN5 M1 PO (04:44)
[2024-12-15 06:00] LABS: BASOPHILS ABSOLUTE AUTO 0.02 K/mm3 (0.00-0.23); BASOPHILS PERCENT AUTO 0 % (0-2); EOSINOPHILS ABSOLUTE AUTO 0.00 K/mm3 (0.00-0.68); EOSINOPHILS PERCENT AUTO 0 % (0-6); Hematocrit 28.8 % (37.0-53.0); Hemoglobin 9.4 g/dL (13.5-17.5); IMMATURE GRAN ABSOLUTE AUTO 0.04 K/mm3 (0.00-0.10); IMMATURE GRAN PERCENT AUTO 1 % (0-1); LYMPHOCYTES ABSOLUTE AUTO 0.36 K/mm3 (0.84-5.20); LYMPHOCYTES PERCENT AUTO 7 % (21-46); MONOCYTES ABSOLUTE AUTO 0.68 K/mm3 (0.16-1.47); MONOCYTES PERCENT AUTO 12 % (4-13); Mean Corpuscular HGB Conc 32.6 g/dL (31.5-36.5); Mean Corpuscular Volume 85 fL (80-100); NEUTROPHILS ABSOLUTE AUTO 4.37 K/mm3 (1.96-9.15); NEUTROPHILS PERCENT AUTO 80 % (41-73); NRBC ABSOLUTE 0.00 K/mm3 (0.00-0.02); NRBC Auto 0.0 /100 WBC (0.0-0.2); Platelet Count 51 K/mm3 (150-400); RDW Coefficient Variation 15.3 % (11.7-14.2); RDW Standard Deviation 46.1 fL (35.1-46.3)
--- NOTE | 2024-12-15 06:08 | NUR ---
ER ADMIT TO ICU 7/SHIFT SUMMARY: PT ARRIVES FROM ER @ APPROX 0400; PT TRANSFERRED OVER FROM ER GURNEY TO ICE BED WITH SLIDDER SHEET. PT A&O X 4, PLEASANT AND COOPERATIVE WITH CARE. PT STATES LAST DRINK WAS THURSDAY 8/12 PM AND MOST CURRENT CIWA IS 21; PT MEDICATED WITH 50 MG LIBRIUM AT THIS TIME. PT ON RA, LUNGS CLEAR T/O AND DENIES SOB. SR ON MONITOR WITH HR 90'S, SBP 140-160'S, AND DENIES CHEST PAIN/PRESSURE AT THIS TIME. PT HAS TENDERNESS TO RLQ UPON PALPATION. MODERATE AMOUNT OF SCARRING OVER ABD. DUE TO EXTENSIVE SURGERIES TO ESOPHAGUS/STOMACH. PIV TO RFA/LFA THAT ARE PATENT AND INFUSING; NS @ 125 MLS/HR. BED LOWERED, CALL LIGHT IN REACH. PT ABLE TO MAKE NEEDS KNOWN.
[2024-12-15 06:16] LABS: Anion Gap 11.0 mmol/L (3-11); Blood Urea Nitrogen 14.0 mg/dL (8-24); CO2, Blood 25.0 mmol/L (21-32); Calcium, Blood 8.1 mg/dL (8.5-10.1); Chloride, Blood 101.0 mmol/L (98-108); Creatinine, Blood 0.73 mg/dL (0.60-1.20); Glucose, Blood 92.0 mg/dL (70-99); Potassium, Blood 3.9 mmol/L (3.5-5.5); Sodium, Blood 133.0 mmol/L (136-145)
--- NOTE | 2024-12-15 08:17 | NUR ---
ASSUMED CARE OF PATIENT AT APPROXIMATELY 0700. REPORT RECEIVED FROM MI WHARTON. PT ASLEEP AT TIME OF BEDSIDE REPORT. CONTINUOUS CARDIAC MONITORING IN PLACE. ON RA. NS INFUSING AT 125 mL/HR. NO ACUTE NEEDS IDENTIFIED AT THIS TIME. SEE SHIFT ASSESSMENT FOR FULL DETAILS.
[2024-12-15] MEDS ORDERED: Lactobacil 2-S.Thermo-Bifido 1 1 Cap PO SCH (09:00)
[2024-12-15] MEDS ORDERED: Multivitamins 1 Tab PO SCH (09:00)
[2024-12-15] MEDS ORDERED: Enoxaparin 40 MG/0.4 ML SYR SC SCH (09:00)
[2024-12-15 09:31] LABS: CORONAVIRUS COVID-19 AG Negative (NEGATIVE)
[2024-12-15 11:06] LABS: Stool Occult Blood Guaiac 1 Neg (Neg)
[2024-12-15 13:38] LABS: BASOPHILS ABSOLUTE AUTO 0.02 K/mm3 (0.00-0.23); BASOPHILS PERCENT AUTO 0 % (0-2); EOSINOPHILS ABSOLUTE AUTO 0.06 K/mm3 (0.00-0.68); EOSINOPHILS PERCENT AUTO 1 % (0-6); Hematocrit 26.2 % (37.0-53.0); Hemoglobin 8.6 g/dL (13.5-17.5); IMMATURE GRAN ABSOLUTE AUTO 0.02 K/mm3 (0.00-0.10); IMMATURE GRAN PERCENT AUTO 0 % (0-1); LYMPHOCYTES ABSOLUTE AUTO 0.70 K/mm3 (0.84-5.20); LYMPHOCYTES PERCENT AUTO 14 % (21-46); MONOCYTES ABSOLUTE AUTO 0.58 K/mm3 (0.16-1.47); MONOCYTES PERCENT AUTO 12 % (4-13); Mean Corpuscular HGB Conc 32.8 g/dL (31.5-36.5); Mean Corpuscular Volume 87 fL (80-100); NEUTROPHILS ABSOLUTE AUTO 3.65 K/mm3 (1.96-9.15); NEUTROPHILS PERCENT AUTO 73 % (41-73); NRBC ABSOLUTE 0.00 K/mm3 (0.00-0.02); NRBC Auto 0.0 /100 WBC (0.0-0.2); Platelet Count 56 K/mm3 (150-400); RDW Coefficient Variation 15.7 % (11.7-14.2); RDW Standard Deviation 48.1 fL (35.1-46.3)
[2024-12-15 13:46] LABS: Anion Gap 10.0 mmol/L (3-11); Blood Urea Nitrogen 16.0 mg/dL (8-24); CO2, Blood 24.0 mmol/L (21-32); Calcium, Blood 8.0 mg/dL (8.5-10.1); Chloride, Blood 103.0 mmol/L (98-108); Creatinine, Blood 0.86 mg/dL (0.60-1.20); Glucose, Blood 134.0 mg/dL (70-99); Potassium, Blood 3.0 mmol/L (3.5-5.5); Sodium, Blood 134.0 mmol/L (136-145)
[2024-12-15] MEDS ORDERED: Pantoprazole Sodium 40 MG Injection IV SCH (16:30)
--- NOTE | 2024-12-15 17:34 | NUR ---
SHIFT SUMMARY PT REMAINED ALERT AND ORIENTED X 4 T/O ENTIRETY OF SHIFT. ABLE TO FOLLOW COMMANDS, MAKE PURPOSEFUL MOVEMENTS, AND MAKE NEEDS KNOWN. TMAX 102.6, TYLENOL ADMINISTERED AND ICE PACKS APPLIED. DENIES PAIN. CONTINUOUS CARDIAC MONITORING IN PLACE SHOWS SR-ST, BP STABLE. ON RA c O2 SATURATIONS > 92%. TOLERATING PO INTAKE WELL, MILD NAUSEA c MEALS. 2 LIQUID STOOLS THIS SHIFT. MINIMAL URINE OUTPUT c UCX PENDING. CIWA SCORES 14-19, MEDICATED PER EMAR c GOOD BENEFIT. NS INFUSING AT 125 mL/HR. WILL CONTINUE TO MONITOR AND REPORT TO ONCOMING RN.
[2024-12-15] MEDS ORDERED: Piperacillin/Tazobactam Sod 4.5 GM in NS 100 ML IV ONE (18:40)
[2024-12-15 20:55] LABS: Source, Urine Clean Catch
[2024-12-15 21:12] LABS: Bilirubin, Urine Neg (Neg); Color, Urine Amber (P-Yellow); Glucose Qualitative, Urine Neg (Neg); Ketones, Urine 1+ (Neg); Leukocyte Esterase, Urine 1+ (Neg); Protein, Urine 2+ (Neg); Specific Gravity, Urine 1.015 (1.003-1.022); Urobilinogen, Urine NORM (Normal)
--- NOTE | 2024-12-15 21:38 | NUR ---
ASSUMPTION OF CARE/ASSESSMENT: ASSUMED CARE OF PT AT 1900, BEDSIDE SHIFT REPORT RECIEVED FROM GABY STARK. PT IN BED, A&O X 4, PLEASANT AND COOPERATIVE WITH CARE. PT ABLE TO MAKE NEEDS KNONW, MILD RLQ PAIN UPON PALPATION WITH A HX OF LIVER CIRRHOSIS. PT ON RA, LUNGS CLEAR T/O, SPO2 98<, AND DENIES SOB. SR ON MONITOR WITH HR 90'S, SBP 120'S AND DENIES CHEST PAIN/PRESSURE AT THIS TIME. PT TOLERATING CLEAR LIQUID DIET. PT HAD DIARRHEA AT START OF SHIFT; ABLE TO ROLL INDEPENDENTLY FOR BEDPAN. 14 FR COUDE WILL[place]SON PLACED PER DR. OROURKE; RECTAL TEMP PROBE IN PLACE. URINE SPECIMEN SENT TO LAB FOR CX. PIV TO RFA AND LFA THAT ARE PATENT; NS @ 125 MLS/HR. BED LOWERED, CALL LIGHT IN REACH.
[2024-12-15 21:46] LABS: Red Blood Cells, Urine 0-2 /hpf (0-2)
[2024-12-16] VITALS (31 sets, daily range): BP systolic 129–168; BP diastolic 56–101
[2024-12-16] MEDS ORDERED: Piperacillin/Tazobactam Sod 4.5 GM in NS 100 ML IV SCH (02:00)
[2024-12-16 03:31] LABS: BASOPHILS ABSOLUTE AUTO 0.02 K/mm3 (0.00-0.23); BASOPHILS PERCENT AUTO 0 % (0-2); EOSINOPHILS ABSOLUTE AUTO 0.09 K/mm3 (0.00-0.68); EOSINOPHILS PERCENT AUTO 2 % (0-6); Hematocrit 26.5 % (37.0-53.0); Hemoglobin 8.5 g/dL (13.5-17.5); IMMATURE GRAN ABSOLUTE AUTO 0.04 K/mm3 (0.00-0.10); IMMATURE GRAN PERCENT AUTO 1 % (0-1); LYMPHOCYTES ABSOLUTE AUTO 0.66 K/mm3 (0.84-5.20); LYMPHOCYTES PERCENT AUTO 14 % (21-46); MONOCYTES ABSOLUTE AUTO 0.51 K/mm3 (0.16-1.47); MONOCYTES PERCENT AUTO 11 % (4-13); Mean Corpuscular HGB Conc 32.1 g/dL (31.5-36.5); Mean Corpuscular Volume 88 fL (80-100); NEUTROPHILS ABSOLUTE AUTO 3.43 K/mm3 (1.96-9.15); NEUTROPHILS PERCENT AUTO 72 % (41-73); NRBC ABSOLUTE 0.00 K/mm3 (0.00-0.02); NRBC Auto 0.0 /100 WBC (0.0-0.2); Platelet Count 63 K/mm3 (150-400); RDW Coefficient Variation 15.7 % (11.7-14.2); RDW Standard Deviation 48.9 fL (35.1-46.3)
[2024-12-16 03:51] LABS: Alanine Aminotransfer (ALT/SGP 32.0 U/L (12-78); Albumin, Blood 3.1 g/dL (3.4-5.0); Albumin/Globulin Ratio 0.8 (0.8-1.8); Anion Gap 10.0 mmol/L (3-11); Aspartate Aminotrans (AST/SGOT 53.0 U/L (12-37); Bilirubin, Total 1.2 mg/dL (0.1-1.0); Blood Urea Nitrogen 14.0 mg/dL (8-24); CO2, Blood 22.0 mmol/L (21-32); Calcium, Blood 8.0 mg/dL (8.5-10.1); Chloride, Blood 104.0 mmol/L (98-108); Creatinine, Blood 0.83 mg/dL (0.60-1.20); Globulin, Blood 3.7 g/dL (2.2-4.0); Glucose, Blood 81.0 mg/dL (70-99); Potassium, Blood 3.3 mmol/L (3.5-5.5); Sodium, Blood 133.0 mmol/L (136-145); Total Protein, Blood 6.8 g/dL (6.4-8.2)
[2024-12-16 05:40] LABS: C DIFFICILE DNA NEGATIVE (Negative)
--- NOTE | 2024-12-16 05:58 | NUR ---
SHIFT SUMMARY: NO ACUTE CHANGES OVERNIGHT; VSS THROUGHOUT THE SHIFT. PT CONTINUES TO HAVE DIARRHEA WITH A TOTAL OF THREE EPISODES THIS SHIFT. PROVIDER NOTIFIED AND SAMPLE SENT TO LAB FOR C-DIFF; C-DIFF NEGATIVE. PT GIVEN SOME IMODIUM AND DIARRHEA HAS STOPPED AT THIS TIME. LAST CIWA WAS 8, PT GIVEN 25 MG OF LIBRIUM. PT SLEPT ON AND OFF THROUGHOUT THE NIGHT. RECTAL PROBE PATENT, TMAX 99.7. NS @ 125 MLS/HR. WILLIAMSON PLACED AND IS PATENT AND DRAINING TO GRAVITY. BED LOWERED, CALL LIGHT IN REACH.
--- NOTE | 2024-12-16 17:02 | NUR ---
SHIFT SUMMARY: PT ALERT, ORIENTED X3. ABLE TO FOLLOW COMMANDS AND MAKE NEEDS KNOWN. FORGETFUL AT TIMES. BED/CHAIR ALARM ON FOR SAFETY. STRENGTH WEAK, EQUAL BILATERALLY. TREMORS NOTED IN BUE. PT ADMITTED FOR ETOH, CIWA 8-9 THIS SHIFT. MEDICATED PER EMAR W/ LIBRIUM. BP STABLE. HR ST 100'S. SPO2 >96% ON ROOM AIR. LUNG SOUNDS DIM IN BASES. PT FEBRILE ON AND OFF, TEMP MAX OF 100.6. ABD SOFT, NON TENDER, BOWEL SOUNDS +. NO BM. WILLIAMSON CATHETER IN PLACE, DRAINING DARK YELLOW URINE TO GRAVITY. PT ABLE TO WORK WITH PHYSICAL THERAPY THIS AFTERNOON, TWO PERSON ASSIST WITH FWW. NS GTT @125ML/HR. BED IN LOW, CALL LIGHT IN REACH, WILL REPORT TO ONCOMING RN.
--- NOTE | 2024-12-16 19:44 | NUR ---
ASSUMPTION OF CARE ASSUMED PT'S CARE AT 1900.BESIDE REPORT COMPLETED.PT WIDE AWAKE RESTING IN BED.PLAN OF CARE REVIEWED.PT REPORTS POOR PO INTAKE,PT GIVEN PROTEIN SHAKE PER PT'S REQUEST.PT DENIES PAIN,DENIES FURTHER NEEDS AT THIS TIME.CALL LIGHT AND PT'S ITEMS WITHIN REACH,BED ALARM IN USE FOR FALL PREVENTION SAFETY.MONITORING ONGOING PER CAREPLAN.
[2024-12-16] MEDS ORDERED: Diazepam 5 MG / ML 2ML SYR IV ONE (21:45)
--- NOTE | 2024-12-16 22:07 | NUR ---
CARE NOTE 2138 DR JOSH Colindres NOTIFIED OF PT'S CIWA SCORE OF 28,PT PULLED HIS WILLIAMSON CATHETER.PT GIVEN PRN LIBRIUM AND VALIUM WITH NO EFFECT.MD GAVE ORDERS TO GIVE VALIUM 5MG IV NOW,CHANGE PT TO ICU STATUS AND RESTART PRECEDEX.
[2024-12-17] VITALS (41 sets, daily range): BP systolic 127–185; BP diastolic 73–97
[2024-12-17 03:34] LABS: BASOPHILS ABSOLUTE AUTO 0.02 K/mm3 (0.00-0.23); BASOPHILS PERCENT AUTO 1 % (0-2); EOSINOPHILS ABSOLUTE AUTO 0.10 K/mm3 (0.00-0.68); EOSINOPHILS PERCENT AUTO 3 % (0-6); Hematocrit 25.6 % (37.0-53.0); Hemoglobin 8.1 g/dL (13.5-17.5); IMMATURE GRAN ABSOLUTE AUTO 0.01 K/mm3 (0.00-0.10); IMMATURE GRAN PERCENT AUTO 0 % (0-1); LYMPHOCYTES ABSOLUTE AUTO 0.37 K/mm3 (0.84-5.20); LYMPHOCYTES PERCENT AUTO 12 % (21-46); MONOCYTES ABSOLUTE AUTO 0.35 K/mm3 (0.16-1.47); MONOCYTES PERCENT AUTO 11 % (4-13); Mean Corpuscular HGB Conc 31.6 g/dL (31.5-36.5); Mean Corpuscular Volume 89 fL (80-100); NEUTROPHILS ABSOLUTE AUTO 2.37 K/mm3 (1.96-9.15); NEUTROPHILS PERCENT AUTO 74 % (41-73); NRBC ABSOLUTE 0.00 K/mm3 (0.00-0.02); NRBC Auto 0.0 /100 WBC (0.0-0.2); Platelet Count 72 K/mm3 (150-400); RDW Coefficient Variation 16.4 % (11.7-14.2); RDW Standard Deviation 49.2 fL (35.1-46.3)
[2024-12-17 03:50] LABS: Anion Gap 11.0 mmol/L (3-11); Blood Urea Nitrogen 9.0 mg/dL (8-24); CO2, Blood 21.0 mmol/L (21-32); Calcium, Blood 8.0 mg/dL (8.5-10.1); Chloride, Blood 110.0 mmol/L (98-108); Creatinine, Blood 0.9 mg/dL (0.60-1.20); Glucose, Blood 165.0 mg/dL (70-99); Potassium, Blood 4.0 mmol/L (3.5-5.5); Sodium, Blood 138.0 mmol/L (136-145)
--- NOTE | 2024-12-17 06:27 | NUR ---
PT MONITORED DURING THE SHIFT.CIWA SCORE 10-37.PT RESTARTED ON PRECEDEX,TITRATED PER PROTOCOL.PT CURRENTLY ON 1.4MCG/KG/HR.PT ALSO RECEIVED A TOTAL OF 125MG OF PRN LIBRIUM PO AND 15MG OF VALIUM IV.PT WAS VERY RESTLESS,ATTEMPTED TO GET OUT OF BED MULTIPLE TIMES ACCOMPANIED BY HALLUCINATIONS ,AGITATION AND SAYING THINGS THAT DON'T MAKE SENSE .PT REQUIRED CONSTANT REDIRECTION.PT WAS ABLE TO GET SOME REST AFTER MIDNIGHT AND HAS BEEN SLEEPING SINCE THEN.PT GIVEN PRN HYDRALAZINE 20MG IV FOR SBP OF 185.SBP DOWN TO THE 120'-130'S.PT WAS ALSO TACHYCARDIC WITH HR IN THE 120'S-140'S WHEN HE WAS RESTLESS.PT'S HR DOWN TO THE 80'S AT THIS TIME WHILE SLEEPING.PT PULLED HIS WILLIAMSON CATHETER, NOTIFIED.PT HAS BEEN INCONTINENT BUT OCCASIONALLY USED THE URINAL WITH ASSISTANCE. BLEEDING FROM PENIS SECONDARY TO TRAUMATIC PULLING OUT OF THE WILLIAMSON CATHETER.PT SLEEPING AT THIS TIME,RESPONDS TO VOICE.SWALLOWED AM MEDS WITHOUT DIFFICULTY.BREATHING EVEN AND NONLABORED.PT DENIES PAIN,DENIES NEEDS AT THI TIME.MONITORING ONGOING PER CAREPLAN.CALL LIGHT AND PT'S ITEMS WITHIN REACH.BED ALARM IN USE.
--- NOTE | 2024-12-17 09:11 | NUR ---
TRELL AWAKENED FOR AM MEDS, ASKS WHY HE IS HERE AND HOW HE GOT HERE. BEGINS TALKING NON-SENSE, INCONTINENT WHILE SLEEPING, BLOOD TINGED FROM WILLIAMSON COMING OUT. WAS ABLE TO USE THE URINAL WITH ASSISTANCE. RETURNED TO SLEEP.
[2024-12-17] MEDS ORDERED: NS 250 ML IV PRN (10:20)
--- NOTE | 2024-12-17 18:45 | NUR ---
TRELL JUST WOKE AND ASKED FOR SOME HELP, WANTED WATER. REMAINS DISORIENTED AND UNSURE OF WHERE HE IS AND WHY. CONTINUES WITH HALLUCINATIONS. PRECEDEX DOWN TO 1MCG/KG/HR. NATASHA @ [facility]. [facility] TEENS TO TWENTIES THIS SHIFT. NO HEADACHE, NO N/V.
--- NOTE | 2024-12-17 21:12 | NUR ---
ASSUMPTION OF CARE: ASSUMED CARE AT START OF SHIFT (1899). REPORT RECEIVED FROM DAY SHIFT RN. PT IS RESTING IN BED. THEY ARE SEDATED ON PRECEDEX GTT PER EMR ORDERS. CIWA SCORES HAVE BEEN 20-30'S. PT IS RESPONSIVE TO VERBAL STIMULI AND FOLLOWING COMMANDS. LUNG SOUNDS ARE CLEAR AND EQUAL BILATERAL, SPO2 >95% ON RA. SINUS RYTHM WITH SBP: 130-140'S MAP >65 HR: 70'S. IV: PERIPHERAL R&L FOREARMS. LINES AND CORDS PLACED OUT OF REACH. CALL LIGHT PLACED WITHIN REACH.
[2024-12-18] VITALS (57 sets, daily range): BP systolic 65–185; BP diastolic 47–109
[2024-12-18 04:01] LABS: BASOPHILS ABSOLUTE AUTO 0.03 K/mm3 (0.00-0.23); BASOPHILS PERCENT AUTO 0 % (0-2); EOSINOPHILS ABSOLUTE AUTO 0.29 K/mm3 (0.00-0.68); EOSINOPHILS PERCENT AUTO 4 % (0-6); Hematocrit 29.0 % (37.0-53.0); Hemoglobin 9.2 g/dL (13.5-17.5); IMMATURE GRAN ABSOLUTE AUTO 0.05 K/mm3 (0.00-0.10); IMMATURE GRAN PERCENT AUTO 1 % (0-1); LYMPHOCYTES ABSOLUTE AUTO 0.77 K/mm3 (0.84-5.20); LYMPHOCYTES PERCENT AUTO 11 % (21-46); MONOCYTES ABSOLUTE AUTO 0.79 K/mm3 (0.16-1.47); MONOCYTES PERCENT AUTO 11 % (4-13); Mean Corpuscular HGB Conc 31.7 g/dL (31.5-36.5); Mean Corpuscular Volume 91 fL (80-100); NEUTROPHILS ABSOLUTE AUTO 5.41 K/mm3 (1.96-9.15); NEUTROPHILS PERCENT AUTO 74 % (41-73); NRBC ABSOLUTE 0.02 K/mm3 (0.00-0.02); NRBC Auto 0.3 /100 WBC (0.0-0.2); Platelet Count 114 K/mm3 (150-400); RDW Coefficient Variation 18.5 % (11.7-14.2); RDW Standard Deviation 51.6 fL (35.1-46.3)
[2024-12-18 04:20] LABS: Anion Gap 13.0 mmol/L (3-11); Blood Urea Nitrogen 9.0 mg/dL (8-24); CO2, Blood 19.0 mmol/L (21-32); Calcium, Blood 8.2 mg/dL (8.5-10.1); Chloride, Blood 106.0 mmol/L (98-108); Creatinine, Blood 0.82 mg/dL (0.60-1.20); Glucose, Blood 115.0 mg/dL (70-99); Potassium, Blood 3.7 mmol/L (3.5-5.5); Sodium, Blood 134.0 mmol/L (136-145)
--- NOTE | 2024-12-18 06:36 | NUR ---
SHIFT SUMMARY: PT IS DOING WELL AND RESTING IN BED. PT ON PRECEDEX PER EMR ORDERS. PT IS RESPONSIVE TO VERBAL STIMULI AND ABLE TO FOLLOW COMMANDS. NO ACUTE CHANGES THROUGHOUT THE SHIFT. PT WAS ABLE TO SLEEP MOST OF THE NIGHT. CIWA SCORES HAVE RANGED FROM 12-22. VITAL SIGNS HAVE BEEN STABLE. PT IS ABLE TO USE BEDSIDE URINAL. LINES AND CORDS PLACED OUT OF REACH. CALL LIGHT PLACED WITHIN REACH.
--- NOTE | 2024-12-18 11:00 | NUR ---
AM NOTE: THIS RN ASSUMED CARE OF PT AT APPROX 0700, REPORT FROM NOC RN. PT ALERT, ORIENTED X4 THIS AM. STATES HE RECALLS REMOVING HIS WILLIAMSON CATH & THAT HE FEELS BAD FOR HIS AGITATION THE PAST COUPLE DAYS. HE IS ABLE TO STATE THIS IS DECEMBER 2024 & THAT HE IS IN THE HOSPITAL FOR ETOH W/D. PLEASANT & COOPERATIVE W/ ALL CARE, ALTHOUGH FLAT AFFECT. HR 70-80'S, SINUS RHYTHM ON MONITOR. SBP 100-50'S FOLLOWING AM PO ANTI-HYPERTENSIVES. SPO2 >90% ON ROOM AIR, RESPIRATIONS EVEN & UNLABORED. TMAX 100.0, TEMP TRENDING DOWN. PT W/ INTERMITTENT URINARY INCONTINENCE, CONDOM CATH PLACED FOR PT COMFORT. TOLERATING PO INTAKE WELL. CIWA 8-11, MEDICATED PER EMAR W/ PO LIBRIUM & PRECEDEX GTT. SEE CC FLOWSHEET FOR TITRATIONS. BATH COMPLETED THIS AM, PT UTILIZING CALL LIGHT APPROPRIATELY. BED ALARM ON FOR PT SAFETY.
--- NOTE | 2024-12-18 17:12 | NUR ---
END OF SHIFT NOTE: NO ACUTE EVENTS THIS SHIFT. PT HAS REMAINED ALERT, ORIENTED X3-4. ABLE TO USE CALL LIGHT TO COMMUNICATE NEEDS W/ STAFF. HR 70-80'S, SINUS RHYTHM ON MONITOR. AFTERNOON SBP 80-120'S, MAP >65. SPO2 >90% ON ROOM AIR. AFEBRILE W/ CORE TEMP. MALE PW DRAINING URINE TO SUCTION. NO BM'S. PRECEDEX GTT OFF SINCE 1555, SEE CC FLOWSHEET. AFTERNOON CIWA 2-7. PT SITTING UP IN BED EATING DINNER AT THIS TIME. CALL LIGHT IN REACH, BED ALARM ON FOR PT SAFETY.
[2024-12-18] MEDS ORDERED: NS 500 ML IV ONE ×2 (18:25→18:26)
--- NOTE | 2024-12-18 18:36 | NUR ---
CONDITION CHANGE: THIS RN AT PT'S BEDSIDE DUE TO BP 76/57. PT C/O "NOT FEELING SO GOOD", PALE, DIAPHORETIC. C/O ABD PAIN. REPEAT BP 65/48. MANUAL BP TAKEN, SBP 70-80'S. ON ASSESSMENT, PT ABLE TO MOVE ALL EXTREMITIES EQUALLY, NO UNILATERAL DEFICITS PRESENT. CALL PLACED TO DR. OROURKE. ORDER RECEIVED TO GIVE 500ML BOLUS NOW. IF HYPOTENSION PERSISTS FOLLOWING BOLUS, ORDER TO INITIATE LEVOPHED. PT LYING FLAT IN BED, PALLOR SEEMS TO BE IMPROVING. BOLUS INFUSING AT THIS TIME. PT REPORTS THAT HE IS FEELING SLIGHTLY BETTER, INSTRUCTED TO CALL IMMEDIATELY W/ ANY CHANGE IN SYMPTOMS.
[2024-12-19] VITALS (37 sets, daily range): BP systolic 85–181; BP diastolic 53–100
--- NOTE | 2024-12-19 06:53 | NUR ---
SHIFT SUMMARY: PT IS DOING WELL AND RESTING IN BED. NO ACUTE CHANGES THROUGHOUT THE SHIFT. PT A&OX4 AND FOLLOWING COMMANDS. PT STATES HAVING A SLIGHT HEADACHE BUT NO CP OR SOB. LUNG SOUNDS ARE CLEAR AND EQUAL BILATERALLY, SPO2 >95% ON RA. SINUS RYTHM WITH SBP: 120-150'S MAP >65 HR:70-100'S. IV: PERIPHERAL IN R&L FOREARMS. SKIN: BRUSING ON R HIP/BUTTOCKS. MALE PUREWICK IN PLACE AND CONNECTED TO CONTINUOUS SUCTION. LINES AND CORDS PLACED OUT OF REACH. CALL LIGHT PLACED WITHIN REACH.
[2024-12-19 09:00] LABS: BASOPHILS ABSOLUTE AUTO 0.05 K/mm3 (0.00-0.23); BASOPHILS PERCENT AUTO 1 % (0-2); EOSINOPHILS ABSOLUTE AUTO 0.29 K/mm3 (0.00-0.68); EOSINOPHILS PERCENT AUTO 4 % (0-6); Hematocrit 29.3 % (37.0-53.0); Hemoglobin 9.1 g/dL (13.5-17.5); IMMATURE GRAN ABSOLUTE AUTO 0.08 K/mm3 (0.00-0.10); IMMATURE GRAN PERCENT AUTO 1 % (0-1); LYMPHOCYTES ABSOLUTE AUTO 0.61 K/mm3 (0.84-5.20); LYMPHOCYTES PERCENT AUTO 7 % (21-46); MONOCYTES ABSOLUTE AUTO 0.89 K/mm3 (0.16-1.47); MONOCYTES PERCENT AUTO 11 % (4-13); Mean Corpuscular HGB Conc 31.1 g/dL (31.5-36.5); Mean Corpuscular Volume 92 fL (80-100); NEUTROPHILS ABSOLUTE AUTO 6.27 K/mm3 (1.96-9.15); NEUTROPHILS PERCENT AUTO 77 % (41-73); NRBC ABSOLUTE 0.00 K/mm3 (0.00-0.02); NRBC Auto 0.0 /100 WBC (0.0-0.2); Platelet Count 154 K/mm3 (150-400); RDW Coefficient Variation 19.8 % (11.7-14.2); RDW Standard Deviation 57.5 fL (35.1-46.3)
[2024-12-19 09:16] LABS: Alanine Aminotransfer (ALT/SGP 25.0 U/L (12-78); Albumin, Blood 3.1 g/dL (3.4-5.0); Albumin/Globulin Ratio 0.7 (0.8-1.8); Anion Gap 12.0 mmol/L (3-11); Aspartate Aminotrans (AST/SGOT 32.0 U/L (12-37); Bilirubin, Total 1.4 mg/dL (0.1-1.0); Blood Urea Nitrogen 6.0 mg/dL (8-24); CO2, Blood 20.0 mmol/L (21-32); Calcium, Blood 8.1 mg/dL (8.5-10.1); Chloride, Blood 108.0 mmol/L (98-108); Creatinine, Blood 0.86 mg/dL (0.60-1.20); Globulin, Blood 4.2 g/dL (2.2-4.0); Glucose, Blood 74.0 mg/dL (70-99); Potassium, Blood 3.2 mmol/L (3.5-5.5); Sodium, Blood 137.0 mmol/L (136-145); Total Protein, Blood 7.3 g/dL (6.4-8.2)
[2024-12-19] MEDS ORDERED: NS 500 ML IV ONE (13:40)
--- NOTE | 2024-12-19 16:45 | NUR ---
UPDATE PT TRANSFERRED FROM ICU TO PCU VIA SLIDE TRANSFER. PT ALERT AND ORIENTED, ANSWERING QUESTIONS APPROPRIATELY. DISCUSSED SIGNS/SYMPTOMS OF ETOH WD WITH PATIENT. PT STATES HE FEELS FINE AT THIS TIME AND DOES NOT FEEL LIKE HE IS GOING THROUGH WITHDRAWALS ANYMORE. PUREWICK REMOVED AND URINAL PROVIDED TO PT. PT ABLE TO REPOSITION HIMSELF IN THE BED. BP STABLE. HR SINUS TACH 110'S. O2 SATS >90% ON RA. PT DENIES ANY PAIN. BRUISING NOTED TO RIGHT HIP AND BOTTOM. PT ORIENTED TO NEW ROOM AND CALL LIGHT. WILL CONTINUE PLAN OF CARE AND REPORT OFF TO ONCOMING MI
--- NOTE | 2024-12-19 18:13 | NUR ---
DAY SHIFT SUMMARY PT WAS ORIENTED X4, ANXIOUS, PLEASANT AND COOPERATIVE. ABLE TO MAKE NEEDS KNOWN. CIWA ELEVATED IN TEENS AT START OF SHIFT AND HYPERTENSIVE/TACHYCARDIC EVEN AFTER PO METOPROLOL AND OTHER PO MEDS. SEE EMAR FOR DETAILS. LIBRIUM GIVEN X1 WITH GOOD EFFECT FOR CIWA. NO PAIN. GOT UP WITH PT X1 AND HAD DIZZINESS AND HYPOTENSION WITH ACTIVITY. NOTIFIED DR. HILL AND ORDER FOR 500ML FLUID BOLUS RECEIVED. GIVEN WITH IMPROVEMENT IN BP. NOTIFIED PROVIDER AND CARE TEAM AT ICU ROUNDS OF PT COUGHING WITH PO INTAKE, PT REPORTS NOT NEW AND BASELINE. NO ST EVAL AT THIS TIME REPORT GIVEN TO MI DENIS AND TRANSFERRED TO PCU20
[2024-12-20] VITALS (9 sets, daily range): BP systolic 97–164; BP diastolic 56–110
--- NOTE | 2024-12-20 05:40 | NUR ---
SHIFT SUMMARY PT IS A&O X4, ABLE TO MAKE NEEDS KNOWN, MOVING ALL EXTREMITIES WITH PURPOSE, REPOSITIONING SELF IN BED. SPO2 GREATER 92% ON RA, LUNGS SOUND CLEAR T/O WITH DIMINISHED BASES, NO SIGNS OF RESPIRATORY DISTRESS NOTED T/O THIS SHIFT, PT DENIES SOB WHILE AT REST. CONTINUOUS TELE MONITORING, SINUS 90-100 S, PULSES PRESENT T/O, PT DENIES CHEST P/P T/O THIS SHIFT, BP STABLE WITH MAP GREATER THAN 65. BOWEL TONES PRESENT IN ALL 4Q, PT DENIES FEELINGS OF NAUSEA, OR CONSTIPATION, OR PAIN. USING URINAL IND, URINE YELLOW IN COLOR. BED LOWEST POSITION, CALL LIGHT IN REACH, AWAITING TO GIVE REPORT TO ONCOMING RN.
[2024-12-20 06:09] LABS: BASOPHILS ABSOLUTE AUTO 0.05 K/mm3 (0.00-0.23); BASOPHILS PERCENT AUTO 1 % (0-2); EOSINOPHILS ABSOLUTE AUTO 0.25 K/mm3 (0.00-0.68); EOSINOPHILS PERCENT AUTO 4 % (0-6); Hematocrit 28.1 % (37.0-53.0); Hemoglobin 8.8 g/dL (13.5-17.5); IMMATURE GRAN ABSOLUTE AUTO 0.07 K/mm3 (0.00-0.10); IMMATURE GRAN PERCENT AUTO 1 % (0-1); LYMPHOCYTES ABSOLUTE AUTO 0.68 K/mm3 (0.84-5.20); LYMPHOCYTES PERCENT AUTO 10 % (21-46); MONOCYTES ABSOLUTE AUTO 0.85 K/mm3 (0.16-1.47); MONOCYTES PERCENT AUTO 12 % (4-13); Mean Corpuscular HGB Conc 31.3 g/dL (31.5-36.5); Mean Corpuscular Volume 92 fL (80-100); NEUTROPHILS ABSOLUTE AUTO 5.12 K/mm3 (1.96-9.15); NEUTROPHILS PERCENT AUTO 73 % (41-73); NRBC ABSOLUTE 0.00 K/mm3 (0.00-0.02); NRBC Auto 0.0 /100 WBC (0.0-0.2); Platelet Count 156 K/mm3 (150-400); RDW Coefficient Variation 19.9 % (11.7-14.2); RDW Standard Deviation 61.5 fL (35.1-46.3)
[2024-12-20 06:25] LABS: Alanine Aminotransfer (ALT/SGP 25.0 U/L (12-78); Albumin, Blood 3.2 g/dL (3.4-5.0); Albumin/Globulin Ratio 0.8 (0.8-1.8); Anion Gap 10.0 mmol/L (3-11); Aspartate Aminotrans (AST/SGOT 32.0 U/L (12-37); Bilirubin, Total 1.5 mg/dL (0.1-1.0); Blood Urea Nitrogen 6.0 mg/dL (8-24); CO2, Blood 20.0 mmol/L (21-32); Calcium, Blood 8.3 mg/dL (8.5-10.1); Chloride, Blood 108.0 mmol/L (98-108); Creatinine, Blood 0.92 mg/dL (0.60-1.20); Globulin, Blood 3.8 g/dL (2.2-4.0); Glucose, Blood 81.0 mg/dL (70-99); Potassium, Blood 3.3 mmol/L (3.5-5.5); Sodium, Blood 135.0 mmol/L (136-145); Total Protein, Blood 7.0 g/dL (6.4-8.2)
--- NOTE | 2024-12-20 16:47 | NUR ---
SHIFT SUMMARY S/P ETOH, A/OX4, VSS, TOLERATING PO, PAIN MANAGED PER EMAR, WORKED WITH THERAPY TODAY AND WAS ABLE TO AMBULATE INTO THE GARG WITH ASSISTANCE AND TO THE BATHROOM ONCE BUT WAS VERY FATIGUED AFTERWARDS. UP TO THE CHAIR MOST OF THE DAY. CALL LIGHT IN REACH
--- NOTE | 2024-12-20 18:44 | NUR ---
PT TRANSFERED TO ROOM 310 FROM PCU. REPORT RECIEVED FROM NELY STARK
[2024-12-21 03:44] VITALS: BP 145/82
[2024-12-21 05:17] LABS: BASOPHILS ABSOLUTE AUTO 0.07 K/mm3 (0.00-0.23); BASOPHILS PERCENT AUTO 1 % (0-2); EOSINOPHILS ABSOLUTE AUTO 0.27 K/mm3 (0.00-0.68); EOSINOPHILS PERCENT AUTO 4 % (0-6); Hematocrit 30.2 % (37.0-53.0); Hemoglobin 9.1 g/dL (13.5-17.5); IMMATURE GRAN ABSOLUTE AUTO 0.10 K/mm3 (0.00-0.10); IMMATURE GRAN PERCENT AUTO 2 % (0-1); LYMPHOCYTES ABSOLUTE AUTO 0.66 K/mm3 (0.84-5.20); LYMPHOCYTES PERCENT AUTO 11 % (21-46); MONOCYTES ABSOLUTE AUTO 0.83 K/mm3 (0.16-1.47); MONOCYTES PERCENT AUTO 14 % (4-13); Mean Corpuscular HGB Conc 30.1 g/dL (31.5-36.5); Mean Corpuscular Volume 94 fL (80-100); NEUTROPHILS ABSOLUTE AUTO 4.23 K/mm3 (1.96-9.15); NEUTROPHILS PERCENT AUTO 69 % (41-73); NRBC ABSOLUTE 0.00 K/mm3 (0.00-0.02); NRBC Auto 0.0 /100 WBC (0.0-0.2); Platelet Count 169 K/mm3 (150-400); RDW Coefficient Variation 20.4 % (11.7-14.2); RDW Standard Deviation 66.0 fL (35.1-46.3)
[2024-12-21 05:43] LABS: Anion Gap 10.0 mmol/L (3-11); Blood Urea Nitrogen 7.0 mg/dL (8-24); CO2, Blood 22.0 mmol/L (21-32); Calcium, Blood 8.5 mg/dL (8.5-10.1); Chloride, Blood 112.0 mmol/L (98-108); Creatinine, Blood 0.96 mg/dL (0.60-1.20); Glucose, Blood 78.0 mg/dL (70-99); Potassium, Blood 3.5 mmol/L (3.5-5.5); Sodium, Blood 140.0 mmol/L (136-145)
--- NOTE | 2024-12-21 07:29 | NUR ---
SHIFT SUMMARY PT A/Ox4, TELE IN PLACE, ST RHYTHM, OTHER VSS ON RA. AMBULATED FULL CIRCUIT OF UNIT WITH GB/FWW, TOLERATED FAIRLY WELL. PT ENGAGED, LOOKING FORWARD TO BUILDING STRENGTH/ENDURANCE. UP WITH 1P ASSIST.
[2024-12-21 07:57] VITALS: BP 147/87
[2024-12-21 11:51] VITALS: BP 133/83
[2024-12-21 16:08] VITALS: BP 141/97
--- NOTE | 2024-12-21 18:31 | NUR ---
SHIFT SUMMARY PATIENT ALERT AND INTERACTIVE. PATIENT REQUESTING TO GO TO [facility] FOR REHAB. PATIENT STATES HE LIVES ALONE AND CANNOT GO HOME IN THE CONDITION HE IS IN. PATIENT ABLE TO WALK WITH A WALKER TO . PATIENT HAS BRUISING OF R HIP DOWN TO KNEE. PATIENT REPORTS THAT HE FELL BEFORE COMING TO THE HOSPITAL AND CONTINUES TO HAVE PAIN. HIP XRAY AND US DONE. FAMILY IN AND OUT.
[2024-12-21 19:36] VITALS: BP 93/63
[2024-12-22 02:48] VITALS: BP 142/84
--- NOTE | 2024-12-22 06:31 | NUR ---
SHIFT SUMMARY A/Ox3, DISORIENTED TO SITUATION AT TIMES. PT DOES NOT USE CALL LIGHT APPROPRIATELY, IRRITABLE ABOUT THE BED ALARM, DID NOT APPEAR TO UNDERSTAND THE REASONING FOR IT. AMBULATED MORE QUICKLY, MORE STEADILY THAN NIGHT PRIOR; 300 FT WALK WITH GB AND FWW. PT REPORTED LIGHTHEADEDNESS AND DIAPHORESIS NOTED AT THIS TIME, NO RHYTHM CHANGES ASSOCIATED (ST, HR 120s); RESOLVED AFTER BM. SAFETY PRECAUTIONS IN PLACE.
[2024-12-22 07:27] VITALS: BP 161/84
[2024-12-22] MEDS ORDERED: MULVITA PO (10:37)
[2024-12-22] MEDS ORDERED: ACET325 PO (10:37)
[2024-12-22] MEDS ORDERED: LOSA25 PO (10:37)
--- NOTE | 2024-12-22 11:00 | NUR ---
SHIFT SUMMARY AND DISCHARGE PATIENT ALERT AND INTERACTIVE. IMPULSIVE AT TIMES. USING WALKER TO AMBULATE WITH AND STAND BY ASSISTANCE. PATIENT EAGER TO GET TO [facility] FOR REHAB. FAMILY TO TRANSPORT PATIENT TO REHAB. DISCHARGE PACKET SENT WITH FAMILY. ROOM CHECK DONE PRIOR TO DISCHARGE. BELONGINGS SENT WITH PATIENT. TELE BOX RETURNED TO PCU AND IV REMOVED PRIOR TO DISCHARGE.
== END 2024-12-22 11:30 | DRG 897 ==
LOC: ER 21:52 → MEDS 12-15 03:13 → ICUE 12-15 03:13 → PCU 12-15 03:13 → ICUE 12-15 04:00 → PCU 12-19 16:20 → MEDS 12-20 18:36
PROVIDERS: Family Medicine; Internal Medicine; Student in an Organized Health Care Education/Training Program; ADMIT Student in an Organized Health Care Education/Training Program
DX: F10.239 Alcohol dependence with withdrawal, unspecified (principal); E87.20 Acidosis, unspecified; I24.89 Other forms of acute ischemic heart disease; E87.1 Hypo-osmolality and hyponatremia; Y90.0 Blood alcohol level of less than 20 mg/100 ml; K70.30 Alcoholic cirrhosis of liver without ascites; K52.9 Noninfective gastroenteritis and colitis, unspecified; I10 Essential (primary) hypertension; E87.6 Hypokalemia; D50.9 Iron deficiency anemia, unspecified; Z87.19 Personal history of other diseases of the digestive system; Z87.81 Personal history of (healed) traumatic fracture; Z98.890 Other specified postprocedural states; F17.290 Nicotine dependence, other tobacco product, uncomplicated; D69.6 Thrombocytopenia, unspecified; Z91.81 History of falling
CPT/HCPCS: 36415; 51703; 71045; 71046; 73502; 74177; 76705; 80048; 80053; 80320; 81001; 82010; 82272; 82607; 82728; 82746; 83036; 83540; 83550; 83605; 83690; 83735; 84484; 85025; 85610; 85730; 87040; 87086; 87428-QW; 87493; 93005; 93010; 93971; 96361; 96374; 97110; 97116; 97162; 97530; 99285-25; A9270; J0360; J0696; J1650; J2405; J2470; J2543; J3360; J3411; J7030; J7040; J7050; J7120; Q9967

== ENCOUNTER 2025-04-24 04:26 | Inpatient (IN) | payer SELFPAY ==
[~2025-04-24] VITALS: Ht 182.9 cm; Wt 96.7 kg
[2025-04-24] VITALS (37 sets, daily range): BP systolic 129–204; BP diastolic 81–117
[~2025-04-24 04:26] MED LIST changes: +ACET325 PO; +MELATONIN5 M1 PO; +MULVITA PO
[2025-04-24] MEDS ORDERED: NS 1,000 ML IV SCH (04:35)
[2025-04-24] MEDS ORDERED: Ondansetron HCl 2 MG / ML 2ML Vial IV ONE (04:35)
[2025-04-24] MEDS ORDERED: Multivitamins 1 Tab PO ONE (04:35)
[2025-04-24] MEDS ORDERED: Folic Acid 1 MG TAB PO ONE (04:40)
[2025-04-24 04:47] LABS: BASOPHILS ABSOLUTE AUTO 0.04 K/mm3 (0.00-0.23); BASOPHILS PERCENT AUTO 1 % (0-2); EOSINOPHILS ABSOLUTE AUTO 0.01 K/mm3 (0.00-0.68); EOSINOPHILS PERCENT AUTO 0 % (0-6); Hematocrit 44.3 % (37.0-53.0); Hemoglobin 14.6 g/dL (13.5-17.5); IMMATURE GRAN ABSOLUTE AUTO 0.03 K/mm3 (0.00-0.10); IMMATURE GRAN PERCENT AUTO 1 % (0-1); LYMPHOCYTES ABSOLUTE AUTO 0.26 K/mm3 (0.84-5.20); LYMPHOCYTES PERCENT AUTO 5 % (21-46); MONOCYTES ABSOLUTE AUTO 0.63 K/mm3 (0.16-1.47); MONOCYTES PERCENT AUTO 13 % (4-13); Mean Corpuscular HGB Conc 33.0 g/dL (31.5-36.5); Mean Corpuscular Volume 82 fL (80-100); NEUTROPHILS ABSOLUTE AUTO 3.95 K/mm3 (1.96-9.15); NEUTROPHILS PERCENT AUTO 80 % (41-73); NRBC ABSOLUTE 0.00 K/mm3 (0.00-0.02); NRBC Auto 0.0 /100 WBC (0.0-0.2); Platelet Count 90 K/mm3 (150-400); RDW Coefficient Variation 20.5 % (11.7-14.2); RDW Standard Deviation 57.9 fL (35.1-46.3)
[2025-04-24 05:50] LABS: Alanine Aminotransfer (ALT/SGP 76 U/L (12-78); Albumin, Blood 3.6 g/dL (3.4-5.0); Albumin/Globulin Ratio 0.9 (0.8-1.8); Anion Gap 15 mmol/L (3-11); Aspartate Aminotrans (AST/SGOT 126 U/L (12-37); Bilirubin, Total 1.6 mg/dL (0.1-1.0); Blood Urea Nitrogen 8 mg/dL (8-24); CO2, Blood 23 mmol/L (21-32); Calcium, Blood 8.2 mg/dL (8.5-10.1); Chloride, Blood 95 mmol/L (98-108); Creatinine, Blood 0.76 mg/dL (0.60-1.20); Ethanol (Alcohol), Blood, Med <3 mg/dL; Globulin, Blood 3.8 g/dL (2.2-4.0); Glucose, Blood 110 mg/dL (70-99); Potassium, Blood 3.7 mmol/L (3.5-5.5); Sodium, Blood 129 mmol/L (136-145); Total Protein, Blood 7.4 g/dL (6.4-8.2)
[2025-04-24] MEDS ORDERED: LORazepam 2 MG/ML 1ML Injection IV ONE (07:00)
[2025-04-24 07:58] LABS: Source, Urine Clean Catch
[2025-04-24] MEDS ORDERED: FLU VACC TS2025-26(6MOS UP)/PF 45 MCG/0.5 ML SYRINGE IM SCH (08:10)
[2025-04-24] MEDS ORDERED: LORazepam 2 MG/ML 1ML Injection IV PRN ×4 (08:15→12:35)
[2025-04-24 08:26] LABS: Bilirubin, Urine Neg (Neg); Color, Urine Yellow (P-Yellow); Glucose Qualitative, Urine 1+ (Neg); Ketones, Urine 1+ (Neg); Leukocyte Esterase, Urine Neg (Neg); Protein, Urine 2+ (Neg); Specific Gravity, Urine 1.020 (1.003-1.022); Urobilinogen, Urine NORM (Normal)
[2025-04-24 08:44] LABS: White Blood Cells, Urine 0-2 /hpf (0-5)
[2025-04-24] MEDS ORDERED: Enoxaparin 40 MG/0.4 ML SYR SC SCH (09:00)
[2025-04-24 14:34] LABS: Alanine Aminotransfer (ALT/SGP 79.0 U/L (12-78); Albumin, Blood 3.7 g/dL (3.4-5.0); Albumin/Globulin Ratio 0.9 (0.8-1.8); Anion Gap 13.0 mmol/L (3-11); Aspartate Aminotrans (AST/SGOT 142.0 U/L (12-37); Bilirubin, Total 1.9 mg/dL (0.1-1.0); Blood Urea Nitrogen 11.0 mg/dL (8-24); CO2, Blood 24.0 mmol/L (21-32); Calcium, Blood 8.7 mg/dL (8.5-10.1); Chloride, Blood 95.0 mmol/L (98-108); Creatinine, Blood 0.8 mg/dL (0.60-1.20); Globulin, Blood 4.2 g/dL (2.2-4.0); Glucose, Blood 98.0 mg/dL (70-99); Potassium, Blood 3.9 mmol/L (3.5-5.5); Sodium, Blood 128.0 mmol/L (136-145); Total Protein, Blood 7.9 g/dL (6.4-8.2)
--- NOTE | 2025-04-24 14:38 | NUR ---
ADMIT NOTE: PT ARRIVED TO THE UNIT VIA GURNEY AT 1200 AND IS TREMULOS, DIAPHRETIC, NAUSEATED AND HAS COMPLAINTS OF A MIGRAINE WITH A CIWA SCORE OF 16. PT MEDICATED PER EMAR FOR ETOH WITHDRAWL (SEE EMAR). PT SETTLED IN ROOM AND ADMISSION COMPLETED AND MED REC COMPLETED. SPONGE BATH COMPLETE ON PT'S EMILY AREA AND BARRIER CREAM APPPLIED TO REDDENED AREAS. PT IS A&OX4 AND ABLE TO ANSWER QUESTIONS AND MAKE NEEDS KNOWN.ASSISTED PT WITH URINAL. PT HAS CALL LIGHT IN REACH AND BED ALARM SET FOR SAFETY.
--- NOTE | 2025-04-24 18:13 | NUR ---
SHIFT SUMM: PT IS RELAXING AND ASLEEP IN BED WITH BED ALARM SET. PT HAS BEEN MEDICATED FOR ALCOHOL WITHDRAWL PER EMAR WITH CIWA SCORES RANGING FROM 16-18. PT HAS PUREWICK IN PLACE FOR INCONT AND HAD A LARGE LOOSE BM THIS SHIFT AND OCCULT STOOL SAMPLE SENT. PT IS A&OX4 AND ABLE TO MAKE NEEDS KNOWN AND FOLLOW COMMANDS. PIV TO RAC &LAC REMAIN PATENT. SP02 REMAINS >96% ON RA. SBP'S 140-190'S AND HR IN 90'S THIS SHIFT. PT HAD 30 BEATS OF VTACH AND STRIP SAVED TO CHART AND REMAINED ASYMPTOMATIC. PT TOLERATED PO MEDS WELL AND HAD A LARGE APPETITE THIS SHIFT. CALL LIGHT IN REACH AND BED LOW AND LOCKED FOR SAFETY.
--- NOTE | 2025-04-24 20:36 | NUR ---
ASSUME CARE: BEDSIDE REPORT RECIEVED FROM DAYSHIFT RN. PT A/Ox4 AND ABLE TO ANSWER QUESTIONS APPROPRIATELY, CIWA 11. SBP 150-160s, MAP>65. PT DENIES CP OR PRESSURE. SPO2>90% ON 2L NC PT DESATS WITH SLEEP TO 80%. PUREWICK IN PLACE DRAINING TO SUCTION. CALL LIGHT IN REACH AND BED ALARM ON FOR SAFETY. WILL UPDATE NEEDED.
[2025-04-25] VITALS (42 sets, daily range): BP systolic 121–202; BP diastolic 40–111
[2025-04-25 03:32] LABS: BASOPHILS ABSOLUTE AUTO 0.02 K/mm3 (0.00-0.23); BASOPHILS PERCENT AUTO 1 % (0-2); EOSINOPHILS ABSOLUTE AUTO 0.09 K/mm3 (0.00-0.68); EOSINOPHILS PERCENT AUTO 2 % (0-6); Hematocrit 43.3 % (37.0-53.0); Hemoglobin 14.0 g/dL (13.5-17.5); IMMATURE GRAN ABSOLUTE AUTO 0.02 K/mm3 (0.00-0.10); IMMATURE GRAN PERCENT AUTO 1 % (0-1); LYMPHOCYTES ABSOLUTE AUTO 0.47 K/mm3 (0.84-5.20); LYMPHOCYTES PERCENT AUTO 12 % (21-46); MONOCYTES ABSOLUTE AUTO 0.54 K/mm3 (0.16-1.47); MONOCYTES PERCENT AUTO 14 % (4-13); Mean Corpuscular HGB Conc 32.3 g/dL (31.5-36.5); Mean Corpuscular Volume 85 fL (80-100); NEUTROPHILS ABSOLUTE AUTO 2.67 K/mm3 (1.96-9.15); NEUTROPHILS PERCENT AUTO 70 % (41-73); NRBC ABSOLUTE 0.00 K/mm3 (0.00-0.02); NRBC Auto 0.0 /100 WBC (0.0-0.2); Platelet Count 71 K/mm3 (150-400); RDW Coefficient Variation 20.0 % (11.7-14.2); RDW Standard Deviation 61.4 fL (35.1-46.3)
[2025-04-25 04:01] LABS: Alanine Aminotransfer (ALT/SGP 72.0 U/L (12-78); Albumin, Blood 3.7 g/dL (3.4-5.0); Albumin/Globulin Ratio 0.9 (0.8-1.8); Anion Gap 10.0 mmol/L (3-11); Aspartate Aminotrans (AST/SGOT 100.0 U/L (12-37); Bilirubin, Total 1.7 mg/dL (0.1-1.0); Blood Urea Nitrogen 21.0 mg/dL (8-24); CO2, Blood 26.0 mmol/L (21-32); Calcium, Blood 8.9 mg/dL (8.5-10.1); Chloride, Blood 97.0 mmol/L (98-108); Creatinine, Blood 0.97 mg/dL (0.60-1.20); Globulin, Blood 4.0 g/dL (2.2-4.0); Glucose, Blood 121.0 mg/dL (70-99); Magnesium, Blood 2.1 mg/dL (1.6-2.4); Phosphorus, Blood 2.9 mg/dL (2.5-4.9); Potassium, Blood 3.8 mmol/L (3.5-5.5); Sodium, Blood 129.0 mmol/L (136-145); Total Protein, Blood 7.7 g/dL (6.4-8.2)
--- NOTE | 2025-04-25 05:35 | NUR ---
SHIFT SUMMARY: PT A/Ox4, ABLE TO MAKE NEEDS KNOWN, AND SLEEP T/O THE NIGHT. CIWAS RANGE FROM 9-13, MEDICATED PER EMAR. SBP 130-160s, MAP>65. PT DENIES CP OR PRESSURE. MONITOR SHOWS SINUS RYTHM, RATE 90s. SPO2>90% ON 2L NC. PT HAS PUREWICK IN PLACE, MINIMAL OUTPUT OF TAMEKA COLORED URINE. CALL LIGHT IN REACH. WILL REPORT TO ONCOMING RN.
[2025-04-25] MEDS ORDERED: NS 1,000 ML IV SCH (05:40)
[2025-04-25] MEDS ORDERED: CALCIUM GLUC IN NACL, ISO-OSM 50 ML IV ONE (06:45)
--- NOTE | 2025-04-25 07:15 | NUR ---
ASSUMED CARE THIS RN ASSUMED CARE OF PATIENT AT 0700 WITH PRECEPTOR ZENAIDA STARK. PATIENT IS ALERT AND ORIENTED DURING BSSR AND PARTICIPATES IN HANDOFF. HE IS ALERT AND ORIENTED X4 AND ASKS APPROPRIATE QUESTIONS ABOUT HIS CARE. HE IS ON 2LPM O2 WITH SPO2 >98%, RESPIRATIONS EVEN AND UNLABORED. SYSTOLIC BP >140, MAP STABLE. HE IS ON 75ML/HR NS. PATIENT APPEARS MILDLY DIAPHORETIC AND [place] AND STATES HE SEES OCCASIONAL HALLUCINATIONS. PER NOC RN, CIWA SCORES HAVE BEEN BETWEEN 9-13 AND WELL CONTROLLED WITH ATIVAN AND LIBRIUM OTHERWISE HE IS HUNGRY AND WOULD LIKE BREAKFAST. BED IN LOWEST POSITION. CALL LIGHT IN REACH.
[2025-04-25] MEDS ORDERED: Potassium Phos/Sodium Phos 250 MG PACK PO SCH (08:00)
[2025-04-25 12:49] LABS: Stool Occult Blood Guaiac 1 Neg (Neg)
--- NOTE | 2025-04-25 18:46 | NUR ---
SHIFT SUMMARY PATIENT HAS BEEN GETTING INCREASINGLY DISORIENTED AND CONFUSED T/O SHIFT. HE WAS ALERT AND ORIENTED X4 THIS MORNING AND IS NOW ORIENTED TO SELF. PATIENT BELIEVES IT IS 1994 AND THAT HE IS IN [place]. HIS CIWA IS 15 AFTER MEDICATION W/ HIGHEST SCORE 25. OTHERWISE SPO2 >98% ON RA WITH EVEN AND UNLABORED RESPIRATIONS. SYSTOLIC BP >140, MAP STABLE. HR SHOWS NSR TO SINUS TACHYCARDIA ON MONITOR. HE IS ON 75ML/HR NS. HE HAS PUREWICK IN PLACE WITH RED/TAEMKA URINE IN THE CANISTER. BED ALARM ON, PATIENT HAS ATTEMPTED TO TAKE OFF ECG LEADS AND LEAVE BED. BED IN LOWEST POSITION, CALL LIGHT IN REACH.
--- NOTE | 2025-04-25 19:53 | NUR ---
ASSUMPTION OF CARE: ASSUMED CARE OF PT AT 1900. PT CONFUSED. ALERT TO SELF ONLY. PT THINKING HE HAS A CHEW IN HIS MOUTH THAT IS ACTUALLY HIS PULLED PORK FROM DINNER. PT FOLLOWING DIRECTON AND REDIRECTABLE AT THIS TIME. PT ON RA WITH SPO2 >94%. DENIES SOB. SALES AND MARKETING ANALYST SHOWS ST WITH HR 100'S. SBP >180, GIVEN PRN CLONIDINE. DENIES CP. PUREWICK IN PLACE, MINIMAL UO NOTED FROM DAYHSIFT, DARK IN APPEARANCE. BLADDER SCAN SHOWED 122. PIV TO RFA AND RAC BOTH PATENT. NS AT 75 ML/HR INFUSING X1 BAG. TOLERATING PO INTAKE. BED LOCKED, CALL LIGHT AND BED ALARM ON.
--- NOTE | 2025-04-25 21:13 | NUR ---
UPDATE: PT INCREASINGLY MORE AGGITATED AND ANXIOUS. CALL PLACED TO HOSPITALIST, ORDER GIVEN TO START PRECEDEX. PRECEDEX INITIATED AT 0.3 MCG/KG/HR.
[2025-04-26] VITALS (28 sets, daily range): BP systolic 113–206; BP diastolic 74–130
[2025-04-26] MEDS ORDERED: HydrALAZINE HCl 20 MG / ML 1ML Vial IV PRN (03:30)
[2025-04-26 03:46] LABS: BASOPHILS ABSOLUTE AUTO 0.02 K/mm3 (0.00-0.23); BASOPHILS PERCENT AUTO 1 % (0-2); EOSINOPHILS ABSOLUTE AUTO 0.12 K/mm3 (0.00-0.68); EOSINOPHILS PERCENT AUTO 4 % (0-6); Hematocrit 40.5 % (37.0-53.0); Hemoglobin 13.2 g/dL (13.5-17.5); IMMATURE GRAN ABSOLUTE AUTO 0.02 K/mm3 (0.00-0.10); IMMATURE GRAN PERCENT AUTO 1 % (0-1); LYMPHOCYTES ABSOLUTE AUTO 0.53 K/mm3 (0.84-5.20); LYMPHOCYTES PERCENT AUTO 16 % (21-46); MONOCYTES ABSOLUTE AUTO 0.51 K/mm3 (0.16-1.47); MONOCYTES PERCENT AUTO 15 % (4-13); Mean Corpuscular HGB Conc 32.6 g/dL (31.5-36.5); Mean Corpuscular Volume 85 fL (80-100); NEUTROPHILS ABSOLUTE AUTO 2.12 K/mm3 (1.96-9.15); NEUTROPHILS PERCENT AUTO 64 % (41-73); NRBC ABSOLUTE 0.00 K/mm3 (0.00-0.02); NRBC Auto 0.0 /100 WBC (0.0-0.2); Platelet Count 62 K/mm3 (150-400); RDW Coefficient Variation 19.4 % (11.7-14.2); RDW Standard Deviation 59.8 fL (35.1-46.3)
[2025-04-26 04:05] LABS: Alanine Aminotransfer (ALT/SGP 61.0 U/L (12-78); Albumin, Blood 3.5 g/dL (3.4-5.0); Albumin/Globulin Ratio 0.9 (0.8-1.8); Anion Gap 10.0 mmol/L (3-11); Aspartate Aminotrans (AST/SGOT 69.0 U/L (12-37); Bilirubin, Total 1.7 mg/dL (0.1-1.0); Blood Urea Nitrogen 18.0 mg/dL (8-24); CO2, Blood 24.0 mmol/L (21-32); Calcium, Blood 8.9 mg/dL (8.5-10.1); Chloride, Blood 103.0 mmol/L (98-108); Creatinine, Blood 0.81 mg/dL (0.60-1.20); Globulin, Blood 3.9 g/dL (2.2-4.0); Glucose, Blood 125.0 mg/dL (70-99); Phosphorus, Blood 3.2 mg/dL (2.5-4.9); Potassium, Blood 4.0 mmol/L (3.5-5.5); Sodium, Blood 133.0 mmol/L (136-145); Total Protein, Blood 7.4 g/dL (6.4-8.2)
--- NOTE | 2025-04-26 05:49 | NUR ---
SHIFT SUMMARY: PT ALERT TO SELF ONLY. VERY CONFUSED AT TIMES AND AGGITATED. ATTEMPTING TO GET OUT OF BED TO "GO TO THE GYM". PRECEDEX STARTED THIS SHIFT. INFUSING AT 0.5 MCG/KG/HR CURRENTLY. INFORMATION TECHNOLOGY PROJECT MANAGER SHOWS SR/ST WITH HR 70-110. SBP ELEVATED DESPITE PRN CLONIDINE. SBP REACHED 190'S THIS SHIFT, ADDITIONAL PRN HYDRALAZINE ORDERED AND GIVEN. PT DENIES CP. PT ON RA WITH SPO2 >94%. LUNGS CLEAR/DIM. PIV TO RFA/RAC BOTH PATENT. PUREWICK DRAINING TO SUCTION. URINE OUTPUT GREATLY IMPROVED THIS SHIFT, TAMEKA/YELLOW IN COLOR. TOLERATING PO INTAKE. NO BM THIS SHIFT. BED LOCKED, CALL LIGHT IN REACH.
[2025-04-26] MEDS ORDERED: LORazepam 2 MG/ML 1ML Injection IV PRN (07:35)
--- NOTE | 2025-04-26 16:56 | NUR ---
SHIFT SUMMARY PT ASLEEP IN BED AT TIME OF BEDSIDE REPORT. PT SEDATED ON PRECEDEX AT SHIFT START, WAS ABLE TO ROUSE EASILY AND A/OX4. PT ABLE TO MOVE ALL EXTREMITIES SPONTANEOUSLY AND CALLS APPROPRIATELY. CIWA SCORES RANGE FROM 6-9, SYMPTOMS WELL TREATED W/ MEDS PER MAR. PT TREMULOUS AND ABLE TO GET TO CHAIR W/ MOD ONE PERSON ASSIST AND FWW. NSR ON MONITOR, MAPS>65, CAP REFILL < 3 SEC, AND NO NOTED EDEMA. LUNG SOUNDS CLEAR/DIM T/O CA, BREATHS UNLABORED AND PT DENIES SOB. ABD MODERATELY DISTENDED AND FIRM, PT STATES THIS IS BASELINE AND DENIES TENDERNESS. BOWEL SOUNDS PRESENT IN ALL QUADRANTS. PT CONTINENT OF BOWEL/BLADDER, PUREWICK IN PLACE FOR COMFORT. SKIN INTACT AND W/O BREAKDOWN. NS 75ML/HR
[2025-04-27] VITALS (11 sets, daily range): BP systolic 106–198; BP diastolic 68–109
[2025-04-27 03:21] LABS: BASOPHILS ABSOLUTE AUTO 0.03 K/mm3 (0.00-0.23); BASOPHILS PERCENT AUTO 1 % (0-2); EOSINOPHILS ABSOLUTE AUTO 0.15 K/mm3 (0.00-0.68); EOSINOPHILS PERCENT AUTO 4 % (0-6); Hematocrit 45.0 % (37.0-53.0); Hemoglobin 14.4 g/dL (13.5-17.5); IMMATURE GRAN ABSOLUTE AUTO 0.02 K/mm3 (0.00-0.10); IMMATURE GRAN PERCENT AUTO 1 % (0-1); LYMPHOCYTES ABSOLUTE AUTO 0.52 K/mm3 (0.84-5.20); LYMPHOCYTES PERCENT AUTO 12 % (21-46); MONOCYTES ABSOLUTE AUTO 0.53 K/mm3 (0.16-1.47); MONOCYTES PERCENT AUTO 13 % (4-13); Mean Corpuscular HGB Conc 32.0 g/dL (31.5-36.5); Mean Corpuscular Volume 87 fL (80-100); NEUTROPHILS ABSOLUTE AUTO 2.96 K/mm3 (1.96-9.15); NEUTROPHILS PERCENT AUTO 70 % (41-73); NRBC ABSOLUTE 0.00 K/mm3 (0.00-0.02); NRBC Auto 0.0 /100 WBC (0.0-0.2); Platelet Count 72 K/mm3 (150-400); RDW Coefficient Variation 19.9 % (11.7-14.2); RDW Standard Deviation 61.4 fL (35.1-46.3)
[2025-04-27 03:43] LABS: Magnesium, Blood 1.9 mg/dL (1.6-2.4)
[2025-04-27 03:56] LABS: Alanine Aminotransfer (ALT/SGP 63.0 U/L (12-78); Albumin, Blood 4.2 g/dL (3.4-5.0); Albumin/Globulin Ratio 1.1 (0.8-1.8); Anion Gap 7.0 mmol/L (3-11); Aspartate Aminotrans (AST/SGOT 70.0 U/L (12-37); Bilirubin, Total 1.3 mg/dL (0.1-1.0); Blood Urea Nitrogen 18.0 mg/dL (8-24); CO2, Blood 27.0 mmol/L (21-32); Chloride, Blood 101.0 mmol/L (98-108); Creatinine, Blood 0.89 mg/dL (0.60-1.20); Globulin, Blood 3.9 g/dL (2.2-4.0); Glucose, Blood 82.0 mg/dL (70-99); Phosphorus, Blood 3.4 mg/dL (2.5-4.9); Potassium, Blood 4.3 mmol/L (3.5-5.5); Sodium, Blood 131.0 mmol/L (136-145); Total Protein, Blood 8.1 g/dL (6.4-8.2)
[2025-04-27 04:18] LABS: Calcium, Blood 9.2 mg/dL (8.5-10.1)
--- NOTE | 2025-04-27 05:08 | NUR ---
SHIFT SUMMARY Pt calm and pleasant all shift. Slight confusion, reported high anxiety, mild headache and tremors. Given librium and ativan. Gave clonidine x1 for SBP >180 despite withdrawal meds - BP responded very well. Good UOP via purewick. mIVF continue at 75 mL/hr. Na+ dropped from 133--> 131 on AM labs. L arm with area of redness/edema - outlined and monitored.
[2025-04-27] MEDS ORDERED: Mag Sulfate 1 GM/D5% 100ML 100 ML IV STA (06:57)
--- NOTE | 2025-04-27 07:12 | NUR ---
REPORT RECIEVED FROM ANDREA STARK THE PT HAS SITTING UP IN THE CHAIR AND WAS PARTICIPATING IN BEDSIDE SHIFT REPORT. CHAIR ALARM INTACT. ON THE MONITOR THE PT IS IN SR 70'S W/ OCCASIONAL PVC'S. HTN NOTED ON MONITOR AND NEW ANTI-HYPERTENSIVES STARTED FROM PROVIDER WHO HAD JUST ROUNDED ON THE PT. THE PT IS ALERT AND OREINTEDX3-4, RESTING WITH EASE IN THE CHAIR, AND ONLY CONCERN WAS BEING ABLE TO AMBULATE THIS SHIFT TO BUILD HIS STRENGTH BACK UP. THE PT IS ON RA W/ SP02 >94% AND BREATHING IS UNLABORED. NS CURRENTLY INFUSING AT 75ML/HR, WHICH THE PROVIDER STATED THEY WOULD DISCONTINUE. SEE NOTES FOR UDPATES.
--- NOTE | 2025-04-27 18:50 | NUR ---
END OF SHIFT UPDATES THE PT HAS BEEN A&OX3-4,1P ASSIST W/ FWW, CIWA'S FROM 3-7. MEDICATIONS GIVEN PER EMAR. PCU STATUS. HE HAS BEEN SR/ST ON TELE 70'S-140'S. THIS AFTERNOON HIS HR WAS 140'S WITH ACTIVITY. THIS WAS DISCUSSED WITH DR. FRAUSTO. DR. FRAUSTO WANTS TO ASSESS DURING THE NIGHT AND EVALUATE IN THE MORNING FOR STARTING NEW MEDICATIONS .HTN HAS BEEN NOTED T/O THE DAY. PRN HYDRALIZINE FOR SBP >170. PO PROCARDIA XL STARTED THIS MORNING. THE PT HAS BEEN WITHOUT ANY ANGINA OR CHEST PRESSURE. SP02 >93% ON RA AND HE DENIES ANY SOB. MALE WICKING SYSTEM SET UP TO SUCTION. URINE WAS TAMEKA BUT HAS SINCE BECAME DARK YELLOW. NO BOWEL MOVEMENT THIS SHIFT. HIS PARENTS CAME TO BEDSIDE AND UPDATED ON CARE. SEE NOTES FOR UDPATES.
[2025-04-28 03:27] VITALS: BP 175/93
[2025-04-28 03:35] LABS: BASOPHILS ABSOLUTE AUTO 0.04 K/mm3 (0.00-0.23); BASOPHILS PERCENT AUTO 1 % (0-2); EOSINOPHILS ABSOLUTE AUTO 0.20 K/mm3 (0.00-0.68); EOSINOPHILS PERCENT AUTO 4 % (0-6); Hematocrit 43.3 % (37.0-53.0); Hemoglobin 13.9 g/dL (13.5-17.5); IMMATURE GRAN ABSOLUTE AUTO 0.03 K/mm3 (0.00-0.10); IMMATURE GRAN PERCENT AUTO 1 % (0-1); LYMPHOCYTES ABSOLUTE AUTO 0.73 K/mm3 (0.84-5.20); LYMPHOCYTES PERCENT AUTO 13 % (21-46); MONOCYTES ABSOLUTE AUTO 0.93 K/mm3 (0.16-1.47); MONOCYTES PERCENT AUTO 16 % (4-13); Mean Corpuscular HGB Conc 32.1 g/dL (31.5-36.5); Mean Corpuscular Volume 86 fL (80-100); NEUTROPHILS ABSOLUTE AUTO 3.73 K/mm3 (1.96-9.15); NEUTROPHILS PERCENT AUTO 66 % (41-73); NRBC ABSOLUTE 0.00 K/mm3 (0.00-0.02); NRBC Auto 0.0 /100 WBC (0.0-0.2); Platelet Count 98 K/mm3 (150-400); RDW Coefficient Variation 19.6 % (11.7-14.2); RDW Standard Deviation 60.8 fL (35.1-46.3)
[2025-04-28 03:55] LABS: Alanine Aminotransfer (ALT/SGP 60.0 U/L (12-78); Albumin, Blood 3.5 g/dL (3.4-5.0); Albumin/Globulin Ratio 0.8 (0.8-1.8); Anion Gap 12.0 mmol/L (3-11); Aspartate Aminotrans (AST/SGOT 68.0 U/L (12-37); Bilirubin, Total 1.1 mg/dL (0.1-1.0); Blood Urea Nitrogen 16.0 mg/dL (8-24); CO2, Blood 23.0 mmol/L (21-32); Calcium, Blood 9.1 mg/dL (8.5-10.1); Chloride, Blood 102.0 mmol/L (98-108); Creatinine, Blood 0.88 mg/dL (0.60-1.20); Globulin, Blood 4.2 g/dL (2.2-4.0); Glucose, Blood 90.0 mg/dL (70-99); Magnesium, Blood 1.9 mg/dL (1.6-2.4); Phosphorus, Blood 3.5 mg/dL (2.5-4.9); Potassium, Blood 3.8 mmol/L (3.5-5.5); Sodium, Blood 133.0 mmol/L (136-145); Total Protein, Blood 7.7 g/dL (6.4-8.2)
--- NOTE | 2025-04-28 06:16 | NUR ---
NO ACUTE EVENTS OVERNIGHT. PT WAS INTERMITTENTLY CONFUSED. PT KNOWS THE DATE, WHERE HE IS, AND HIS LOCATION...BUT PT THOUGHT THE CURRENT PRESIDENT IS "XENA NAVARRO". PT CALLED 911 FROM HIS CELL PHONE. ROTARY RIG ENGINE OPERATOR NOTIFIED CHARGE NURSE. THIS NURSE ASKED PT WHY HE CALLED 911, AND HE SAID "I'M SCARED." PT WAS EASILY REOREINTED AND REDIRECTABLE. PT'S CIWA SCORE WAS CONSISTENTLY "8" THROUGHOUT THE NIGHT. PT WAS ASSISTED TO THE CHAIR SO BED LINEN COULD BE CHANGED D/T LEAKING MALE PURWICK. PT CLEANED, PURWICK REPLACED, AND MEDS GIVEN PER JUL. BED ALARM ON. BED LOCKED IN LOWEST POSITION. CALL LIGHT WITHIN REACH.
[2025-04-28] MEDS ORDERED: Mag Sulfate 1 GM/D5% 100ML 100 ML IV STA (06:35)
[2025-04-28 07:41] VITALS: BP 136/79
[2025-04-28 11:47] VITALS: BP 142/74
[2025-04-28 15:16] VITALS: BP 157/90
--- NOTE | 2025-04-28 18:13 | NUR ---
SHIFT SUMMARY PT A&Ox3-4, CALLS AND COMMUNICATES NEEDS SOMEWHAT APPRORIATELY, MOMENTS OF INCREASED FORGETFULNESS. PT HAS MOMENTS OF FORGETTING WHERE HE IS BUT IS ABLE TO BE REORIENTED. CIWA 3-8, MANAGED PER EMAR. BP STABLE, SR-ST 90-110's, DENIES CP/PRESSURE. SpO2> 92% RA, DENIES SOB. 1 ASSIST WITH FWW. INCONTINENT OF URINE, MALE PUREWICK IN PLACE. FULL BEDBATH AND LINEN CHANGE DONE. NO OTHER EVENTS, WILL REPORT TO ONCOMING RN.
[2025-04-28 19:56] VITALS: BP 154/91
--- NOTE | 2025-04-28 20:50 | NUR ---
ASSUMPTION OF CARE REPORT RECEIVED FROM MOR YOST TO ASSUME CARE OF PT. REVIEWED OUTSTANDING ISSUES AND PROBLEMS TO DATE. ASSESSMENT OF PT STARTED. PT DENIES PAIN OR DISCOMFORT AT THIS TIME.
[2025-04-29] VITALS (12 sets, daily range): BP systolic 89–182; BP diastolic 68–110
[2025-04-29 03:35] LABS: BASOPHILS ABSOLUTE AUTO 0.04 K/mm3 (0.00-0.23); BASOPHILS PERCENT AUTO 1 % (0-2); EOSINOPHILS ABSOLUTE AUTO 0.19 K/mm3 (0.00-0.68); EOSINOPHILS PERCENT AUTO 4 % (0-6); Hematocrit 43.9 % (37.0-53.0); Hemoglobin 14.3 g/dL (13.5-17.5); IMMATURE GRAN ABSOLUTE AUTO 0.02 K/mm3 (0.00-0.10); IMMATURE GRAN PERCENT AUTO 0 % (0-1); LYMPHOCYTES ABSOLUTE AUTO 0.63 K/mm3 (0.84-5.20); LYMPHOCYTES PERCENT AUTO 12 % (21-46); MONOCYTES ABSOLUTE AUTO 0.89 K/mm3 (0.16-1.47); MONOCYTES PERCENT AUTO 17 % (4-13); Mean Corpuscular HGB Conc 32.6 g/dL (31.5-36.5); Mean Corpuscular Volume 85 fL (80-100); NEUTROPHILS ABSOLUTE AUTO 3.54 K/mm3 (1.96-9.15); NEUTROPHILS PERCENT AUTO 67 % (41-73); NRBC ABSOLUTE 0.00 K/mm3 (0.00-0.02); NRBC Auto 0.0 /100 WBC (0.0-0.2); Platelet Count 120 K/mm3 (150-400); RDW Coefficient Variation 19.6 % (11.7-14.2); RDW Standard Deviation 60.1 fL (35.1-46.3)
[2025-04-29 03:52] LABS: Alanine Aminotransfer (ALT/SGP 67.0 U/L (12-78); Albumin, Blood 3.6 g/dL (3.4-5.0); Albumin/Globulin Ratio 0.8 (0.8-1.8); Anion Gap 10.0 mmol/L (3-11); Aspartate Aminotrans (AST/SGOT 71.0 U/L (12-37); Bilirubin, Total 1.0 mg/dL (0.1-1.0); Blood Urea Nitrogen 14.0 mg/dL (8-24); CO2, Blood 24.0 mmol/L (21-32); Calcium, Blood 9.4 mg/dL (8.5-10.1); Chloride, Blood 103.0 mmol/L (98-108); Creatinine, Blood 0.91 mg/dL (0.60-1.20); Globulin, Blood 4.4 g/dL (2.2-4.0); Glucose, Blood 96.0 mg/dL (70-99); Magnesium, Blood 1.9 mg/dL (1.6-2.4); Phosphorus, Blood 3.1 mg/dL (2.5-4.9); Potassium, Blood 3.7 mmol/L (3.5-5.5); Sodium, Blood 133.0 mmol/L (136-145); Total Protein, Blood 8.0 g/dL (6.4-8.2)
--- NOTE | 2025-04-29 06:19 | NUR ---
SHIFT SUMMARY PT ETOH SYMPTOMS VERY LABILE DURING NIGHT, CIWA FROM A LOW OF 5 TO A HIGH OF 24, AGITATED/HALLUCINATING/PARANOID AT TIMES, MEDICATED PER PROTOCOL NEEDED. CURRENTLY DENIES ANY SYMPTOMS, CALMLY WATCHING TV, MORE ORIENTED AT THIS TIME. MEDICATED FOR SBP OF 182 X 1, LAST BP 109/76. AFEBRILE T/O NIGHT. WILL UPDATE DAY RN WITH ALL OUTSTANDING ISSUES AND PROBLEMS TO DATE.
--- NOTE | 2025-04-29 14:52 | NUR ---
ASSUMED CARE ASSUMED CARE AT ~0700. A&Ox4, AFEBRILE, PERRLA. CIWA 3. INTERMITTENTLY CONFUSED ABOUT LOCATION. LUNGS CLEAR/DIM MAINTAINS >92% ON RA. HR 90-LOW 100'S, SYSTOLIC BP IN 90'S, MAP >65. MURMUR ON AUSCULTATION. BOWEL SOUNDS ACTIVE. SLIGHT HEADACHE REPORTED. PUREWICK IN PLACE AND SET TO SUCTION. PIV IN R AC AND R FOREARM, WNL.
--- NOTE | 2025-04-29 19:04 | NUR ---
END OF SHIFT PT RESTING IN CHAIR. A&Ox4, AFEBRILE, BUT SOMETIMES CONFUSED ABOUT SETTING. EASILY REDIRECTABLE. PERRLA. HR IN 90-120'S, BP SYSTOLIC 90-130'S, MAP >65. MAINTAINS >92% RA. BOWEL SOUNDS PRESENT. PUREWICK ATTACHED TO SUCTION. GOOD UOP, SEE I/O'S.
[2025-04-30 00:22] VITALS: BP 152/81
[2025-04-30 03:24] LABS: BASOPHILS ABSOLUTE AUTO 0.05 K/mm3 (0.00-0.23); BASOPHILS PERCENT AUTO 1 % (0-2); EOSINOPHILS ABSOLUTE AUTO 0.25 K/mm3 (0.00-0.68); EOSINOPHILS PERCENT AUTO 4 % (0-6); Hematocrit 44.1 % (37.0-53.0); Hemoglobin 14.0 g/dL (13.5-17.5); IMMATURE GRAN ABSOLUTE AUTO 0.03 K/mm3 (0.00-0.10); IMMATURE GRAN PERCENT AUTO 0 % (0-1); LYMPHOCYTES ABSOLUTE AUTO 0.97 K/mm3 (0.84-5.20); LYMPHOCYTES PERCENT AUTO 15 % (21-46); MONOCYTES ABSOLUTE AUTO 1.32 K/mm3 (0.16-1.47); MONOCYTES PERCENT AUTO 20 % (4-13); Mean Corpuscular HGB Conc 31.7 g/dL (31.5-36.5); Mean Corpuscular Volume 87 fL (80-100); NEUTROPHILS ABSOLUTE AUTO 4.06 K/mm3 (1.96-9.15); NEUTROPHILS PERCENT AUTO 61 % (41-73); NRBC ABSOLUTE 0.00 K/mm3 (0.00-0.02); NRBC Auto 0.0 /100 WBC (0.0-0.2); Platelet Count 158 K/mm3 (150-400); RDW Coefficient Variation 19.4 % (11.7-14.2); RDW Standard Deviation 61.4 fL (35.1-46.3)
[2025-04-30 03:56] LABS: Albumin, Blood 3.6 g/dL (3.4-5.0); Anion Gap 9 mmol/L (3-11); Blood Urea Nitrogen 25 mg/dL (8-24); CO2, Blood 24 mmol/L (21-32); Calcium, Blood 9.7 mg/dL (8.5-10.1); Chloride, Blood 107 mmol/L (98-108); Creatinine, Blood 1.15 mg/dL (0.60-1.20); Glucose, Blood 92 mg/dL (70-99); Magnesium, Blood 2.1 mg/dL (1.6-2.4); Phosphorus, Blood 4.6 mg/dL (2.5-4.9); Potassium, Blood 4.5 mmol/L (3.5-5.5); Sodium, Blood 135 mmol/L (136-145)
[2025-04-30 04:00] VITALS: BP 153/88
--- NOTE | 2025-04-30 06:23 | NUR ---
SHIFT SUMMARY ETOH WITHDRAWAL SYMPTOMS LESSENING THIS AM, DID REQUIRE ATIVAN X1 MID SHIFT FOR CIWA 24, BUT MORE ORIENTED, LESS ANXIOUS AND AGITATED THIS AM. DENIES SYMPTOMS AND IS APPROP AND COOPERATIVE WITH CARE AT THIS TIME. VSS T/O NIGHT, AFEBRILE. ANXIOUS TO GO HOME. WILL UPDATE DAY RN WITH ANY OUTSTANDING ISSUES AND/OR PROBLEMS TO DATE.
--- NOTE | 2025-04-30 07:00 | NUR ---
ASSUMED CARE ASSUMED CARE AT ~0700. A&Ox4 ALTHOUGH STILL MAKES CONFUSED COMMENTS AT TIMES. CIWA 0. PERRLA. AFEBRILE. LUNGS CLEAR, MAINTAINS >92% ON RA. HR 100-110, BP SYSTOLIC IN 140'S, MAP >65. BOWEL SOUNDS ACTIVE. PUREWICK SET TO SUCTION. SEE SHIFT ASSESSMENT.
[2025-04-30] MEDS ORDERED: Folic Acid 1 MG TAB PO SCH (09:00)
[2025-04-30 09:28] VITALS: BP 140/79
[2025-04-30] MEDS ORDERED: Polyethylene Glycol 3350 17 gm PO PRN (12:05)
[2025-04-30] MEDS ORDERED: Docusate Sodium/Senna 1 Tab PO PRN (12:05)
--- NOTE | 2025-04-30 15:11 | NUR ---
PATIENT TRANSFERED FROM ICU 3 TO ROOM 345. PATIENT ABLE TO AMBULATE HERE WITH FWW AND 1PA. PATIENT A/O X2-3, VERY PLEASANT AND COOPERATIVE WITH CARE. ORIENTED TO ROOM AND USE OF CALL LIGHT. DENIES ANY PAIN OR NEEDS AT THIS TIME.
[2025-04-30 15:27] VITALS: BP 114/79
[2025-04-30 19:44] VITALS: BP 120/75
[2025-04-30] MEDS ORDERED: Prochlorperazine Edisylate 10 mg Vial IV PRN (23:55)
[2025-05-01 04:02] VITALS: BP 149/86
--- NOTE | 2025-05-01 06:13 | NUR ---
SHIFT SUMMARY PATIENT A/OX2-3, ABLE TO MAKE NEEDS KNOWN. PATIENT BECAME DISORIENTED AROUND MIDNIGHT, AGITATED, VERBALLY AGGRESSIVE AND DELUSIONAL. PATIENT BELIEVED HE WAS AT HIS HOME IN [place] AND NURSING STAFF WERE "THIEVES". DIFFICULT TO REORIENT, CIWA SCORE OF 13 AT THIS TIME, MEDICATED PER MAR. HAD ONE EPISODE OF EMESIS, COMPAZINE ADMINISTERED AND EFFECTIVE. MOST RECENT CIWA OF 5. PATIENT WITH NO DOCUMENTED BOWEL MOVEMENT SINCE 04/25, MULTIPLE PRN BOWEL MEDS ADMINISTERED PER JUL. PATIENT CONTINENT/INCOTNIENT OF URINE THIS SHIFT. BED ALARM IN PLACE, PATIENT UNSTEADY ON HIS FEET AND IMPULSIVE. DRESSINGS TO IVs CHANGED TODAY. NO OTHER CONCERNS AT THIS TIME, WILL CONTINUE TO MONITOR.
[2025-05-01 06:57] LABS: Albumin, Blood 3.8 g/dL (3.4-5.0); Anion Gap 7 mmol/L (3-11); Blood Urea Nitrogen 28 mg/dL (8-24); CO2, Blood 25 mmol/L (21-32); Calcium, Blood 9.9 mg/dL (8.5-10.1); Chloride, Blood 107 mmol/L (98-108); Creatinine, Blood 1.00 mg/dL (0.60-1.20); Glucose, Blood 87 mg/dL (70-99); Phosphorus, Blood 4.5 mg/dL (2.5-4.9); Potassium, Blood 3.8 mmol/L (3.5-5.5); Sodium, Blood 135 mmol/L (136-145)
[2025-05-01 07:10] VITALS: BP 126/97
--- NOTE | 2025-05-01 09:00 | NUR ---
Pt laying in bed watching tv, a/oxx 2-3, mostly cooperative with care, follows commands well, states he doesn't feel good but can't define why, denies pain, lungs are clear t/o, on r/a, resp even and unlabored, no cough noted, hrr, no edema noted, ppp+1, cap refill<3 sec, vs stable, afebrile, piv to rac and rw, sites are clear and patent, btx4, abd flat soft nontender, voids via urinal at times, other times is incont, skin c/w/d, naima amador, call light in reach.
--- NOTE | 2025-05-01 10:00 | NUR ---
went to check on pt, he states he needs his black remote to change the tv, gave him his remote for the tv, he states he still needs his black one for the speakers, he could tell me he is in [place], but thinks he's in his house, librium given. call light in reach.
[2025-05-01 16:08] VITALS: BP 97/74
--- NOTE | 2025-05-01 18:02 | NUR ---
pt had a pretty uneventful day, medicated with librium once, parents in to see him, he makes nonsensical comments, like I want kadi for dinner, states he's doing ok this evening, sitting up in chair watching tv, no acute changes this shift. call light in reach.
[2025-05-01 21:05] VITALS: BP 119/84
--- NOTE | 2025-05-02 04:19 | NUR ---
Shift Summary: A&O to self only; from approx. midnight onward, he has been completely confused of place, person, time & situation, his speech is clear however his ability to make his needs known is cloudy due to confusion exhibited. His VS are within his baseline limits; pt. persistently gets OOB and insists that he needs to go either to the foyer or the living room; he is difficult to redirect as he is unable to retain and/or process information. He does not exhibit visible tremors and/or any acute S/S active withdrawal; however, his anxiety and restlessness are at a moderate to high levels; Ativan 1 mg & Librium 25 mg was admin x1 dose as ordered PRN with little to no effect. 2 RNs remained seated right outside pt's door to closely monitor and maintained all safety measures. He is calm and resting in bed with bed alarm on & his call gillis within his reach @ this time.
[2025-05-02 04:45] VITALS: BP 120/86
[2025-05-02 07:20] VITALS: BP 122/86
--- NOTE | 2025-05-02 13:37 | NUR ---
[address] HILL TO ASK FOR TYLENOL OR SIMILAR FOR PATIENT HEADACHE, SHE DID NOT ANSWER. WILL CALL AGAIN IN 2O MINUTES.
--- NOTE | 2025-05-02 13:58 | NUR ---
[address] HILL TO NOTIFY OF PATIENT HAVING HEADACHE AND DR. HILL ADVISED TO ADD TYLENOL 650MG PO Q6 PRN
[2025-05-02 15:17] VITALS: BP 112/69
--- NOTE | 2025-05-02 16:14 | NUR ---
SHIFT SUMMARY PATIENT IS A&OX3, FORGETFUL OF THE DATE. 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 HE IS PLEASANT AND COOPERATIVE WITH CARE. ON ROOM AIR AND WITHOUT TELEMETRY. HE IS INCONTINENT/CONTINENT, USING THE URINAL AND BSC. HE WALKS WITH 1 ASSIST,GB AND FWW. WORKED WITH PT X2 AMBULATING IN THE [facility] TODAY. PLAN IS TO DISCHARGE TO SNF. NO ACUTE EVENTS THIS SHIFT. HE USES THE CALL SYSTEM APPROPRIATELY AND IS ABLE TO MAKE HIS NEEDS KNOWN. BED IS LOW AND LOCKED, CALL LIGHT IN REACH.
[2025-05-02 19:10] VITALS: BP 131/82
--- NOTE | 2025-05-03 01:49 | NUR ---
UP AMBULATING AROUND ROOM WITH WALKER.ENCOURAGED TO RETURN TO BED AND TRY TO SLEEP.
--- NOTE | 2025-05-03 04:07 | NUR ---
SHIFT SUMMARY HERE FOR ETOH W/D. NO SIGNS OR SX OF W/D THROUGHOUT SHIFT. CIWA'S DC'D 05/02. ALERT AND ORIENTED X 1-2. CONFUSED AND FORGETFUL. 1 PERSON ASSIST WITH FWW AND GAIT BELT. RAC AND RFA PIV/BOTH SALINE LOCKED. ON ROOM AIR. INCONTINENT. LAST BM 04/26, BOWEL MEDS GIVEN. HH DIET. SLEPT COMFORTABLY THROUGHOUT THE NIGHT. VSS. BED IN LOWEST POSITION WITH ALARM ON. CALL LIGHT IN REACH.
[2025-05-03 04:09] VITALS: BP 149/89
[2025-05-03 07:08] VITALS: BP 114/78
[2025-05-03 14:36] LABS: Influenza A, PCR NEGATIVE (NEGATIVE); Influenza B, PCR NEGATIVE (NEGATIVE); Resp Syncytial Virus, PCR NEGATIVE (NEGATIVE); SARS-Cov-2 (COVID-19) PCR, MMC NEGATIVE (NEGATIVE)
[2025-05-03 15:21] VITALS: BP 111/92
[2025-05-03] MEDS ORDERED: Acetaminophen650 M1 PO (15:38)
[2025-05-03] MEDS ORDERED: BISA10S PR (15:38)
[2025-05-03] MEDS ORDERED: Calcium Carbon500 MG PO (15:40)
[2025-05-03] MEDS ORDERED: FT SENNA-S 8.61 EACH PO (15:41)
[2025-05-03] MEDS ORDERED: Lopressor 25 mg25 MG PO (15:48)
[2025-05-03] MEDS ORDERED: MIRALAX17 GM PO (15:49)
[2025-05-03] MEDS ORDERED: TRAZ50 PO (15:49)
--- NOTE | 2025-05-03 16:08 | NUR ---
PT TRANSFERED TO [facility] AT 1605. ALL PAPERWORK WAS REVIEWED WITH FAMILY AND PT. NO DISTRESS NOTED AND PT WAS A STAND BY WITH WALKER TO CHAIR. REPORT WAS CALLED TO [facility] RECIEVING NURSE PRIOR TO DISCHARGE. [facility] TOOK PACKET AND TRANFERED PT OUT VIA WHEELCHAIR.
== END 2025-05-03 16:05 | DRG 897 ==
LOC: ER 04:26 → MEDS 08:04 → ERHOLD 08:04 → ICUE 08:04 → EDBEDREQSVC 10:46 → EDBEDREQ 10:46 → ICUE 11:41 → MEDS 04-30 14:37
PROVIDERS: Hospitalist; Student in an Organized Health Care Education/Training Program; ADMIT Family Medicine
DX: F10.239 Alcohol dependence with withdrawal, unspecified (principal); E87.1 Hypo-osmolality and hyponatremia; M87.9 Osteonecrosis, unspecified; F10.229 Alcohol dependence with intoxication, unspecified; I10 Essential (primary) hypertension; Z96.641 Presence of right artificial hip joint; F17.220 Nicotine dependence, chewing tobacco, uncomplicated; K70.30 Alcoholic cirrhosis of liver without ascites; D64.9 Anemia, unspecified; R10.11 Right upper quadrant pain; E87.6 Hypokalemia; D69.6 Thrombocytopenia, unspecified; E11.42 Type 2 diabetes mellitus with diabetic polyneuropathy; E83.42 Hypomagnesemia; E83.39 Other disorders of phosphorus metabolism; R53.81 Other malaise; F41.9 Anxiety disorder, unspecified; G47.00 Insomnia, unspecified; R09.81 Nasal congestion; R45.1 Restlessness and agitation; Z68.28 Body mass index [BMI] 28.0-28.9, adult; Z23 Encounter for immunization; Z87.39 Personal history of other diseases of the musculoskeletal system and connective tissue; Z79.899 Other long term (current) drug therapy; Z87.19 Personal history of other diseases of the digestive system; Z87.81 Personal history of (healed) traumatic fracture; Z98.890 Other specified postprocedural states; Z86.19 Personal history of other infectious and parasitic diseases
CPT/HCPCS: 36415; 80053; 80069; 80320; 81001; 82270; 82330; 83735; 84100; 85025; 87637; 94760; 96361; 96374; 96375; 96376; 97110; 97116; 97161; 97166; 97530; 97535; 99285-25; A9270; J0360; J0612; J0780; J1650; J2060; J2405; J2560; J3411; J3475; J7030